=== PATIENT | male | born 1945 | race Hispanic/Latino ===

== ENCOUNTER → 2018-02-07 | Day surgery (SDC) | payer OTHER ==
[~2018-02-07] MED LIST: EPHEDRINE SULF 50 MG/ML SYR ONE; FENTANYL CITR 100 MCG/2 ML ONE; GLYCOPYRROLATE 0.2 MG/ML SYR ONE; LIDOCAINE 4% TOP SOLUTION ONE; NA CHLORIDE 0.9% 1,000 ML ONE; PROPOFOL 200 MG/20 ML VIAL IV ONE; Phenylephrine HCl 10 MG/ML 1 ML VIAL ONE
--- NOTE | 2018-02-08 07:39 | P.OP ---
Date of Service: 02/07/18 Findings and Operative Technique Patient is 73 years of age evaluated by me with hoarseness and a left upper lobe lung mass Narrative report after dinner in obtaining informed consent from the patient he was premedicated by anesthesia findings Normal vocal cords normal trachea normal right and left-sided bronchial anatomy is left upper lobe bronchial anatomy was a little abnormal most likely some mucosal protrusions or anomalies I was unable to visualize the lesion on fluoroscopy multiple biopsies and lavage were sent patient tolerated the procedure very well and there is no evidence of postoperative pneumothorax
== END | disposition home or self-care (01) ==
LOC: MERGE 06:50 → OR 06:50 → EDBD 08:00
PROVIDERS: ATTEND Internal Medicine Sleep Medicine
PROC: 0BB88ZX Excision of Left Upper Lobe Bronchus, Via Natural or Artificial Opening Endoscopic, Diagnostic (ICD-10-PCS; principal; 2018-02-07)
PROC: 0B9G8ZX Drainage of Left Upper Lung Lobe, Via Natural or Artificial Opening Endoscopic, Diagnostic (ICD-10-PCS; 2018-02-07)
DX: C34.12 Malignant neoplasm of upper lobe, left bronchus or lung (principal); J61 Pneumoconiosis due to asbestos and other mineral fibers; J44.9 Chronic obstructive pulmonary disease, unspecified; F17.210 Nicotine dependence, cigarettes, uncomplicated; E11.9 Type 2 diabetes mellitus without complications; I10 Essential (primary) hypertension
CPT/HCPCS: 31624; 31625; 82962; 88108; 88305 ×2; J2370; J3010; J7030

== ENCOUNTER → 2018-03-31 | Day surgery (SDC) | payer OTHER ==
--- OUTSIDE RECORDS SUMMARY | 2018-03-31 10:27 | XMS REPORT | Clinical Summary ---
:1945 Author Organization [facility] Address [address] [place] [id number] Care Team Providers Name Role Phone Asked, No Pcp Primary Care Provider Unavailable Allergies No Known Allergies Current Medications Prescription Sig. Disp. Refills Start Date End Date Status metFORMIN (GLUCOPHAGE) 500 02/13/2018 Active mg tablet lisinopril-hydrochlorothia TAKE BY MOUTH 1 3 03/02/2018 Active zide (PRINZIDE,ZESTORETIC) TABLET DAILY 20-12.5 mg per tablet finasteride (PROSCAR) 5 mg Take 5 mg by mouth 1 12/09/2017 Active tablet daily. tamsulosin (FLOMAX) 0.4 mg 02/13/2018 Active capsule,extended release 24hr potassium chloride 20 mEq Take 1 tablet by 0 02/27/2018 Active tablet extended release mouth daily. simvastatin (ZOCOR) 20 MG Take 20 mg by Active tablet mouth nightly. pentoxifylline (TRENTal) Take 400 mg by Active 400 mg CR tablet mouth 3 (three) times a day with meals. Active Problems No known active problems Encounters Date Type Specialty Care Team Description 03/16/2018 Telephone Cardiothoracic Surgery Sha Marie MD 03/14/2018 Hospital Encounter Cardiothoracic Surgery Sha aMrie Malignant neoplasm MD Binta of lung, unspecified laterality, unspecified part of lung (Primary Dx) 03/14/2018 Procedure Pass Cardiothoracic Surgery 03/14/2018 Surgery Cardiothoracic Surgery Sha Marie MD BRONCHOSCOPY, EBUS W/ BIOPSY 03/13/2018 Anesthesia Event Cardiothoracic Surgery Domingo Tavarez MD 03/10/2018 Hospital Encounter Radiology Sha Marie MD 03/10/2018 Ancillary Orders Radiology Sha Marie MD 03/09/2018 Lab Lab Sha Marie Lung mass; MD Binta LAD (lymphadenopathy), mediastinal; Pre-op testing 03/09/2018 Hospital Encounter Radiology Sha Marie MD 03/09/2018 Hospital Encounter Radiology Sha Marie MD 03/09/2018 Office Visit Cardiothoracic Surgery Sha Marie Lung mass ( Primary Dx); MD Binta LAD (lymphadenopathy), mediastinal; Pre-op testing 03/09/2018 Orders Only General Surgery Abdirashid Owen MD 03/09/2018 Ancillary Orders Sha Zavala MD 02/28/2018 Telephone Cardiothoracic Surgery Aurea Park MA 02/28/2018 Orders Only Cardiothoracic Surgery Provider, MD Brianda after 03/30/2017 Family History Medical History Relation Name Comments Diabetes Father Congenital heart disease Mother Diabetes Mother Relation Name Status Comments Father Mother Social History Tobacco Use Types Packs/Day Years Used Date Former Smoker Cigarettes 1 30 Quit: 03/02/2018 Smokeless Tobacco: Never Used Comments: quit for 6 year in 1995 Alcohol Use Drinks/Week oz/Week Comments Yes 6 Cans of beer 3.6 Sex Assigned at Date Recorded Not on file Last Filed Vital Signs Vital Sign Reading Time Taken Blood Pressure 98/55 03/14/2018 10:45 AM CDT Pulse 77 03/14/2018 10:45 AM CDT Temperature 36.9 C (98.5 F) 03/14/2018 10:45 AM CDT Respiratory Rate 18 03/14/2018 10:45 AM CDT Oxygen Saturation 98% 03/14/2018 10:45 AM CDT Inhaled Oxygen Concentration - - Weight 70.8 kg (156 lb) 03/14/2018 5:43 AM CDT Height 175.3 cm (5' 9") 03/14/2018 5:43 AM CDT Body Mass Index 23.04 03/14/2018 5:43 AM CDT Plan of Treatment Health Maintenance Due Date Last Done Comments COLON CANCER SCREENING 01/11/1994 SHINGRIX VACCINE (#1) 01/11/1994 ZOSTER VACCINE 2004 PNEUMOCOCCAL POLYSACCHARIDE VACCINE AGE 65 AND OVER 01/11/2009 PNEUMOCOCCAL-13 01/11/2009 INFLUENZA VACCINE 04/05/2018 Procedures Procedure Name Priority Date/Time Associated Comments Diagnosis XR CHEST 1 VW STAT 03/14/2018 9:47 Results for this PORTABLE AM CDT procedure are in the results section. POC GLUCOSE Routine 03/14/2018 9:24 Results for this AM CDT procedure are in the results section. CYTOLOGY Routine 03/14/2018 9:23 Results for this (NON-GYNECOLOGICAL) AM CDT procedure are in REQUEST the results section. CYTOLOGY Routine 03/14/2018 9:22 Results for this (NON-GYNECOLOGICAL) AM CDT procedure are in REQUEST the results section. CYTOLOGY Routine 03/14/2018 9:22 Results for this (NON-GYNECOLOGICAL) AM CDT procedure are in REQUEST the results section. CYTOLOGY Routine 03/14/2018 9:22 Results for this (NON-GYNECOLOGICAL) AM CDT procedure are in REQUEST the results section. CYTOLOGY Routine 03/14/2018 9:22 Results for this (NON-GYNECOLOGICAL) AM CDT procedure are in REQUEST the results section. CYTOLOGY Routine 03/14/2018 9:19 Results for this (NON-GYNECOLOGICAL) AM CDT procedure are in REQUEST the results section. CO AN ELECTIVE Routine 03/14/2018 8:12 ENDOTRACHEAL AIRWAY AM CDT Procedure Note - Nixon Fraga CRNA - 03/14/2018 8:12 AM CDT Airway Date/Time: 03/14/2018 8:02 AM Performed by: NIXON FRAGA Authorized by: DOMINGO TAVAREZ Location: OR Urgency: Elective Difficult Airway: No Anesthesiologist: DOMINGO TAVAREZ Resident/BOWLING BALL MARKER/AA: NIXON FRAGA Other Anesthesia Staff: JAMES PINK Performed by: other anesthesia staff Preoxygenated with 100% O2: Yes C-spine Precautions Maintained Throughout: Yes Mask Ventilation: Not attempted Final Airway Type: Endotracheal airway Final Endotracheal Airway: ETT Cuffed: Yes Technique Used: Direct laryngoscopy Devices/Methods Used in Placement: Intubating stylet Insertion Site: Oral Blade Type: Lyn Laryngoscope Blade/Videolaryngoscope Blade Size: 2 ETT Size (mm): 9.0 Cuff at minimum occlusion pressure: Yes Measured from: Lips ETT to Lips (cm): 23 Placement Verified by: CO2 detection, direct visualization and equal breath sounds Laryngoscopic view: Grade I - full view of glottis Rapid Sequence Induction (RSI): No Modified RSI: No Number of Attempts at Approach: 1 Pt ramped into sniffing position for alignment of airway axes. Atraumatic laryngoscopy and intubation. Eyelids taped fully closed after loss of lash reflex. DL x 1, visualized ETT passing through vocal cords. Placement confirmed: bilateral, equal breath sounds, + etCO2. Head and neck maintained in neutral alignment with spine throughout. Lips/dentition/oral structures as preinduction. All facial structures and occiput protected from pressure/compression. All bony prominences free of pressure. All pressure points padded. B arms wrapped securely in foam padding, <90 degree abduction from midline. ECG 12-LEAD STAT 03/14/2018 5:45 AM Results for this CDT procedure are in the results section. POC GLUCOSE Routine 03/14/2018 5:41 AM Results for this CDT procedure are in the results section. TYPE AND SCREEN Routine 03/09/2018 1:11 PM Lung mass Results for this CDT LAD procedure are in (lymphadenopathy the results ), mediastinal section. Pre-op testing CBC WITH PLATELET AND Routine 03/09/2018 12:00 AM Results for this DIFFERENTIAL CDT procedure are in the results section. PROTHROMBIN TIME WITH Routine 03/09/2018 12:00 AM Results for this INR CDT procedure are in the results section. PARTIAL THROMBOPLASTIN Routine 03/09/2018 12:00 AM Results for this TIME (PTT) CDT procedure are in the results section. COMPREHENSIVE METABOLIC Routine 03/09/2018 12:00 AM Results for this PANEL CDT procedure are in the results section. MRI BRAIN W WO CONTRAST Routine 02/24/2018 12:[address] WHOLE BODY Routine 02/23/2018 10:04 AM Results for this EXTERNAL STUDY CDT procedure are in the results section. PET CT SKULL BASE MID Routine 02/23/2018 12:00 AM THIGH EXTERNAL STUDY CDT CT NECK EXTERNAL STUDY Routine 01/20/2018 4:18 PM Results for this CDT procedure are in the results section. CT CHEST EXTERNAL STUDY Routine 01/20/2018 4:18 PM Results for this CDT procedure are in the results section. CT CHEST W CONTRAST Routine 01/20/2018 12:00 AM CDT after 03/30/2017 Results XR Chest 1 Vw Portable (03/14/2018 9:47 AM) Narrative Performed At Study:XR CHEST 1 VW PORTABLE [facility] History: Post-op surgery COMPARISON: CT chest external study January 20, 2018. IMPRESSION: A single view of the chest. Faint nodular opacity in the left upper lobe measuring 2.7 cm and some subpleural opacity in the lingula similar to the prior CT chest. No pneumothorax. Mild streaky faint opacity in the right lung base could be due to some degree of pneumonitis. Cardiac silhouette is normal.Visualized osseous structures arewithout acute abnormality. [facility]-[id number] Procedure Note Hm Interface, Radiology Results Incoming - 03/14/2018 9:53 AM CDT Study:XR CHEST 1 VW PORTABLE History: Post-op surgery COMPARISON: CT chest external study January 20, 2018. IMPRESSION: A single view of the chest. Faint nodular opacity in the left upper lobe measuring 2.7 cm and some subpleural opacity in the lingula similar to the prior CT chest. No pneumothorax. Mild streaky faint opacity in the right lung base could be due to some degree of pneumonitis. Cardiac silhouette is normal. Visualized osseous structures are without acute abnormality. [facility]-[id number] Performing Organization Address City/[facility] Phone Number [address] [address] POC glucose (03/14/2018 9:24 AM)Only the most recent of2 resultswithin the time period is included. POC glucose 110 (H) 65 - 99 mg/dL [facility] DEPARTMENT OF PATHOLOGY Comment: AND GENOMIC MEDICINE [facility] Notified RN Meter ID: [id number] Management Consultant: Rayo Fraga Performing Organization Address City/[facility] Phone Number [facility] DEPARTMENT OF PATHOLOGY AND [address] [place] [address] GENOMIC MEDICINE Cytology (non-gynecological) request (03/14/2018 9:23 AM)Only the most recent of6 resultswithin the time period is included. [facility] DEPARTMENT OF PATHOLOGY AND GENOMIC MEDICINE Cytology See link below for PDF [facility] DEPARTMENT OF (non-gynecological) report Lab Report PATHOLOGY AND GENOMIC MEDICINE Result status This is Final Report to [facility] DEPARTMENT OF [id number] PATHOLOGY AND GENOMIC MEDICINE Performing Organization Address City/[facility] Phone Number [facility] DEPARTMENT OF PATHOLOGY AND [address] [place] [phone] GENOMIC MEDICINE ECG 12 lead (03/14/2018 5:45 AM) Ventricular rate 82 [facility]USE Atrial rate 82 [facility] MUSE CO interval 148 [facility] MUSE QRSD interval 86 [facility] QT interval 386 [facility] MUSE QTC interval 450 [facility] MUSE P axis 1 48 [facility] MUSE QRS axis 1 23 [facility] MUSE T wave axis 59 [facility] MUSE EKG impression Normal sinus rhythm-Cannot rule out Anteroseptal infarct ( cited on or before 14-MAR-2018)-Abnormal ECG-In automated comparison with ECG of 10-JUL-2012 11:48,-Questionable change in initial forces of Ant [facility] MUSE eroseptal leads- Performing Organization Address City/[facility]/Zipcode Phone Number [facility] MUSE [address] [place] [address] Type and screen (03/09/2018 1:11 PM) ABO grouping A [facility] DEPARTMENT OF PATHOLOGY AND GENOMIC MEDICINE Rh type POS [facility] DEPARTMENT OF PATHOLOGY AND GENOMIC MEDICINE Antibody screen (gel) NEG [facility] DEPARTMENT OF PATHOLOGY AND GENOMIC MEDICINE Specimen Blood Performing Organization Address City/[facility]/Zipcode Phone Number [facility] DEPARTMENT OF PATHOLOGY AND [address] [place] [address] [employer] Partial thromboplastin time, activated (03/09/2018) PTT 31 22 - 34 sec [employer] [facility] Comment: This test has not been validated for monitoring unfractionated heparin therapy. For testing that is validated for this type of therapy, please refer to the Heparin Anti-Xa assay (test code 49037). For additional information, please refer to http://education.Graviton/faq/FTS340 (This link is being provided for informational/educational purposes only.) Narrative Performed At FASTING: UNKNOWN [facility] Resulting Agency Comment Performing Organization Information: Site ID: [id number] Name: [facility] Address: [address] [place] [phone] Director: Rita Webb Performing Organization Address City/State/Zipcode Phone Number [employer] [facility] [address] [place] [phone] Prothrombin time with INR (03/09/2018) INR 1.0 [employer] [facility] Comment: Reference Range 0.9-1.1 Moderate-intensity Warfarin Therapy 2.0-3.0 Higher-intensity Warfarin Therapy 3.0-4.0 Prothrombin time 11.0 9.0 - 11.5 sec [employer] [facility] Comment: For more information on this test, go to: http://education.EVRST/faq/YOZ065 Narrative Performed At FASTING: UNKNOWN [facility] Resulting Agency Comment Performing Organization Information: Site ID: [facility] Name: [facility] Address: [address] [place] [phone] Director: Rita Webb Performing Organization Address City/State/Zipcode Phone Number [employer] [address] [address] CBC with platelet and differential (03/09/2018) WBC 8.4 3.8 - 10.8 Thousand/uL [employer] [facility] RBC 5.17 4.20 - 5.80 Million/uL [employer] [facility] HGB 15.0 13.2 - 17.1 g/dL [employer] [facility] HCT 43.8 38.5 - 50.0 % [employer] [facility] MCV 84.7 80.0 - 100.0 fL [employer] [facility] MCH 29.0 27.0 - 33.0 pg [employer] [facility] MCHC 34.2 32.0 - 36.0 g/dL [employer] [facility] RDW 14.2 11.0 - 15.0 % [employer] [facility] Platelet count 248 140 - 400 Thousand/uL [employer] [facility] MPV 9.9 7.5 - 12.5 fL [employer] [facility] Neutrophils, absolute 5,620 1,500 - 7,800 cells/uL [employer] [facility] Lymphocytes, absolute 1,957 850 - 3,900 cells/uL [employer] [facility] Monocytes, absolute 512 200 - 950 cells/uL [employer] [facility] Eosinophils, absolute 227 15 - 500 cells/uL [employer] [facility] Basophils, absolute 84 0 - 200 cells/uL [employer] [facility] Neutrophils 66.9 % [employer] [facility] Lymphocytes 23.3 % [employer] [facility] Monocytes 6.1 % [employer] [facility] Eosinophils 2.7 % [employer] [facility] Basophils + RC 1.0 % [employer] [facility] Narrative Performed At FASTING: UNKNOWN [facility] Resulting Agency Comment Performing Organization Information: Site ID: [id number] Name: [facility] Address: [address] [place] [phone] Director: Rita Webb Performing Organization Address [facility] Phone Number [employer] [facility] [address] [place] [phone] Comprehensive metabolic panel (03/09/2018) Glucose 103 (H) 65 - 99 mg/dL [employer] Comment: [facility] Fasting reference interval For someone without known diabetes, a glucose value between 100 and 125 mg/dL is consistent with prediabetes and should be confirmed with a follow-up test. BUN, whole blood 13 7 - 25 mg/dL [employer] [facility] Creatinine 0.91 0.70 - 1.18 [employer] Comment: mg/dL [facility] For patients >49 years of age, the reference limit for Creatinine is approximately 13% higher for people identified as -Tunisian. EGFR Non-Afr. Tunisian 83 > OR=60 [facility] mL/min/1.73m2 [facility] EGFR 96 > OR=60 [facility] mL/min/1.73m2 [facility] BUN/creatinine ratio NOT APPLICABLE 6 - 22 (calc) [employer] [facility] Sodium 138 135 - 146 mmol/L [employer] [facility] Potassium 4.5 3.5 - 5.3 mmol/L [employer] [facility] Chloride 98 98 - 110 mmol/L [employer] [facility] CO2 33 (H) 20 - 31 mmol/L [employer] [facility] Calcium 9.7 8.6 - 10.3 mg/dL [employer] [facility] Protein 7.2 6.1 - 8.1 g/dL [employer] [facility] Albumin, S 4.4 3.6 - 5.1 g/dL [employer] [facility] Globulin, total 2.8 1.9 - 3.7 g/dL [employer] (calc) [facility] Albumin/globulin ratio 1.6 1.0 - 2.5 (calc) [employer] [facility] Total bilirubin 0.5 0.2 - 1.2 mg/dL [employer] [facility] Alkaline phosphatase 102 40 - 115 U/L [employer] [facility] AST 16 10 - 35 U/L [employer] [facility] ALT 16 9 - 46 U/L [employer] [facility] Narrative Performed At FASTING: UNKNOWN [facility] Resulting Agency Comment Performing Organization Information: Site ID: [id number] Name: [facility] Address: [address] [place] [phone] Director: Rita Webb Performing Organization Address City/[facility] Phone Number [employer] [address] [address] MRI Brain W Wo Contrast (02/24/2018) Narrative Performed At PET/CT Whole Body External Study (02/23/2018 10:04 AM) Narrative Performed At This exam was not acquired at a [facility] facility and has not been [facility] interpreted by a [facility] Provider.The exam was imported into our imaging system for comparisons purposes. Performing Organization Address City/[facility] Phone Number [facility] [address] [place] [address] PET/CT Skull Base Mid Thigh External Study (02/23/2018) Narrative Performed At CT Neck External Study (01/20/2018 4:18 PM) Narrative Performed At This exam was not acquired at a [facility] facility and has not been [facility] interpreted by a [facility] Provider.The exam was imported into our imaging system for comparisons purposes. Performing Organization Address [facility] Veg[facility] Phone Number [facility] [address] [place] [address] CT Chest External Study (01/20/2018 4:18 PM) Narrative Performed At This exam was not acquired at a [facility] facility and has not been [facility] interpreted by a [facility] Provider.The exam was imported into our imaging system for comparisons purposes. Performing Organization Address [facility] Phone Number [facility] [address] [place] [address] CT Chest W Contrast (01/20/2018) Narrative Performed At after 03/30/2017 Insurance Payer Benefit Plan / Group Subscriber ID Type Phone Address AETNA MEDICARE AETNA MEDICARE HMO/PPO [facility] xxxxxxxx HMO [phone] [place] [address]
--- NOTE | 2018-03-31 13:22 | RAD REPORT ---
EXAM DESCRIPTION: US - Biopsy Lymph Node - 03/31/2018 12:44 pm CLINICAL HISTORY: C78.1, C78.01 COMPARISON: CT radiation planning study March 28, PET-CT study February 23 TECHNIQUE: Patient presents for imaging guided FNA/biopsy of PET avid lymph nodes in the neck. PET-C T study showed PET avid lymph nodes adjacent to the right-side parotid gland. Preliminary imaging showed an approximately 15 millimeter oval mass or lymph node along the deep pavel in of the parotid gland. An 11 millimeter abnormal lymph node was seen along the inferior margin of t he parotid gland between the gland in the sternocleidomastoid muscle. These are the 2 PET avid lymph nodes seen on the PET-CT study. The smaller more inferior lymph node was felt to be discrete from the parotid gland and distant from the expected path of the facial nerve. The ultrasound-guided biopsy procedure, risks and alternatives were discussed with the patient in det ail. After answering all questions, oral and written consent were obtained. Time out procedure was pe rformed. The upper right neck skin was prepped and draped in the usual sterile fashion. Skin and deeper tissue s were anesthetized with 1% lidocaine. Under direct sonographic visualization the 17 gauge introducer needle was advanced. Tip was placed at the lateral margin of the lymph node. Again under sonographic guidance an 18 gauge biopsy needle was advanced with the tip placed at the lateral margin of the lym ph node. A 1 centimeter core biopsy was obtained. Course of the needle was seen to pass through the l ymph node. Only small fragments of tissue were obtained on the initial biopsy. Two additional 1 centi meter long core biopsies were obtained using a second 18 gauge needle. Sonographic assessment showed needle to traverse the lymph node. Again, only small fragments of tissue were obtained. No additional biopsies performed. The lymph node was technically challenging to access in the patient was having discomfort during the biopsy procedure. All obtained material was given to pathology for assessment. Post biopsy imaging showed no hematoma i n the soft tissues. Patient indicated no pain or pressure at the conclusion of the procedure. Sterile bandage placed to the puncture site. Postprocedure care and precaution instructions were given to th e patient. IMPRESSION: Ultrasound-guided biopsy was performed of 1 of 2 PET avid lymph nodes in proximity to th e right parotid gland. Only small fragments of tissue could be obtained. No further biopsy was performed due to technically challenging positioning of the lymph node and patient discomfort. There are no immediate complications. Postprocedure care and precaution instructions were given to th e patient.
== END ==
LOC: FNA 10:25
PROVIDERS: ATTEND Internal Medicine Medical Oncology
PROC: 07D13ZX Extraction of Right Neck Lymphatic, Percutaneous Approach, Diagnostic (ICD-10-PCS; principal; 2018-03-31)
PROC: BW4FZZZ Ultrasonography of Neck (ICD-10-PCS; 2018-03-31)
DX: C78.01 Secondary malignant neoplasm of right lung (principal); C34.12 Malignant neoplasm of upper lobe, left bronchus or lung
CPT/HCPCS: 38505; 76942; 88305

== ENCOUNTER 2019-02-11 14:17 | Inpatient (IN) | payer OTHER ==
--- OUTSIDE RECORDS SUMMARY | 2019-02-11 14:20 | XMS REPORT | Clinical Summary ---
:1945 Author Organization [facility] Address [address] [place] [address] Care Team Providers Name Role Phone Asked, No Pcp Primary Care Provider Unavailable Allergies No Known Allergies Medications Medication Sig Dispensed Refills Start Date End Date Status metFORMIN (GLUCOPHAGE) 0 02/13/2018 Active 500 mg tablet lisinopril-hydrochloroth TAKE BY MOUTH 1 3 03/02/2018 Active iazide TABLET DAILY (PRINZIDE,ZESTORETIC) 20-12.5 mg per tablet finasteride (PROSCAR) 5 Take 5 mg by 1 12/09/2017 Active mg tablet mouth daily. tamsulosin (FLOMAX) 0.4 0 02/13/2018 Active mg capsule,extended release 24hr potassium chloride 20 Take 1 tablet by 0 02/27/2018 Active mEq tablet extended mouth daily. release simvastatin (ZOCOR) 20 Take 20 mg by 0 Active MG tablet mouth nightly. pentoxifylline (TRENTal) Take 400 mg by 0 Active 400 mg CR tablet mouth 3 (three) times a day with meals. Active Problems No known active problems Encounters Date Type Specialty Care Team Description 03/16/2018 Telephone Cardiothoracic Surgery Sha Marie MD 03/14/2018 Surgery Cardiothoracic Surgery Sha Marie FLEXIBLE MD [facility] BRONCHOSCOPY, EBUS W/ BIOPSY 03/14/2018 Anesthesia Event Cardiothoracic Surgery Domingo Tavarez MD 03/14/2018 Hospital Encounter Cardiothoracic Surgery Sha Marie Malignant neoplasm MD [place] of lung, unspecified laterality, unspecified part of lung (Primary Dx) 03/10/2018 Hospital Encounter Radiology Sha Marie MD 03/09/2018 Lab Lab Sha Marie Lung mass; MD [place] LAD (lymphadenopathy), mediastinal; Pre-op testing 03/09/2018 Hospital Encounter Radiology Sha Marie MD 03/09/2018 Hospital Encounter Radiology Sha Marie MD 03/09/2018 Office Visit Cardiothoracic Surgery Sha Marie Lung mass ( Primary Dx); MD [place] LAD (lymphadenopathy), mediastinal; Pre-op testing 03/09/2018 Orders Only General Surgery Abdirashid Owen MD 02/28/2018 Telephone Cardiothoracic Surgery Aurea Park MA 02/28/2018 Orders Only Cardiothoracic Surgery ProviderBrianda MD after 02/10/2018 Family History Medical History Relation Name Comments [...] Assigned at Date Recorded Not on file Job Start Date Occupation Industry Not on file Not on file Not on file Travel History Travel Start Travel End No recent travel history available. Last Filed Vital Signs Vital Sign Reading [...] Last Done Comments COLON CANCER SCREENING 01/11/1994 SHINGLES VACCINES (#1) 01/11/1994 65+ PNEUMOCOCCAL VACCINE (1 of 2 - PCV13) 01/11/2009 INFLUENZA VACCINE 04/05/2019 Procedures Procedure Name Priority Date/Time Associated Comments Diagnosis XR CHEST 1 VW PORTABLE STAT 03/14/2018 9:47 Results for this AM CDT procedure are [...] procedure are in REQUEST the results section. MISCELLANEOUS REFERRAL Routine 03/14/2018 9:22 Results for this TEST AM CDT procedure are in the results section. CYTOLOGY Routine 03/14/2018 9:19 Results for this (NON-GYNECOLOGICAL) AM CDT procedure are in REQUEST the results section. 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 PET CT SKULL BASE MID Routine 02/23/2018 THIGH EXTERNAL STUDY after 02/10/2018 Results XR Chest 1 Vw Portable (03/14/2018 9:47 AM CDT) Specimen Narrative Performed At Study:XR CHEST 1 VW [...] is normal.Visualized osseous structures arewithout acute abnormality. [facility]-[id number] Procedure Note Interface, Radiology Results Incoming - 03/14/2018 9:53 [...] Visualized osseous structures are without acute abnormality. [facility]-[id number] Performing Organization Address City/[facility]/Zipcode Phone Number [facility] [address] [place] [phone] POC glucose (03/14/2018 9:24 AM CDT)Only the most recent of2 resultswithin the time period is included. [facility] POC glucose 110 (H) 65 - 99 mg/dL [facility] DEPARTMENT OF Comment: PATHOLOGY AND [facility] Notified RN GENOMIC MEDICINE Meter ID: [id number] Phone Specialist: Rayo Fraga Specimen Performing Organization Address City/[facility]/Zipcode Phone Number [facility] DEPARTMENT OF PATHOLOGY AND [address] [place] [address] GENOMIC MEDICINE Cytology (non-gynecological) request (03/14/2018 9:23 AM CDT)Only the most recent of7 resultswithin the time period is included. Pathologist [facility] DEPARTMENT OF PATHOLOGY AND GENOMIC MEDICINE Cytology See link below [facility] DEPARTMENT OF (non-gynecological) for PDF Lab PATHOLOGY AND report Report GENOMIC MEDICINE Result status This is Final [facility] DEPARTMENT OF Report to PATHOLOGY AND [id number] GENOMIC MEDICINE Specimen Performing Organization Address City/[facility] Phone Number [facility] DEPARTMENT OF PATHOLOGY AND [address] [place] [phone] GENOMIC MEDICINE Miscellaneous referral test (03/14/2018 9:22 AM CDT) Pathologist [facility] Misc test name NEOOverdog MET [facility] Misc test result SEE NOTE [facility] Comment: MET FISH Sample type: Paraffin, LYMPH NODE Case# [id number] RESULTS: NEGATIVE Interpretation: MET(7q31) signals per nucleus: 4.0 CEN7 signals per nucleus: 3.9 MET-CEN7 signal ratio: 1.0 An H&E stained slide was reviewed by a pathologist to identify traget areas containing invasive tumor. FISH analysis was performed within the marked target areas using a dual-probe FISH assay to detect MET overexpression. Results show no evidence of MET amplification with a MET/CEN7 ratio of <2.0. This is a NEGATIVE result. This MET FISH assay was scored manually by a certified clinical technologist. Two or more independent areas containing invasive tumor were analyzed and the technical results underwent further review for research quality assurance analyst purposes. Reference range: Positive: MET(7q31) to CEN7 signal ration is >/=2.0 or when 10% of tumor cells contain clusters of >15 copies per cell of MET (7q31) signals. Negative: MET(7q31) to CEN7 signal ratio is <2.0 Equivocal: MET copy number >/=5.0 and MET/CEN7 ratio <2.0 Probe set details: MET: nuc doreen(CEN7x3.9,METx4.0)[50] Nuclei scored: 50 Test(s) performed by: Koudai 5 DAVID Antonio Specimen Narrative Performed At [employer] MET [facility] [id number] Performing Organization Address City/[facility] Phone Number [facility] [address] [place] [address] ECG 12 lead (03/14/2018 5:45 AM CDT) Ventricular rate 82 [facility] Atrial rate 82 [facility] MT interval 148 [facility] QRSD interval 86 [facility] QT interval 386 [facility] QTC interval 450 [facility] P axis 1 48 [facility] QRS axis 1 23 [facility] T wave axis 59 [facility] EKG impression Normal sinus rhythm-Cannot rule out Anteroseptal infarct ( cited on or before 14-MAR-2018)-Abnormal ECG-In automated comparison with ECG of 10-JUL-2012 11:48,-Questionable change in initial forces of Ant [facility] eroseptal leads- Specimen Performing Organization Address City/State/Zipcode Phone Number [facility] [address] [place] [address] Type and screen (03/09/2018 1:11 PM CDT) Pathologist [facility] ABO grouping A [facility] DEPARTMENT OF PATHOLOGY AND GENOMIC MEDICINE Rh type POS [facility] DEPARTMENT OF PATHOLOGY AND GENOMIC MEDICINE Antibody screen (gel) NEG [facility] DEPARTMENT OF PATHOLOGY AND GENOMIC MEDICINE Specimen Blood Performing Organization Address [facility] Centercode Phone Number [facility] DEPARTMENT OF PATHOLOGY AND [address] [place] [phone] [facility] Partial thromboplastin time, activated (03/09/2018 12:00 AM CDT) Pathologist [facility] PTT 31 22 - 34 sec [facility] Comment: [place] This test has not been validated for monitoring unfractionated heparin therapy. For testing that is validated for this type of therapy, please refer to the Heparin Anti-Xa assay (test code 00142). For additional information, please refer to http://Tripbirds.Monstrous/faq/ACZ368 (This link is being provided for informational/educational purposes only.) Specimen Narrative Performed At FASTING: UNKNOWN [facility]ing [facility] Comment Performing Organization Information: Site ID: [id number] Name: [facility] Address: [address] [place] [phone] Director: Rita Webb Performing Organization Address [facility] Number [facility] [address] [address] Prothrombin time with INR (03/09/2018 12:00 AM CDT) Pathologist [facility] INR 1.0 [facility] Comment: [place] Reference Range 0.9-1.1 Moderate-intensity Warfarin Therapy 2.0-3.0 Higher-intensity Warfarin Therapy 3.0-4.0 Prothrombin time 11.0 9.0 - 11.5 [facility] Comment: sec AYERS For more information on this test, go to: http://Tripbirds.[email or web address]/faq/[email or web address] Specimen Narrative Performed At FASTING: [facility]KNOWN [facility] Comment Performing Organization Information: Site ID: [id number] Name: [facility] Address: [address] [place] [phone] Director: Rita Webb Performing Organization Address City/State/Zipcode Phone Number [employer] [place] [phone] CBC with platelet and differential (03/09/2018 12:00 AM CDT) [facility] WBC 8.4 3.8 - 10.8 [facility] Thousand/uL [place] RBC 5.17 4.20 - 5.80 [facility] Million/uL [place] HGB 15.0 13.2 - 17.1 [facility] g/dL [place] HCT 43.8 38.5 - 50.0 % [facility] [place] MCV 84.7 80.0 - 100.0 fL [facility] [place] MCH 29.0 27.0 - 33.0 pg [facility] [place] MCHC 34.2 32.0 - 36.0 [facility] g/dL [place] RDW 14.2 11.0 - 15.0 % [facility] [place] Platelet count 248 140 - 400 [facility] Thousand/uL [place] MPV 9.9 7.5 - 12.5 fL [facility] [place] Neutrophils, absolute 5,620 1,500 - 7,800 [facility] cells/uL [place] Lymphocytes, absolute 1,957 850 - 3,900 [facility] cells/uL [place] Monocytes, absolute 512 200 - 950 [facility] cells/uL [place] Eosinophils, absolute 227 15 - 500 [facility] cells/uL [place] Basophils, absolute 84 0 - 200 [facility] cells/uL [place] Neutrophils 66.9 % [facility] [place] Lymphocytes 23.3 % [facility] [place] Monocytes 6.1 % [facility] [place] Eosinophils 2.7 % [facility] [place] Basophils + RC 1.0 % [facility] [place] Specimen Narrative Performed At FASTING: [facility]KNOWN [facility] Resulting [facility] Comment Performing Organization Information: Site ID: [id number] Name: [facility] Address: [address] [place] [phone] Director: Rita Webb Performing Organization Address City/State/Zipcode Phone Number [employer] [address] [address] Comprehensive metabolic panel (03/09/2018 12:00 AM CDT) [facility] Glucose 103 (H) 65 - 99 [facility] Comment: mg/dL [place] Fasting reference interval For someone without known diabetes, a glucose value between 100 and 125 mg/dL is consistent with prediabetes and should be confirmed with a follow-up test. BUN, whole blood 13 7 - 25 mg/dL [facility] [place] Creatinine 0.91 0.70 - 1.18 [facility] Comment: mg/dL [place] For patients >49 years of age, the reference limit for Creatinine is approximately 13% higher for people identified as -[place]. EGFR Non-Afr. 83 > OR=60 [facility] [place] mL/min/1.73m [place] 2 EGFR 96 > OR=60 [facility] [place] mL/min/1.73m [place] 2 BUN/creatinine NOT APPLICABLE 6 - 22 [facility] ratio (calc) [place] Sodium 138 135 - 146 [facility] mmol/L [place] Potassium 4.5 3.5 - 5.3 [facility] mmol/L [place] Chloride 98 98 - 110 [facility] mmol/L [place] CO2 33 (H) 20 - 31 [facility] mmol/L [place] Calcium 9.7 8.6 - 10.3 [facility] mg/dL [place] Protein 7.2 6.1 - 8.1 [facility] g/dL [place] Albumin, S 4.4 3.6 - 5.1 [facility] g/dL [place] Globulin, total 2.8 1.9 - 3.7 [facility] g/dL (calc) [place] Albumin/globulin 1.6 1.0 - 2.5 [facility] ratio (calc) [place] Total bilirubin 0.5 0.2 - 1.2 [facility] mg/dL [place] Alkaline 102 40 - 115 U/L [facility] phosphatase [place] AST 16 10 - 35 U/L [facility] [place] ALT 16 9 - 46 U/L [employer] [place] Specimen Narrative Performed At FASTING: [facility]KNOWN [facility] Resulting [facility] Comment Performing Organization Information: Site ID: [id number] Name: [facility] Address: [address] [place] [phone] Director: Rita Webb Performing Organization Address City/[facility] Phone Number [employer] [place] [phone] MRI Brain W Wo Contrast (02/24/2018) Narrative Performed At PET/CT Whole Body External Study (02/23/2018 10:04 AM CDT) Specimen Narrative Performed At This exam was not acquired at a [facility] facility and has not been RADIANT interpreted by a [facility] Provider.The exam was imported into our imaging system for comparisons purposes. Performing Organization Address City/[facility]/Zipcode Phone Number MARGARITA BROCK [address] [place] [address] PET/CT Skull Base Mid Thigh External Study (02/23/2018) Narrative Performed At after 02/10/2018 Advance Directives Patient has advance care planning documents on file. For more information, please contact:[place] [address] [place] [address]
[2019-02-11 15:18] LABS: Absolute Lymphocytes (CBC) 0.9 K/uL (0.7-4.9); Absolute Monocytes 0.9 K/uL (0.1-1.3); Absolute Neutrophil 8.1 K/uL (1.8-8.0); Basophils % 0.5 % (0-1.3); Eosinophils % 0.5 % (0-4.4); Hematocrit 36.9 % (39.6-49.0); Lymphocytes % 8.6 % (15.3-44.8); MPV 6.9 fL (7.6-11.3); Monocytes % 9.4 % (3.3-12.3); RBC Red Blood Cell Count 4.29 M/uL (4.33-5.43)
[2019-02-11] MEDS ORDERED: ONDANSETRON 4 MG/2 ML VIAL ONE (15:30)
[2019-02-11] MEDS ORDERED: NA CHLORIDE 0.9% 1,000 ML ONE (15:30)
[2019-02-11 15:35] LABS: BUN Blood Urea Nitrogen 12 mg/dL (7-18); Bicarbonate 26 mmol/L (21-32); Glucose Level 100 mg/dL (74-106); Potassium 3.3 mmol/L (3.5-5.1); Sodium Level 138 mmol/L (136-145)
--- NOTE | 2019-02-11 16:09 | RAD REPORT ---
EXAM DESCRIPTION: CT - Head Brain Wo Cont - 02/11/2019 3:57 pm CLINICAL HISTORY: Transient alteration of awareness COMPARISON: CT imaging June 2018 TECHNIQUE: Axial 5 mm thick images of the head were obtained without IV contrast. All CT scans are performed using dose optimization technique as appropriate and may include automated exposure control or mA/KV adjustment according to patient size. FINDINGS: No intracranial hemorrhage, mass, edema or shift of mid-line structures. No acute cortical based infarction. Advanced atrophy and chronic ischemic changes are present. No abnormal extra-axial fluid collections. Ventricles are in proportion to the amount of volume loss. Left side mastoid air cells are clear. Visualized paranasal sinuses are clear. Right-side mastoid opa cification is present, stable from prior imaging No acute bony findings. IMPRESSION: Advanced atrophy and chronic ischemic change with no acute intracranial finding. Chronic ischemic changes can mask nonhemorrhagic acute infarction. MR brain followup can be obtained if there is ongoing concern for acute ischemia. Chronic right mastoiditis changes.
--- NOTE | 2019-02-11 16:41 | RAD REPORT ---
EXAM DESCRIPTION: CT - Abdomen Pelvis W Contrast - 02/11/2019 4:07 pm CLINICAL HISTORY: Abdominal pain, diarrhea, vomiting, altered mental status COMPARISON: CT June 2018 TECHNIQUE: Biphasic, helical CT imaging of the abdomen and pelvis was performed following 100 ml non -ionic IV contrast. Oral contrast was given. All CT scans are performed using dose optimization technique as appropriate and may include automated exposure control or mA/KV adjustment according to patient size. FINDINGS: Trace amount of pleural fluid seen in the left gutter. No pericardial thickening or effusi on. The liver, spleen, and pancreas show no suspicious findings. Gallbladder and biliary tree are also wi thout suspicious finding. Gallstones can be occult on CT imaging. Symmetric renal function is seen with no hydronephrosis or suspicious renal mass. No pyelonephritis o r acute parenchymal process. No bladder abnormalities. No adrenal abnormalities. Penile prosthesis in place. Right lower quadrant fluid collection is a chronic reservoir for the implant. Findings are st able from the comparison. No dilated bowel loops or bowel wall thickening. Appendix is normal. There is diverticulosis without diverticulitis. This is a minimal finding. No free air, free fluid or inflammatory stranding. No her kunal, mass or bulky lymphadenopathy. Disc and bone degenerative changes are present. Dense vascular calcifications seen. No acute bone or vascular finding. IMPRESSION: Contrast enhanced CT abdomen and pelvis showing no significant or suspicious finding. T he above detailed findings are not significantly different from June 2018. Trace left pleural effusion.
[2019-02-11] MEDS: NA CHLORIDE 0.9% 1,000 ML IV SCH ×2 (18:00→20:49)
--- NOTE | 2019-02-11 18:02 | ER ---
Nurse's Notes [facility] Name: Vel Reynolds Age: 74 yrs Sex: Male : 1945 Arrival Date: 02/11/2019 Time: 14:19 Bed 6 Private MD: Diagnosis: Dehydration;Weakness;Delirium due to known physiological condition;Failure of outpatient therapy Presentation: 02/11 14:30 Presenting complaint: Son reports pt has been hallucinating today, talking to people hb that are not present, remembering events that did not happen. Pt is doing daily oral chemo and weekly IV chemo for throat and bone cancer, concerned he is dehydrated due to N/V related to chemo. Transition of care: patient was not received from another setting of care. Onset of symptoms was February 11, 2019. Risk Assessment: Do you want to hurt yourself or someone else? Patient reports no desire to harm self or others. Care prior to arrival: None. 14:30 Method Of Arrival: Wheelchair hb 14:30 Acuity: BETSY 3 hb 14:50 Initial Sepsis Screen: Does the patient meet any 2 criteria? No. Patient's initial aa5 sepsis screen is negative. Does the patient have a suspected source of infection? No. Patient's initial sepsis screen is negative. Historical: - Allergies: 14:34 No Known Allergies; hb - Home Meds: 15:20 tamsulosin 0.4 mg oral cp24 1 cap once daily [Active]; ondansetron 4 mg oral TbDL every aa5 4-6 hours [Active]; prednisone 5 mg Oral tab 2 times per day [Active]; Tylenol #3 Oral 1-2 tabs every 4-6 hrs as needed [Active]; simvastatin 20 mg Oral tab 1 tab once daily [Active]; potassium chloride 20 mEq oral TbTQ once daily [Active]; finasteride 5 mg oral tab 1 tab once daily [Active]; metformin 1,000 mg oral tab once a day [Active]; dexamethasone 4 mg oral tab take 2 1/2 tabs at 5PM and 10PM the night before each chemo [Active]; lisinopril-hydrochlorothiazide 20-12.5 mg oral tab once daily [Active]; finasteride 5 mg oral tab 1 tab once daily [Active]; simvastatin 20 mg Oral tab once daily [Active]; - PMHx: 15:20 Throat Cancer; Hyperlipidemia; Hypertension; Diabetes - NIDDM; aa5 18:00 Penile implant; aa5 - Immunization history:: Adult Immunizations up to date. - Social history:: Smoking status: Patient/guardian denies using tobacco. - Ebola Screening: : No symptoms or risks identified at this time. - Family history:: not pertinent. - Hospitalizations: : No recent hospitalization is reported. Screenin:10 Abuse screen: Denies threats or abuse. Nutritional screening: No deficits noted. aa5 Tuberculosis screening: No symptoms or risk factors identified. Fall Risk Fall in past 12 months (25 points). IV access (20 points). Total Frias Fall Scale indicates High Risk Score (45 or more points). Fall prevention measures have been instituted. Side Rails Up X 2 Placed Close to Nursing Station. Assessment: 14:50 General: Appears comfortable, Behavior is calm, cooperative. Pain: Denies pain. Neuro: aa5 Level of Consciousness is awake, obeys commands, confused, Oriented to person, place, time, Supervisor Last Model Department are weak bilaterally Moves all extremities. Speech is normal, Facial symmetry appears normal, Pupils are PERRLA, Reports "feeling tired", denies weakness. . Cardiovascular: Denies chest pain, Heart tones S1 S2 present Pulses are 2+ in bilateral lower extremities, pitting edema Rhythm is regular. Respiratory: Airway is patent Respiratory effort is even, unlabored, Respiratory pattern is regular, symmetrical, Denies shortness of breath. GI: Abdomen is round Bowel sounds present X 4 quads. Abd is soft and non tender X 4 quads. Reports nausea, vomiting. : No signs and/or symptoms were reported regarding the genitourinary system. EENT: No signs and/or symptoms were reported regarding the EENT system. Derm: Skin is pink, warm \\T\\ dry. Musculoskeletal: Range of motion: intact in all extremities. Injury Description: Reports fall 1 week ago, denies LOC, denies head injury. Skin tear noted to right wrist and bruising that it's dark purple noted to right wrist and top of right hand. 14:50 Reassessment: Pt's son states "he gets IV chemo once a week and takes oral chemo every aa5 day". Reports last IV chemo was on and reports pt was taken off oral chemo since due to increased nausea and vomiting to prevent dehydration. Pt's son states "He also doesn't eat much because everything he eats he throws back up". Pt's son also reports pt has been on oral chemo for only 2-3 weeks and nausea/vomiting has increased since he started taking oral chemo.. 15:30 Reassessment: Patient is alert, oriented x 3, equal unlabored respirations, skin aa5 warm/dry/pink. Patient denies pain at this time. Pt sitting up in bed. Pt's son at bedside. . 18:00 Reassessment: Patient is alert, oriented x 3, equal unlabored respirations, skin aa5 warm/dry/pink. Pt cleaned of urinary incontinence. . 19:08 Reassessment: Unsuccessful attempt to call report to admitting nurse. . aa5 19:22 Reassessment: Cleaned of urinary incontinence. la1 Vital Signs: 14:34 BP 108 / 58; Pulse 76; Resp 18; Temp 99.5; Pulse Ox 97% on R/A; Weight 74.84 kg; Height hb 5 ft. 11 in. (180.34 cm); Pain 0/10; 14:50 BP 103 / 60; Pulse 73; Resp 16 S; Pulse Ox 98% on R/A; aa5 15:20 BP 114 / 66; Pulse 72; Resp 16 S; Pulse Ox 98% on R/A; aa5 18:00 BP 141 / 59; Pulse 75; Resp 16 S; Temp 98.8(O); Pulse Ox 97% on R/A; aa5 19:10 BP 138 / 62; Pulse 70; Resp 17; Temp 98.7; Pulse Ox 97% ; rr5 14:34 Body Mass Index 23.01 (74.84 kg, 180.34 cm) hb ED Course: 14:19 Patient arrived in ED. mr 14:34 Triage completed. hb 14:34 Arm band placed on. hb 14:40 Phyllis Ortiz, RN is Primary Nurse. aa5 14:50 Pancho Campos MD is Attending Physician. rn 14:50 Patient has correct armband on for positive identification. Placed in gown. Bed in low aa5 position. Call light in reach. Side rails up X 1. 15:10 Initial lab(s) drawn, by me, sent to lab. Inserted saline lock: 20 gauge in right aa5 forearm, using aseptic technique. Blood collected. 15:13 EKG done, by ED staff, reviewed by Pancho Campos MD. 3 15:54 No provider procedures requiring assistance completed. aa5 15:57 CT Head Brain wo Cont In Process Unspecified. EDMS 16:07 CT Abd/Pelvis - IV Contrast Only In Process Unspecified. EDMS 16:07 CT completed. Patient tolerated procedure well. Patient moved back from CT. mw3 17:59 Gracia Armenta MD is Hospitalizing Provider. rn 18:06 Straight cath inserted, using sterile technique, 16 Fr. Specimen obtained. Patient aa5 tolerated well. 200cc of urine returned. 19:40 Patient admitted, IV remains in place. aa5 19:45 Patient admitted, IV remains in place. intact. rr5 Administered Medications: 15:19 Drug: Zofran 4 mg Route: IVP; Site: right forearm; aa5 15:25 Follow up: Response: No adverse reaction aa5 15:19 Drug: NS 0.9% 1000 ml Route: IV; Rate: 1000 ml; Site: right forearm; aa5 Outcome: 18:00 Decision to Hospitalize by Provider. rn 19:45 Admitted to Med/surg accompanied by tech, via stretcher, with chart. rr5 19:45 Condition: stable rr5 19:45 Instructed on the need for admit. 19:49 Patient left the ED. rr5 Signatures: Dispatcher [employer] SCARLETT Dina Darling AndresPancho MD MD rn Calderon, Audri, RN RN aa5 Mychal Nicole RN RN la1 Josie Elkins RN RN hb Herrera, Deanna 3 Edwina Ryan 3 Olivier Kay RN RN rr5 Corrections: (The following items were deleted from the chart) 14:35 14:30 Acuity: BETSY 2 hb hb
--- NOTE | 2019-02-11 18:02 | EDPHYS ---
Physician Documentation [facility] Name: Vel Reynolds Age: 74 yrs Sex: Male : 1945 Arrival Date: 02/11/2019 Time: 14:19 Bed 6 Private MD: ED Physician Pancho Campos HPI: 02/11 16:52 This 74 yrs old Male presents to ER via Wheelchair with complaints of rn Dehydration, nausea/vomiting/diarrhea, hallucinations. 16:52 The patient presents to the emergency department with nausea, vomiting, diarrhea. rn Onset: The symptoms/episode began/occurred 1 week(s) ago. Possible causes: chemotherapy. The symptoms are aggravated by nothing. The symptoms are alleviated by nothing. Severity of symptoms: At their worst the symptoms were moderate in the emergency department the symptoms are unchanged. The patient has not experienced similar symptoms in the past. Reports had to stop oral chemo this week due to uncontrollable vomiting and diarrhea, oral zofran not working at home, treated by Dr. Solomon, + mild abd pain, family states confused, too weak to stand, and hallucinating. . Historical: - Allergies: 14:34 No Known Allergies; hb - Home Meds: 15:20 tamsulosin 0.4 mg oral cp24 1 cap once daily [Active]; ondansetron 4 mg oral TbDL every aa5 4-6 hours [Active]; prednisone 5 mg Oral tab 2 times per day [Active]; Tylenol #3 Oral 1-2 tabs every 4-6 hrs as needed [Active]; simvastatin 20 mg Oral tab 1 tab once daily [Active]; potassium chloride 20 mEq oral TbTQ once daily [Active]; finasteride 5 mg oral tab 1 tab once daily [Active]; metformin 1,000 mg oral tab once a day [Active]; dexamethasone 4 mg oral tab take 2 1/2 tabs at 5PM and 10PM the night before each chemo [Active]; lisinopril-hydrochlorothiazide 20-12.5 mg oral tab once daily [Active]; finasteride 5 mg oral tab 1 tab once daily [Active]; simvastatin 20 mg Oral tab once daily [Active]; - PMHx: 15:20 Throat Cancer; Hyperlipidemia; Hypertension; Diabetes - NIDDM; aa5 18:00 Penile implant; aa5 - Immunization history:: Adult Immunizations up to date. - Social history:: Smoking status: Patient/guardian denies using tobacco. - Ebola Screening: : No symptoms or risks identified at this time. - Family history:: not pertinent. - Hospitalizations: : No recent hospitalization is reported. ROS: 16:52 Constitutional: Negative for fever, chills Eyes: Negative for injury, pain, redness, rn and discharge, Neck: Negative for injury, pain, and swelling, Cardiovascular: Negative for chest pain, palpitations, and edema, Respiratory: Negative for shortness of breath, cough, wheezing, and pleuritic chest pain, Abdomen/GI: Negative for constipation MS/Extremity: Negative for injury and deformity, Skin: Negative for injury, rash, and discoloration, Neuro: Negative for headache, numbness, tingling, and seizure. Exam: 16:52 Constitutional: This is a well developed, well nourished patient who is awake, alert, rn somnolent and slow to respond but answers all questions. Head/Face: Normocephalic, atraumatic. ENT: dry MM Cardiovascular: Regular rate and rhythm, no murmur Respiratory: Lungs have equal breath sounds bilaterally. No increased work of breathing, no retractions or nasal flaring. Abdomen/GI: soft, mild tenderness mid abdomen MS/ Extremity: Pulses equal, no cyanosis. Neurovascular intact. Full, normal range of motion. Equal circumference. Neuro: Awake and alert, GCS 15, oriented to person, place, time, and situation. Cranial nerves II-XII grossly intact. Motor strength 4/5 in all extremities. Sensory grossly intact. Vital Signs: 14:34 BP 108 / 58; Pulse 76; Resp 18; Temp 99.5; Pulse Ox 97% on R/A; Weight 74.84 kg; Height hb 5 ft. 11 in. (180.34 cm); Pain 0/10; 14:50 BP 103 / 60; Pulse 73; Resp 16 S; Pulse Ox 98% on R/A; aa5 15:20 BP 114 / 66; Pulse 72; Resp 16 S; Pulse Ox 98% on R/A; aa5 18:00 BP 141 / 59; Pulse 75; Resp 16 S; Temp 98.8(O); Pulse Ox 97% on R/A; aa5 19:10 BP 138 / 62; Pulse 70; Resp 17; Temp 98.7; Pulse Ox 97% ; rr5 14:34 Body Mass Index 23.01 (74.84 kg, 180.34 cm) hb MDM: 14:50 Patient medically screened. rn 17:57 Differential diagnosis: viral gastroenteritis, gastroenteritis, chemo induced rn vomiting/diarrhea, dehydration, delirium. Data reviewed: vital signs, nurses notes, lab test result(s), radiologic studies, CT scan, and as a result, I will admit patient. Counseling: I had a detailed discussion with the patient and/or guardian regarding: the historical points, exam findings, and any diagnostic results supporting the discharge/admit diagnosis, lab results, radiology results, the need for further work-up and treatment in the hospital. Response to treatment: the patient's symptoms have mildly improved after treatment, and as a result, I will admit patient. Admission orders: after a detailed discussion of the patient's condition and case, the admit orders are written by me. 17:57 ED course: Pt admitted for weakness, unable to stand, dehydration, delirium. Will admit rn to Dr. Armenta.. 02/11 14:59 Order name: CBC with Diff; Complete Time: 16:33 rn 02/11 14:59 Order name: Basic Metabolic Panel; Complete Time: 16:33 rn 02/11 14:59 Order name: Urine Culture 02/11 14:59 Order name: Urine Microscopic Only rn 02/11 18:12 Order name: Urine Dipstick--Ancillary (enter results) ag 02/11 18:46 Order name: Urine Dipstick-Ancillary EDCT 02/11 14:59 Order name: IV Start; Complete Time: 15:12 rn 02/11 14:59 Order name: Urine Dipstick-Ancillary (obtain specimen); Complete Time: 18:06 rn 02/11 14:59 Order name: EKG; Complete Time: 15:01 rn 02/11 15:01 Order name: CT Abd/Pelvis - IV Contrast Only; Complete Time: 16:48 rn 02/11 15:43 Order name: CT Head Brain wo Cont; Complete Time: 16:33 cp 02/11 17:32 Order name: Clear Liquid EDMS 02/11 14:59 Order name: EKG - Nurse/Tech; Complete Time: 15:12 rn 02/11 18:06 Order name: Straight Cath; Complete Time: 18:06 aa5 Administered Medications: 15: Drug: Zofran 4 mg Route: IVP; Site: right forearm; aa5 15:25 Follow up: Response: No adverse reaction 15: Drug: NS 0.9% 1000 ml Route: IV; Rate: 1000 ml; Site: right forearm; aa5 Disposition: 02/11/19 18:00 Hospitalization ordered by Gracia Armenta for Inpatient Admission. Preliminary diagnosis are Dehydration, Weakness, Delirium due to known physiological condition, Failure of outpatient therapy. - Bed requested for Telemetry/MedSurg (Inpatient). - Status is Inpatient Admission. rr5 - Condition is Stable. - Problem is an ongoing problem. - Symptoms have improved. UTI on Admission? No Signatures: Dispatcher [employer] EDPaz Padron RN RN Pancho Campos MD MD rn Calderon, Audri, RN RN aa5 Josie Elkins RN RN Olivier Kay RN RN rr5 Corrections: (The following items were deleted from the chart) 18:26 18:00 Hospitalization Ordered by Gracia Armenta MD for Inpatient Admission. Preliminary dw diagnosis is Dehydration; Weakness; Delirium due to known physiological condition; Failure of outpatient therapy. Bed requested for Telemetry/MedSurg (Inpatient). Status is Inpatient Admission. Condition is Stable. Problem is an ongoing problem. Symptoms have improved. UTI on Admission? No. rn 19:49 18:26 02/11/2019 18:00 Hospitalization Ordered by Gracia Armenta MD for Inpatient rr5 Admission. Preliminary diagnosis is Dehydration; Weakness; Delirium due to known physiological condition; Failure of outpatient therapy. Bed requested for Telemetry/MedSurg (Inpatient). Status is Inpatient Admission. Condition is Stable. Problem is an ongoing problem. Symptoms have improved. UTI on Admission? No. dw
--- NOTE | 2019-02-11 18:08 | P.HP ---
Certification for Inpatient Patient admitted to: Observation With expected LOS: <2 Midnights Patient will require the following post-hospital care: None Practitioner: I am a practitioner with admitting privileges, knowledge of patient current condition, hospital course, and medical plan of care. Services: Services provided to patient in accordance with Admission requirements found in Title 42 Section 412.3 of the Code of Federal Regulations Patient History Date of Service: 02/11/19 Primary Care Provider: Lia staples Reason for admission: Generalized weakness and altered mental status History of Present Illness: This is a 74-year-old male with significant past medical history of throat cancer currently getting chemotherapy status post radiation who presented to the ED complaining of having some generalized weakness altered mental status along with intermittent nausea and vomiting. Patient's family at bedside stated that patient has been acting weird lately and has been forgetting where he lives and would age his kids are. Thus they decided to bring him to the ER. Patient has been recently started with new oral chemotherapy medication about 10 days ago however last he was told that he needs to stop taking his chemotherapy medication due to the fact that he was having a lot of weakness along with diarrhea. Patient's family denied having any fever chills chest pain or shortness of breath at the house. Other than altered mental status, generalized weakness and intermittent nausea vomiting patient does not have any other complaints to offer. Patient-the a local oncologist for his throat cancer. Family stated that he has not had similar symptoms in the past. Recently with poor appetite as well. Has not been able to get out of bed. Does live with his son at home. No other complaints to offer. Allergies No Known Allergies Allergy (Unverified 02/21/18 08:35) Home Medications: Finasteride [Proscar] 5 mg PO DAILY 02/07/18 Lisinopril/Hydrochlorothiazide [Lisinopril-Hctz 20-12.5 mg Tab] 1 each PO DAILY 02/07/18 Metformin HCl [Glucophage] 500 mg PO BIDWM 02/07/18 Pentoxifylline 400 mg PO TID 02/07/18 Simvastatin 20 mg PO BEDTIME 02/07/18 Tamsulosin [Flomax] 0.4 mg PO DAILY 02/07/18 - Past Medical/Surgical History Has patient received pneumonia vaccine in the past: Yes Diabetic: Yes -: Hypertension -: Diabetes -: Hyperlipidemia -: Throat cancer Past Surgical History: Unable to obtain Psychosocial/ Personal History: Lives at home with some - Family History Family History: Reviewed- Non-Contributory - Social History Smoking Status: Current every day smoker Counseled patient to stop smoking for: more than 10 minutes Smoking therapy provided: Yes Patient receptive to therapy: No Alcohol use: No CD- Drugs: No Caffeine use: No Place of Residence: Home Review of Systems 10-point ROS is otherwise unremarkable Physical Examination - Physical Exam General: Alert, Oriented x3, Cooperative, Cachectic, Mild distress, Confused ( Intermittent confusion) Neck: Supple, 2+ carotid pulse no bruit, No LAD, Without JVD or thyroid abnormality Respiratory: Clear to auscultation bilaterally, Normal air movement Cardiovascular: Regular rate/rhythm, Normal S1 S2 Gastrointestinal: Normal bowel sounds, No tenderness Musculoskeletal: No tenderness Integumentary: No rashes Neurological: Normal speech, Normal tone, Abnormal strength, Abnormal affect Lymphatics: No axilla or inguinal lymphadenopathy - Studies Laboratory Data (last 24 hrs) 02/11/19 15:01: Sodium 138, Potassium 3.3 L, BUN 12, Creatinine 0.72, Glucose 100 02/11/19 15:01: WBC 10.1, Hgb 12.3 L, Hct 36.9 L, Plt Count 338 Assessment and Plan - Problems (Diagnosis) (1) Altered mental status Current Visit: Yes Status: Acute Plan: Patient with acute altered mental status with intermittent confusion. Most likely secondary to dehydration versus chronic ischemic changes noted on head CT -currently in the ER alert and oriented x3 but does have intermittent confusion where he forgets how old he is and where he is at -head CT initially negative for any acute abnormality positive for chronic ischemic changes. -will get brain MRI at this time -no brain mets seen on head CT as well. Will continue to monitor patient here closely. Qualifiers: Altered mental status type: disorientation Qualified Code(s): R41.0 - Disorientation, unspecified (2) Generalized weakness Current Visit: Yes Status: Acute Plan: Generalized weakness most likely secondary to her new chemotherapy regimen versus diarrhea -will give PTOT at this time -fall precautions given as well -IV fluids as well -will also get stool studies done in case diarrhea has an infectious etiology. Most likely diary is consistent with radiation related SE (3) Throat cancer Current Visit: Yes Status: Chronic Plan: Patient with history of throat cancer currently being followed by local oncologist Dr. Tobin -patient receiving chemotherapy has completed 3 rounds of chemotherapy also completed radiation. Recently started on PO chemotherapy 10 days ago. Was told to hold it last due to increasing weakness and diarrhea. -will consult oncology is acute worsening of his symptoms (4) Hypertension Current Visit: Yes Status: Chronic Plan: Stable will restart home medication of lisinopril and hydrochlorothiazide Qualifiers: Hypertension type: essential hypertension Qualified Code(s): I10 - Essential (primary) hypertension (5) Hyperlipidemia Current Visit: Yes Status: Chronic Plan: Stable will restart medication for simvastatin Qualifiers: Hyperlipidemia type: mixed hyperlipidemia Qualified Code(s): E78.2 - Mixed hyperlipidemia (6) Diabetes Current Visit: Yes Status: Chronic Plan: Insulin sliding scale and Accu-Cheks q. shift Qualifiers: Diabetes mellitus type: type 2 Diabetes mellitus terminal system operator insulin use: without terminal system operator use Diabetes mellitus complication status: without complication Qualified Code(s): E11.9 - Type 2 diabetes mellitus without complications (7) Dementia Current Visit: Yes Status: Acute Plan: Patient with dementia -head CT consistent with chronic ischemic changes -currently patient is alert and oriented x3 with intermittent confusion noted -will get a brain MRI tomorrow to rule out any other etiology Qualifiers: Dementia type: vascular dementia Dementia behavioral disturbance: without behavioral disturbance Qualified Code(s): F01.50 - Vascular dementia without behavioral disturbance Discharge Plan: Home Plan to discharge in: 48 Hours - Advance Directives Does patient have a Living Will: No Does patient have a Durable POA for Healthcare: No - Code Status/Comfort Care Code Status Assessed: Yes Critical Care: No
[2019-02-11 18:42] LABS: Urine Bacteria <20 /HPF (NONE SEEN); Urine RBC <5 /HPF (NONE SEEN)
[2019-02-11 18:43] LABS: Urine Culture Reflex Order NOT NEEDED
[2019-02-11 18:44] LABS: Urine Blood TRACE (NEG); Urine Glucose NEGATIVE (NEG); Urine Protein NEGATIVE (NEG); Urine Specific Gravity 1.015 (1.005-1.030); Urine pH 7.5 (5.0-7.0)
[2019-02-11] MEDS ORDERED: POTASSIUM CL SA 10 MEQ TAB PO ONE (22:58)
[2019-02-12] MEDS: NA CHLORIDE 0.9% 1,000 ML IV SCH (05:45)
[2019-02-12 06:08] LABS: Absolute Lymphocytes (CBC) 0.9 K/uL (0.7-4.9); Absolute Monocytes 0.8 K/uL (0.1-1.3); Absolute Neutrophil 6.8 K/uL (1.8-8.0); Basophils % 0.4 % (0-1.3); Eosinophils % 2.1 % (0-4.4); Hematocrit 35.9 % (39.6-49.0); Lymphocytes % 9.8 % (15.3-44.8); MPV 7.2 fL (7.6-11.3); Monocytes % 8.8 % (3.3-12.3); RBC Red Blood Cell Count 4.15 M/uL (4.33-5.43)
[2019-02-12 06:24] LABS: ALT/SGPT 34 U/L (12-78); AST/SGOT 31 U/L (15-37); Albumin 2.5 g/dL (3.4-5.0); Alkaline Phosphatase 74 U/L (45-117); BUN Blood Urea Nitrogen 9 mg/dL (7-18); Bicarbonate 26 mmol/L (21-32); Bilirubin Total 0.4 mg/dL (0.2-1.0); Glucose Level 68 mg/dL (74-106); HDL Cholesterol 29 mg/dL (40-60); LDL Cholesterol, Calculated 68 (<130); Magnesium 2.3 mg/dL (1.8-2.4); Phosphorus 2.3 mg/dL (2.5-4.9); Potassium 3.5 mmol/L (3.5-5.1); Protein, Total 5.6 g/dL (6.4-8.2); Sodium Level 142 mmol/L (136-145)
[2019-02-12] MEDS ORDERED: POTASSIUM CL SA 10 MEQ TAB PO ONE (09:00)
[2019-02-12] MEDS: POTASS/SODIUM PHOSPHATE 1 PKT POWD.PACK PO SCH ×3 (09:22→13:12)
[2019-02-12] MEDS: ENOXAPARIN 40 MG/0.4 ML SQ SCH (09:22)
--- NOTE | 2019-02-12 09:24 | RAD REPORT ---
EXAM DESCRIPTION: MRI - Brain Wo Cont - 02/12/2019 7:52 am CLINICAL HISTORY: CVA versus metastatic disease, stroke-like symptoms, weakness COMPARISON: CT head February 11, MRI February 2018 TECHNIQUE: Sagittal T1-weighted images were obtained along with axial PD, heavily T2-weighted and T2 -FLAIR images. Axial DWI and ADC mapping sequences were also obtained along with coronal heavily T2-w eighted images. Several sequences were repeated due to extensive motion. FINDINGS: No intracranial hemorrhage, mass or acute infarction. There is no edema or shift of midlin e structures. No extra-axial fluid collections. Fraire-matter/white matter junction is preserved. Signa l voids are seen as a normal finding in the major intracranial vessels. Atrophy and chronic ischemic changes match the CT study. No globe or orbital content acute finding. Mastoid air cell and paranasal sinus detail limited due to the severity of motion. IMPRESSION: No acute infarction changes are seen. No acute intracranial finding to suggest either me tastatic disease or acute CVA.
--- NOTE | 2019-02-12 09:55 | EKG ---
Test Date: 2019-02-11 Test Time: 15:13:20 Tassel Making Machine Operator: SKINNY MEASUREMENT RESULTS: Intervals: Rate: 71 UT: 146 QRSD: 84 QT: 450 QTc: 489 [place]: P: 56 UT: 146 QRS: 60 T: 68 INTERPRETIVE STATEMENTS: Normal sinus rhythm Septal infarct, age undetermined Abnormal ECG Compared to ECG 11/28/2012 15:54:17 No significant changes Electronically Signed On 02-12-19 09:54:52 CDT by Demarcus Donato
--- NOTE | 2019-02-12 09:55 | EKG ---
Test Date: 2019-02-11 Test Time: 20:28:12 Poultry Scientist: RT-O MEASUREMENT RESULTS: Intervals: Rate: 66 WV: 150 QRSD: 78 QT: 454 QTc: 475 [place]: P: 59 WV: 150 QRS: 60 T: 61 INTERPRETIVE STATEMENTS: Sinus rhythm with occasional premature ventricular complexes Septal infarct, age undetermined Abnormal ECG Compared to ECG 02/11/2019 15:13:20 Ventricular premature complex(es) now present Myocardial infarct finding still present Electronically Signed On 02-12-19 09:54:11 CDT by Demarcus Donato
[2019-02-12 14:52] LABS: Ferritin 303.4 ng/mL (26-388)
[2019-02-12] MEDS: ENSURE ENLIVE 237 ML CAN PO SCH ×2 (14:53→22:48)
[2019-02-12] MEDS: D5 0.45 NS 1,000 ML IV SCH ×2 (14:54→23:04)
--- NOTE | 2019-02-12 15:06 | P.PN ---
Subjective Date of Service: 02/12/19 Primary Care Provider: Lia staples Chief Complaint: Generalized weakness and altered mental status Subjective: Other (Patient appears improved. Patient still feeling weak. Diarrhea improved.) Physical Examination - Vital Signs Temperature: 98.1 F Blood Pressure: 107/54 Pulse: 98 Respirations: 20 Pulse Ox (%): 92 - Physical Exam General: Alert, In no apparent distress, Oriented x3, Cooperative HEENT: Atraumatic Neck: Supple Respiratory: Clear to auscultation bilaterally, Normal air movement Cardiovascular: Normal pulses, Regular rate/rhythm Gastrointestinal: Normal bowel sounds, Soft and benign, Non-distended, No tenderness, No masses, No rebound, No guarding Musculoskeletal: No tenderness, No warmth Integumentary: No tenderness/swelling, No erythema, No warmth, No cyanosis Neurological: Normal speech, Normal strength at 5/5 x4 extr, Normal tone, Normal affect, Other (Dry mucous membranes) - Studies Laboratory Data (last 24 hrs) 02/11/19 15:01: Sodium 138, Potassium 3.3 L, BUN 12, Creatinine 0.72, Glucose 100 02/11/19 15:01: WBC 10.1, Hgb 12.3 L, Hct 36.9 L, Plt Count 338 Assessment & Plan Discharge Plan: Other (Skilled placement facility) Plan to discharge in: 48 Hours Physician Review Additional Text: Impression: Acute encephalopathy likely related to dehydration, diarrhea related to chemotherapy, failure to thrive and complicated with lung cancer Low blood pressure with history of hypertension Diabetes mellitus type 2 with hypoglycemia BPH Malnutrition Anemia of chronic disease with iron and B12 deficiency Chronic steroid use Plan: Acute encephalopathy likely related to dehydration, diarrhea related to chemotherapy, failure to thrive and complicated with lung cancer: Patient no longer confused. MRI shows no acute stroke. Patient with underlying lung cancer currently being treated by oncology. Family reports diarrhea with recent chemotherapy. Medication was discontinued on . Patient has failed to thrive with poor oral intake. Will have dietary assess his nutritional status. Encourage oral intake. Will physical therapy assess ambulation. Patient still too weak to mobilize. Patient would benefit with skilled placement. Will have social media executive look into this matter. Anticipate discharge to skilled placement likely in the next 48 hr. Will continue to reassess. Will also discuss with his oncologist to determine his lung cancer status. Low blood pressure with history of hypertension: Blood pressure low at this time. Will hold his blood pressure medication and monitor closely. May need to make further adjustments in his medication. Diabetes mellitus type 2 with hypoglycemia: Patient with diabetes but hypoglycemia noted. Will hold his medication. Will provide D5 IV fluids due to his poor nutritional intake. Will monitor closely and adjust appropriately. BPH: Restart his medication. Malnutrition: Continue as above. Await dietary recommendations. Provide supplementation. Anemia of chronic disease with iron and B12 deficiency: Will start supplementation. Chronic steroid use: Will restart his steroid medication Time Spent Managing Pts Care (In Minutes): 55
[2019-02-12] MEDS ORDERED: CYANOCOBALAMIN 1000MCG/ML INJ IM ONE (15:18)
--- NOTE | 2019-02-12 18:14 | RAD REPORT ---
EXAM DESCRIPTION: CT - Thorax W/ Con - 02/12/2019 5:42 pm CLINICAL HISTORY: Lung cancer COMPARISON: December 2018 TECHNIQUE: Computed axial tomography of the chest was obtained. 100 cc Isovue 300 was administered i ntravenously. All CT scans are performed using dose optimization technique as appropriate and may include automated exposure control or mA/KV adjustment according to patient size. FINDINGS: No significant change in the left upper lobe opacity measuring 5.6 centimeters. Mild alveo lar opacities left upper lobe. Mild to moderate alveolar opacities have developed within the right upper lobe. Paraseptal and centrilobular emphysema is noted. Mild soft tissue within the aorticopulmonary window is unchanged Small to moderate left and small right pleural effusions have developed. . A pericardial effusion is not seen. IMPRESSION: 5.6 centimeter left upper lobe opacity without significant change. It is difficult to de termine what component of this represents neoplasm versus post treatment change Bilateral upper lobe alveolar opacities probably representing pneumonitis Small to moderate left and small right pleural effusions
[2019-02-12] MEDS: predniSONE 5 MG TAB PO SCH (22:47)
[2019-02-12] MEDS: ATORVASTATIN 10 MG TAB PO SCH (22:47)
[2019-02-13 06:22] LABS: Absolute Lymphocytes (CBC) 0.6 K/uL (0.7-4.9); Absolute Monocytes 0.8 K/uL (0.1-1.3); Absolute Neutrophil 10.2 K/uL (1.8-8.0); Basophils % 0.5 % (0-1.3); Eosinophils % 1.5 % (0-4.4); Hematocrit 37.7 % (39.6-49.0); Lymphocytes % 5.4 % (15.3-44.8); MPV 7.3 fL (7.6-11.3); Monocytes % 6.9 % (3.3-12.3); RBC Red Blood Cell Count 4.37 M/uL (4.33-5.43)
[2019-02-13 06:43] LABS: ALT/SGPT 28 U/L (12-78); AST/SGOT 24 U/L (15-37); Albumin 2.4 g/dL (3.4-5.0); Alkaline Phosphatase 82 U/L (45-117); BUN Blood Urea Nitrogen 6 mg/dL (7-18); Bicarbonate 24 mmol/L (21-32); Bilirubin Total 0.6 mg/dL (0.2-1.0); Glucose Level 158 mg/dL (74-106); Magnesium 2.2 mg/dL (1.8-2.4); Phosphorus 3.4 mg/dL (2.5-4.9); Potassium 3.7 mmol/L (3.5-5.1); Protein, Total 5.7 g/dL (6.4-8.2); Sodium Level 137 mmol/L (136-145)
[2019-02-13] MEDS: FERROUS SULFATE 325 MG TAB PO SCH (07:28)
[2019-02-13] MEDS: ENSURE ENLIVE 237 ML CAN PO SCH ×2 (07:28→14:00)
[2019-02-13] MEDS: predniSONE 5 MG TAB PO SCH ×2 (07:28→20:00)
[2019-02-13] MEDS: FINASTERIDE 5 MG TAB PO SCH (07:29)
[2019-02-13] MEDS: TAMSULOSIN 0.4 MG SR CAP PO SCH (07:29)
[2019-02-13] MEDS: CYANOCOBALAMIN 1,000 MCG TAB PO SCH (07:29)
[2019-02-13] MEDS ORDERED: COSYNTROPIN 0.25 MG VIAL IV SCH (08:00)
[2019-02-13] MEDS: ENOXAPARIN 40 MG/0.4 ML SQ SCH (09:00)
[2019-02-13 09:31] LABS: Blood Morphology Comment NOT SEEN (NOT SEEN); Platelet Estimate ADEQ
[2019-02-13] MEDS: D5 0.45 NS 1,000 ML IV SCH ×2 (10:00→20:01)
[2019-02-13] MEDS ORDERED: POTASSIUM CL SA 10 MEQ TAB PO ONE (11:34)
--- NOTE | 2019-02-13 12:50 | P.PN ---
Subjective Date of Service: 02/13/19 Primary Care Provider: Lia staples Chief Complaint: Generalized weakness and altered mental status Subjective: Other (Patient continues to improve. Blood pressure better stabilize. Blood sugar also better stabilized. Patient appears depressed.) Physical Examination - Vital Signs Temperature: 97.5 F Blood Pressure: 119/58 Pulse: 70 Respirations: 20 Pulse Ox (%): 95 - Physical Exam General: Alert, In no apparent distress, Other (Appears depressed) HEENT: Atraumatic Neck: Supple Respiratory: Clear to auscultation bilaterally, Normal air movement Cardiovascular: Normal pulses, Regular rate/rhythm Gastrointestinal: Normal bowel sounds, Soft and benign, Non-distended Neurological: Abnormal affect (Depressed) - Studies Medications List Reviewed: Yes Assessment & Plan Discharge Plan: Other (custodial facility) Plan to discharge in: 24 Hours Physician Review Additional Text: Impression: Acute encephalopathy likely related to dehydration, diarrhea related to chemotherapy, failure to thrive and complicated with lung cancer Low blood pressure with history of hypertension Diabetes mellitus type 2 with hypoglycemia BPH Malnutrition Anemia of chronic disease with iron and B12 deficiency Chronic steroid use Depression Stage IIIB lung cancer Plan: Acute encephalopathy likely related to dehydration, diarrhea related to chemotherapy, failure to thrive and complicated with lung cancer: Encephalopathy has resolved. Encephalopathy likely related to dehydration and malnutrition. Case discussed with oncology. MRI shows no acute stroke. Continue with nutritional requirements. Encourage ambulation. Patient would benefit with skilled placement. Awaiting placement. Patient appears depressed. Will start medication. Anticipate discharge in the next 24 hr if approved for skilled placement. Low blood pressure with history of hypertension: Blood pressures improved. Home Medication had been discontinued. Will continue to monitor off medication. Diabetes mellitus type 2 with hypoglycemia: Blood sugar improved with oral intake. Patient remains on D5 IV fluids. Home medication has been discontinued. Encourage oral intake. BPH: Continue his medication. Malnutrition: Continue as above. Continue with dietary recommendations. Provide supplementation. Anemia of chronic disease with iron and B12 deficiency: Continue with iron and B12 supplementation. Chronic steroid use: Steroid treatment was started prior to admission. Course all level appears stable. Will discuss with Oncology. Depression: Patient appears depressed. Will start medication-Celexa. Stage IIIB lung cancer: Case discussed at length with oncology. Time Spent Managing Pts Care (In Minutes): 55
[2019-02-13] MEDS: CODEINE 30MG/APAP 300MG TAB PO PRN ×2 (13:06→20:00)
[2019-02-13] MEDS: ATORVASTATIN 10 MG TAB PO SCH (19:59)
[2019-02-13] MEDS: GLUCERNA SHAKE 237 ML CAN PO SCH (20:01)
[2019-02-14] MEDS: D5 0.45 NS 1,000 ML IV SCH (04:00)
[2019-02-14] MEDS: CODEINE 30MG/APAP 300MG TAB PO PRN ×3 (04:01→23:35)
[2019-02-14 06:20] LABS: Absolute Lymphocytes (CBC) 0.8 K/uL (0.7-4.9); Absolute Monocytes 0.9 K/uL (0.1-1.3); Absolute Neutrophil 11.1 K/uL (1.8-8.0); Basophils % 0.3 % (0-1.3); Eosinophils % 1.7 % (0-4.4); Hematocrit 37.5 % (39.6-49.0); Lymphocytes % 6.2 % (15.3-44.8); MPV 7.4 fL (7.6-11.3); Monocytes % 7.1 % (3.3-12.3); RBC Red Blood Cell Count 4.37 M/uL (4.33-5.43)
[2019-02-14 06:21] LABS: ALT/SGPT 40 U/L (12-78); AST/SGOT 34 U/L (15-37); Albumin 2.6 g/dL (3.4-5.0); Alkaline Phosphatase 85 U/L (45-117); BUN Blood Urea Nitrogen 9 mg/dL (7-18); Bicarbonate 23 mmol/L (21-32); Bilirubin Total 0.6 mg/dL (0.2-1.0); Glucose Level 170 mg/dL (74-106); Magnesium 2.3 mg/dL (1.8-2.4); Potassium 3.8 mmol/L (3.5-5.1); Sodium Level 137 mmol/L (136-145)
[2019-02-14] MEDS: GLUCERNA SHAKE 237 ML CAN PO SCH ×2 (09:00→20:12)
[2019-02-14] MEDS ORDERED: POTASSIUM CL SA 10 MEQ TAB PO ONE (09:00)
[2019-02-14] MEDS: ENOXAPARIN 40 MG/0.4 ML SQ SCH (09:00)
[2019-02-14] MEDS: CYANOCOBALAMIN 1,000 MCG TAB PO SCH (09:30)
[2019-02-14] MEDS: FERROUS SULFATE 325 MG TAB PO SCH (09:30)
[2019-02-14] MEDS: CITALOPRAM 10 MG TABLET PO SCH (09:30)
[2019-02-14] MEDS: TAMSULOSIN 0.4 MG SR CAP PO SCH (09:30)
[2019-02-14] MEDS: predniSONE 5 MG TAB PO SCH ×2 (09:31→20:12)
[2019-02-14] MEDS: FINASTERIDE 5 MG TAB PO SCH (09:31)
--- NOTE | 2019-02-14 12:59 | P.PN ---
Subjective Date of Service: 02/14/19 Primary Care Provider: Lia staples Chief Complaint: Generalized weakness and altered mental status Subjective: Doing well (Patient doing well and improving.) Physical Examination - Vital Signs Temperature: 98.6 F Blood Pressure: 118/58 Pulse: 73 Respirations: 16 Pulse Ox (%): 97 - Physical Exam General: Alert, In no apparent distress, Oriented x3, Cooperative HEENT: Atraumatic Neck: Supple Respiratory: Clear to auscultation bilaterally, Normal air movement Cardiovascular: Normal pulses, Regular rate/rhythm Gastrointestinal: Normal bowel sounds, Soft and benign, Non-distended, No tenderness, No masses, No rebound, No guarding Neurological: Normal speech, Normal strength at 5/5 x4 extr, Normal tone, Normal affect - Studies Microbiology Data (last 24 hrs): 02/11/19 18:00 Clean Catch Urine [place] Count - Final <10,000 CFU/ML. 02/11/19 18:00 Clean Catch Urine - Final Medications List Reviewed: Yes Assessment & Plan Discharge Plan: Other ([facility] facility) Plan to discharge in: 24 Hours Physician Review Additional Text: Impression: Acute encephalopathy likely related to dehydration, diarrhea related to chemotherapy, failure to thrive and complicated with lung cancer Low blood pressure with history of hypertension Diabetes mellitus type 2 with hypoglycemia BPH Malnutrition Anemia of chronic disease with iron and B12 deficiency Chronic steroid use Depression Stage IIIB lung cancer Plan: Acute encephalopathy likely related to dehydration, diarrhea related to chemotherapy, failure to thrive and complicated with lung cancer: Encephalopathy has resolved. Encephalopathy likely related to dehydration and malnutrition. Patient has done well. Patient in better spirit and eating improved. Case discussed with oncology yesterday. Awaiting transfer to skilled facility placement for rehab. Oncology plans to hold off on chemotherapy/chemotherapy at this time for his lung cancer. After rehab patient can be reassess for possible continue treatment. Patient agreeable with plan of care. Await acceptance to skilled facility. Low blood pressure with history of hypertension: Blood pressures stable off home medication. Patient may not require restart of home medication. Will continue to monitor off medication. Diabetes mellitus type 2 with hypoglycemia: Blood sugar improved with oral intake. Will discontinue IV fluids and monitor closely. Encourage oral intake. Home medication have been held. Patient may not require medication at discharge. BPH: Continue his medication. Malnutrition: Continue as above. Continue with dietary recommendations. Continue with supplementation. Anemia of chronic disease with iron and B12 deficiency: Continue with iron and B12 supplementation. Chronic steroid use: Steroid treatment was started prior to admission. Case discussed with oncology. Oncology recommends to continue steroid treatment. This will be tapered off as an outpatient. Depression: Patient appears depressed. Today with better spirit. Celexa started yesterday. Will continue with medication. Stage IIIB lung cancer: Case discussed at length with oncology. Oncology plans to hold off on treatment at this time until he physically improves after skilled facility. After rehab patient will be reassessed for possible restart of medication. Time Spent Managing Pts Care (In Minutes): 55
[2019-02-14] MEDS: ATORVASTATIN 10 MG TAB PO SCH (20:12)
[2019-02-15 05:57] LABS: BUN Blood Urea Nitrogen 10 mg/dL (7-18); Bicarbonate 26 mmol/L (21-32); Glucose Level 153 mg/dL (74-106); Magnesium 2.2 mg/dL (1.8-2.4); Potassium 3.9 mmol/L (3.5-5.1); Sodium Level 139 mmol/L (136-145)
[2019-02-15 06:07] LABS: Absolute Lymphocytes (CBC) 0.8 K/uL (0.7-4.9); Absolute Monocytes 0.9 K/uL (0.1-1.3); Basophils % 0.4 % (0-1.3); Eosinophils % 2.1 % (0-4.4); Hematocrit 36.4 % (39.6-49.0); Lymphocytes % 7.3 % (15.3-44.8); MPV 7.3 fL (7.6-11.3); Monocytes % 8.3 % (3.3-12.3); RBC Red Blood Cell Count 4.23 M/uL (4.33-5.43)
[2019-02-15] MEDS: ENOXAPARIN 40 MG/0.4 ML SQ SCH (09:00)
[2019-02-15] MEDS ORDERED: POTASSIUM CL SA 10 MEQ TAB PO ONE (09:00)
[2019-02-15] MEDS: GLUCERNA SHAKE 237 ML CAN PO SCH ×2 (09:00→20:49)
[2019-02-15] MEDS: CITALOPRAM 10 MG TABLET PO SCH (09:16)
[2019-02-15] MEDS: FERROUS SULFATE 325 MG TAB PO SCH (09:16)
[2019-02-15] MEDS: predniSONE 5 MG TAB PO SCH ×2 (09:17→20:49)
[2019-02-15] MEDS: CYANOCOBALAMIN 1,000 MCG TAB PO SCH (09:17)
[2019-02-15] MEDS: FINASTERIDE 5 MG TAB PO SCH (09:17)
[2019-02-15] MEDS: TAMSULOSIN 0.4 MG SR CAP PO SCH (09:17)
--- NOTE | 2019-02-15 10:15 | P.PN ---
Subjective Date of Service: 02/15/19 Primary Care Provider: Lia staples Chief Complaint: Generalized weakness and altered mental status Subjective: Improving, Doing well Physical Examination - Vital Signs Temperature: 97.5 F Blood Pressure: 129/60 Pulse: 90 Respirations: 18 Pulse Ox (%): 98 - Physical Exam General: Alert, In no apparent distress, Oriented x3, Cooperative HEENT: Atraumatic Neck: Supple Respiratory: Clear to auscultation bilaterally, Normal air movement Cardiovascular: Normal pulses, Regular rate/rhythm Gastrointestinal: Normal bowel sounds, Soft and benign, Non-distended Neurological: Normal speech, Normal strength at 5/5 x4 extr, Normal tone, Normal affect - Studies Microbiology Data (last 24 hrs): 02/11/19 18:00 Clean Catch Urine [place] Count - Final <10,000 CFU/ML. 02/11/19 18:00 Clean Catch Urine - Final Medications List Reviewed: Yes Assessment & Plan Discharge Plan: Other (half-way facility) Plan to discharge in: 24 Hours Physician Review Additional Text: Impression: Acute metabolic encephalopathy likely related to dehydration, diarrhea related to chemotherapy, failure to thrive and complicated with lung cancer Low blood pressure with history of hypertension Diabetes mellitus type 2 with hypoglycemia BPH Malnutrition Anemia of chronic disease with iron and B12 deficiency Chronic steroid use Depression Stage IIIB lung cancer Plan: Acute metabolic encephalopathy likely related to dehydration, diarrhea related to chemotherapy, failure to thrive and complicated with lung cancer: Patient doing well this time. Awaiting long-term facility placement approval. Oncology plans to hold off on chemotherapy/chemotherapy at this time for his lung cancer. After rehab patient can be reassess for possible continue treatment. Patient agreeable with plan of care. Await acceptance to skilled facility. Low blood pressure with history of hypertension: Blood pressures continues to remain stable off home medication. Patient may not require restart of home medication. Will continue to monitor off medication. Diabetes mellitus type 2 with hypoglycemia: Blood sugar improved with oral intake. Blood sugar remained stable off Home medication. Patient may not require medication at discharge. BPH: Continue his medication. Malnutrition: Continue as above. Continue with dietary recommendations. Continue with supplementation. Anemia of chronic disease with iron and B12 deficiency: Continue with iron and B12 supplementation. Chronic steroid use: Steroid treatment was started prior to admission. Case discussed with oncology. Oncology recommends to continue steroid treatment. This will be tapered off as an outpatient. Depression: Today with better spirits. Continue antidepressant medication. Stage IIIB lung cancer: Case discussed at length with oncology. Oncology plans to hold off on treatment at this time until he physically improves after skilled facility. After rehab patient will be reassessed for possible restart of medication. Time Spent Managing Pts Care (In Minutes): 55
[2019-02-15] MEDS: CODEINE 30MG/APAP 300MG TAB PO PRN (18:07)
[2019-02-15] MEDS: ATORVASTATIN 10 MG TAB PO SCH (20:49)
[2019-02-16] MEDS: CODEINE 30MG/APAP 300MG TAB PO PRN ×3 (04:06→23:49)
[2019-02-16 05:45] LABS: BUN Blood Urea Nitrogen 12 mg/dL (7-18); Bicarbonate 27 mmol/L (21-32); Glucose Level 140 mg/dL (74-106); Potassium 4.2 mmol/L (3.5-5.1); Sodium Level 137 mmol/L (136-145)
--- NOTE | 2019-02-16 08:37 | P.PN ---
Subjective Date of Service: 02/16/19 Primary Care Provider: Lia staples Chief Complaint: Generalized weakness and altered mental status Subjective: Doing well Physical Examination - Vital Signs Temperature: 97.8 F Blood Pressure: 130/58 Pulse: 82 Respirations: 16 Pulse Ox (%): 96 - Physical Exam General: Alert, In no apparent distress, Oriented x3, Cooperative HEENT: Atraumatic Neck: Supple Respiratory: Clear to auscultation bilaterally, Normal air movement Cardiovascular: Normal pulses, Regular rate/rhythm Gastrointestinal: Normal bowel sounds, Soft and benign, Non-distended, No tenderness, No masses, No rebound, No guarding Musculoskeletal: No erythema, No tenderness, No warmth Neurological: Normal speech, Normal strength at 5/5 x4 extr, Normal tone - Studies Medications List Reviewed: Yes Assessment & Plan Discharge Plan: Other (correction facility) Plan to discharge in: 24 Hours Physician Review Additional Text: Impression: Acute metabolic encephalopathy likely related to dehydration, diarrhea related to chemotherapy, failure to thrive and complicated with lung cancer Low blood pressure with history of hypertension Diabetes mellitus type 2 with hypoglycemia BPH Malnutrition Anemia of chronic disease with iron and B12 deficiency Chronic steroid use Depression Stage IIIB lung cancer Plan: Acute metabolic encephalopathy likely related to dehydration, diarrhea related to chemotherapy, failure to thrive and complicated with lung cancer: Patient doing well this time. Patient doing well with physical therapy. [facility]. Oncology plans to hold off on chemotherapy/chemotherapy at this time for his lung cancer. After rehab patient can be reassessed for possible continued cancer treatment. Patient agreeable with plan of care. Await acceptance to skilled facility. Anticipate approval to skilled therapy today. If the patient remains here through the weekend, I will turn the service over to Dr. Cabrera tomorrow. I will go over the plan of care with her. Low blood pressure with history of hypertension: Blood pressures continues to remain stable off home medication. Patient may not require restart of home medication at discharge. Will continue to monitor off medication. Diabetes mellitus type 2 with hypoglycemia: Blood sugar improved with oral intake. Blood sugar remains stable off Home medication. Patient may not require medication at discharge. BPH: Continue his medication. Malnutrition: Continue as above. Continue with dietary recommendations. Continue with supplementation. Anemia of chronic disease with iron and B12 deficiency: Continue with iron and B12 supplementation. Chronic steroid use: Steroid treatment was started prior to admission. Case discussed with oncology. Oncology recommends to continue steroid treatment. This will be tapered off as an outpatient. Depression: Continue antidepressant medication. Stage IIIB lung cancer: Case discussed at length with oncology. Oncology plans to hold off on treatment at this time until he physically improves after skilled facility. After rehab patient will be reassessed for possible restart of medication. Time Spent Managing Pts Care (In Minutes): 55
[2019-02-16] MEDS: CYANOCOBALAMIN 1,000 MCG TAB PO SCH (09:00)
[2019-02-16] MEDS: CITALOPRAM 10 MG TABLET PO SCH (09:46)
[2019-02-16] MEDS: TAMSULOSIN 0.4 MG SR CAP PO SCH (09:46)
[2019-02-16] MEDS: predniSONE 5 MG TAB PO SCH ×2 (09:46→21:05)
[2019-02-16] MEDS: FINASTERIDE 5 MG TAB PO SCH (09:46)
[2019-02-16] MEDS: ENOXAPARIN 40 MG/0.4 ML SQ SCH (09:46)
[2019-02-16] MEDS: FERROUS SULFATE 325 MG TAB PO SCH (09:47)
[2019-02-16] MEDS: GLUCERNA SHAKE 237 ML CAN PO SCH ×2 (09:48→21:00)
[2019-02-16] MEDS: ATORVASTATIN 10 MG TAB PO SCH (21:05)
[2019-02-17] MEDS: GLUCERNA SHAKE 237 ML CAN PO SCH ×2 (09:00→21:00)
[2019-02-17] MEDS: ENOXAPARIN 40 MG/0.4 ML SQ SCH (09:23)
[2019-02-17] MEDS: CITALOPRAM 10 MG TABLET PO SCH (09:27)
[2019-02-17] MEDS: TAMSULOSIN 0.4 MG SR CAP PO SCH (09:28)
[2019-02-17] MEDS: CYANOCOBALAMIN 1,000 MCG TAB PO SCH (09:28)
[2019-02-17] MEDS: FERROUS SULFATE 325 MG TAB PO SCH (09:28)
[2019-02-17] MEDS: FINASTERIDE 5 MG TAB PO SCH (09:28)
[2019-02-17] MEDS: predniSONE 5 MG TAB PO SCH ×2 (09:28→20:42)
--- NOTE | 2019-02-17 13:00 | P.PN ---
Subjective Date of Service: 02/17/19 Primary Care Provider: Lia staples Chief Complaint: Generalized weakness and altered mental status Subjective: No new changes pt seen and examined no change in clinical status pt denied any CP or SOB discharge plannig pending placement Physical Examination - Vital Signs Temperature: 97.5 F Blood Pressure: 119/65 Pulse: 80 Respirations: 20 Pulse Ox (%): 96 - Studies Medications List Reviewed: Yes Assessment And Plan - Current Problems (Diagnosis) (1) Malnutrition Current Visit: Yes Status: Chronic (2) Depression Current Visit: Yes Status: Chronic (3) Anemia Current Visit: Yes Status: Chronic (4) Altered mental status Current Visit: Yes Status: Acute Qualifiers: Altered mental status type: disorientation Qualified Code(s): R41.0 - Disorientation, unspecified (5) Generalized weakness Current Visit: Yes Status: Acute (6) Diabetes Current Visit: Yes Status: Chronic Qualifiers: Diabetes mellitus type: type 2 Diabetes mellitus buttermaker insulin use: without buttermaker use Diabetes mellitus complication status: without complication Qualified Code(s): E11.9 - Type 2 diabetes mellitus without complications (7) Hyperlipidemia Current Visit: Yes Status: Chronic Qualifiers: Hyperlipidemia type: mixed hyperlipidemia Qualified Code(s): E78.2 - Mixed hyperlipidemia (8) Hypertension Current Visit: No Status: Chronic Qualifiers: Hypertension type: essential hypertension Qualified Code(s): I10 - Essential (primary) hypertension - Plan Assessment/plan: acute metabolic encephalopathy lung cancer michael IIIB diarrhea due to chemotherpay-resolved DM type 2-BS remains in control off meds anemia of ch disease FFT and malnutrition depression plan: continue supportive care PT/OT hold antihypertensive meds for now encourage oral intake po supplement glucerna continue ferrous sulfate hold off for chemotherapy for now as per oncology ,continue steroid treatment and taper as op dc plan pending placement Discharge Plan: [facility] Plan to discharge in: 24 Hours
[2019-02-17] MEDS ORDERED: D50W 25 GM/50 ML SYRINGE IV PRN (16:36)
[2019-02-17] MEDS ORDERED: GLUCAGON 1 MG/VIAL IM PRN (16:36)
[2019-02-17] MEDS: ATORVASTATIN 10 MG TAB PO SCH (20:40)
[2019-02-17] MEDS: INSULIN -REGULAR HUMAN 50 UNIT/0.5 ML ML SQ SCH (20:43)
[2019-02-18] MEDS: CODEINE 30MG/APAP 300MG TAB PO PRN (00:22)
[2019-02-18] MEDS: INSULIN -REGULAR HUMAN 50 UNIT/0.5 ML ML SQ SCH ×4 (07:30→22:39)
[2019-02-18] MEDS: GLUCERNA SHAKE 237 ML CAN PO SCH ×2 (09:00→21:00)
[2019-02-18] MEDS: ENOXAPARIN 40 MG/0.4 ML SQ SCH (09:41)
[2019-02-18] MEDS: FINASTERIDE 5 MG TAB PO SCH (09:42)
[2019-02-18] MEDS: predniSONE 5 MG TAB PO SCH ×2 (09:42→22:39)
[2019-02-18] MEDS: FERROUS SULFATE 325 MG TAB PO SCH (09:42)
[2019-02-18] MEDS: CITALOPRAM 10 MG TABLET PO SCH (09:42)
[2019-02-18] MEDS: TAMSULOSIN 0.4 MG SR CAP PO SCH (09:43)
[2019-02-18] MEDS: CYANOCOBALAMIN 1,000 MCG TAB PO SCH (09:43)
--- NOTE | 2019-02-18 12:00 | P.PN ---
Subjective Date of Service: 02/18/19 Primary Care Provider: [facility] Chief Complaint: Generalized weakness and altered mental status pt seen and examined no change in clinical status pt denied any CP or SOB discharge plannig pending placement Review of Systems 10-point ROS is otherwise unremarkable Physical Examination - Vital Signs Temperature: 98.2 F Blood Pressure: 121/63 Pulse: 79 Respirations: 16 Pulse Ox (%): 97 - Physical Exam General: Alert, In no apparent distress, Oriented x3 HEENT: Atraumatic, Normocephalic, PERRLA Neck: Supple, JVD not distended Respiratory: Clear to auscultation bilaterally, Normal air movement Cardiovascular: No edema, Regular rate/rhythm, Normal S1 S2 Gastrointestinal: Normal bowel sounds, Soft and benign Musculoskeletal: No clubbing, No swelling, No erythema Integumentary: No rashes Neurological: Normal speech, Normal strength at 5/5 x4 extr - Studies Medications List Reviewed: Yes Assessment And Plan - Current Problems (Diagnosis) (1) Malnutrition Current Visit: Yes Status: Chronic (2) Depression Current Visit: Yes Status: Chronic (3) Anemia Current Visit: Yes Status: Chronic (4) Altered mental status Current Visit: Yes Status: Acute Qualifiers: Altered mental status type: disorientation Qualified Code(s): R41.0 - Disorientation, unspecified (5) Generalized weakness Current Visit: Yes Status: Acute (6) Diabetes Current Visit: Yes Status: Chronic Qualifiers: Diabetes mellitus type: type 2 Diabetes mellitus prison insulin use: without terminal gauger supervisor use Diabetes mellitus complication status: without complication Qualified Code(s): E11.9 - Type 2 diabetes mellitus without complications (7) Hyperlipidemia Current Visit: Yes Status: Chronic Qualifiers: Hyperlipidemia type: mixed hyperlipidemia Qualified Code(s): E78.2 - Mixed hyperlipidemia (8) Hypertension Current Visit: No Status: Chronic Qualifiers: Hypertension type: essential hypertension Qualified Code(s): I10 - Essential (primary) hypertension - Plan Assessment/plan: acute metabolic encephalopathy lung cancer michael IIIB diarrhea due to chemotherpay-resolved DM type 2-BS remains in control off meds anemia of ch disease FFT and malnutrition depression plan: continue supportive care PT/OT hold antihypertensive meds for now encourage oral intake po supplement glucerna continue ferrous sulfate hold off for chemotherapy for now as per oncology ,continue steroid treatment and taper as op dc plan pending placement Physician Review Additional Text: Impression: Acute metabolic encephalopathy likely related to dehydration, diarrhea related to chemotherapy, failure to thrive and complicated with lung cancer Low blood pressure with history of hypertension Diabetes mellitus type 2 with hypoglycemia BPH Malnutrition Anemia of chronic disease with iron and B12 deficiency Chronic steroid use Depression Stage IIIB lung cancer Plan: Acute metabolic encephalopathy likely related to dehydration, diarrhea related to chemotherapy, failure to thrive and complicated with lung cancer: Patient doing well this time. Patient doing well with physical therapy. Awaiting intermediate facility placement approval. Oncology plans to hold off on chemotherapy/chemotherapy at this time for his lung cancer. After rehab patient can be reassessed for possible continued cancer treatment. Patient agreeable with plan of care. Await acceptance to skilled facility. Anticipate approval to skilled therapy today. If the patient remains here through the weekend, I will turn the service over to Dr. Cabrera tomorrow. I will go over the plan of care with her. Low blood pressure with history of hypertension: Blood pressures continues to remain stable off home medication. Patient may not require restart of home medication at discharge. Will continue to monitor off medication. Diabetes mellitus type 2 with hypoglycemia: Blood sugar improved with oral intake. Blood sugar remains stable off Home medication. Patient may not require medication at discharge. BPH: Continue his medication. Malnutrition: Continue as above. Continue with dietary recommendations. Continue with supplementation. Anemia of chronic disease with iron and B12 deficiency: Continue with iron and B12 supplementation. Chronic steroid use: Steroid treatment was started prior to admission. Case discussed with oncology. Oncology recommends to continue steroid treatment. This will be tapered off as an outpatient. Depression: Continue antidepressant medication. Stage IIIB lung cancer: Case discussed at length with oncology. Oncology plans to hold off on treatment at this time until he physically improves after skilled facility. After rehab patient will be reassessed for possible restart of medication.
[2019-02-18] MEDS: ATORVASTATIN 10 MG TAB PO SCH (22:39)
[2019-02-18] MEDS ORDERED: ACETAMINOPHEN 500 MG TAB PO PRN (23:59)
[2019-02-19 00:44] LABS: Urine Appearance CLEAR; Urine Bilirubin NEGATIVE (NEG); Urine Blood NEGATIVE (NEG); Urine Color YELLOW; Urine Glucose NEGATIVE (NEG); Urine Protein NEGATIVE (NEG); Urine Specific Gravity 1.015 (1.005-1.030)
[2019-02-19 00:52] LABS: Urine Microscopic Reflex NO UMIC
[2019-02-19] MEDS: INSULIN -REGULAR HUMAN 50 UNIT/0.5 ML ML SQ SCH ×3 (07:30→16:30)
--- NOTE | 2019-02-19 08:08 | RAD REPORT ---
EXAM DESCRIPTION: [place] Single View02/19/2019 12:14 am CLINICAL HISTORY: Fever COMPARISON: February 12 CAT scan FINDINGS: Left upper lobe opacity without obvious change. Left basilar opacity has mostly resolved. Small bilateral pleural effusions Mild right lung opacities are unchanged. Heart is normal size
[2019-02-19] MEDS: GLUCERNA SHAKE 237 ML CAN PO SCH (11:06)
[2019-02-19] MEDS: TAMSULOSIN 0.4 MG SR CAP PO SCH (11:07)
[2019-02-19] MEDS: CYANOCOBALAMIN 1,000 MCG TAB PO SCH (11:07)
[2019-02-19] MEDS: ENOXAPARIN 40 MG/0.4 ML SQ SCH (11:07)
[2019-02-19] MEDS: CITALOPRAM 10 MG TABLET PO SCH (11:07)
[2019-02-19] MEDS: FERROUS SULFATE 325 MG TAB PO SCH (11:07)
[2019-02-19] MEDS: predniSONE 5 MG TAB PO SCH (11:07)
[2019-02-19] MEDS: FINASTERIDE 5 MG TAB PO SCH (11:07)
--- NOTE | 2019-02-19 14:57 | P.DS ---
Admission Date: 02/12/19 Discharge Date: 02/19/19 Primary Care Provider: [facility] Reason for Admission: Generalized weakness and altered mental status Consultations: PTOT Oncology - Problems (1) Altered mental status Current Visit: Yes Status: Resolved Qualifiers: Altered mental status type: disorientation Qualified Code(s): R41.0 - Disorientation, unspecified (2) Generalized weakness Current Visit: Yes Status: Resolved (3) Throat cancer Current Visit: Yes Status: Chronic (4) Hypertension Current Visit: No Status: Chronic Qualifiers: Hypertension type: essential hypertension Qualified Code(s): I10 - Essential (primary) hypertension (5) Hyperlipidemia Current Visit: Yes Status: Chronic Qualifiers: Hyperlipidemia type: mixed hyperlipidemia Qualified Code(s): E78.2 - Mixed hyperlipidemia (6) Diabetes Current Visit: Yes Status: Chronic Qualifiers: Diabetes mellitus type: type 2 Diabetes mellitus gag writer insulin use: without nursing home use Diabetes mellitus complication status: without complication Qualified Code(s): E11.9 - Type 2 diabetes mellitus without complications (7) Dementia Current Visit: Yes Status: Acute Qualifiers: Dementia type: vascular dementia Dementia behavioral disturbance: without behavioral disturbance Qualified Code(s): F01.50 - Vascular dementia without behavioral disturbance Brief History of Present Illness: This is a 74-year-old male with significant past medical history of throat cancer currently getting chemotherapy status post radiation who presented to the ED complaining of having some generalized weakness altered mental status along with intermittent nausea and vomiting. Patient's family at bedside stated that patient has been acting weird lately and has been forgetting where he lives and would age his kids are. Thus they decided to bring him to the ER. Patient has been recently started with new oral chemotherapy medication about 10 days ago however last he was told that he needs to stop taking his chemotherapy medication due to the fact that he was having a lot of weakness along with diarrhea. Patient's family denied having any fever chills chest pain or shortness of breath at the house. Other than altered mental status, generalized weakness and intermittent nausea vomiting patient does not have any other complaints to offer. Patient-the a local oncologist for his throat cancer. Family stated that he has not had similar symptoms in the past. Recently with poor appetite as well. Has not been able to get out of bed. Does live with his son at home. No other complaints to offer. Hospital Course: Overall during the hospital stay patient remained stable Patient was initially admitted to the hospital for acute metabolic encephalopathy and generalized weakness most likely secondary to dehydration secondary to diarrheal episode from chronic radiation and chemotherapy. Patient was admitted here in the hospital medical-surgical floor was kept on IV fluids here in the hospital for dehydration. Dehydration did improve markedly. Patient's metabolic encephalopathy also resolved with patient having alert and oriented x3. Patient does have underlying dementia and his baseline is intermittent confusion. Patient was back to his baseline here in the hospital after IV fluids and close monitor. Patient also had physical therapy consulted on the case who recommended the patient be transferred to [facility] facility for PT OT. Patient was accepted the [facility] and thus was transferred there for further care. Patient was also seen here by oncology with no acute further recommendations. Chemotherapy is going to be on hold for his stage III lung cancer. Overall patient was doing well was working with physical therapy and once accepted at [facility] was transferred there for further care. Vital Signs/Physical Exam: Temp Pulse Resp BP Pulse Ox 97.6 F 78 18 105/53 L 96 02/19/19 12:00 02/19/19 12:00 02/19/19 12:00 02/19/19 12:00 02/19/19 12:00 General: Alert, In no apparent distress HEENT: Atraumatic, PERRLA, EOMI Neck: Supple, JVD not distended Respiratory: Clear to auscultation bilaterally, Normal air movement Cardiovascular: Regular rate/rhythm, Normal S1 S2 Gastrointestinal: Normal bowel sounds, No tenderness Musculoskeletal: No tenderness Integumentary: No rashes Neurological: Normal speech, Normal tone, Normal affect Lymphatics: No axilla or inguinal lymphadenopathy Laboratory Data at Discharge: WBC 11.0 K/uL (4.3-10.9) H D 02/15/19 05:28 Hgb 12.3 g/dL (13.6-17.9) L 02/15/19 05:28 Hct 36.4 % (39.6-49.0) L 02/15/19 05:28 Plt Count 356 K/uL (152-406) 02/15/19 05:28 Sodium 137 mmol/L (136-145) 02/16/19 05:11 Potassium 4.2 mmol/L (3.5-5.1) 02/16/19 05:11 BUN 12 mg/dL (7-18) 02/16/19 05:11 Creatinine 0.66 mg/dL (0.55-1.3) 02/16/19 05:11 Glucose 140 mg/dL (74-106) H 02/16/19 05:11 Phosphorus 3.4 mg/dL (2.5-4.9) 02/13/19 05:31 Magnesium 2.2 mg/dL (1.8-2.4) 02/15/19 05:28 Total Bilirubin 0.6 mg/dL (0.2-1.0) 02/14/19 05:26 AST 34 U/L (15-37) 02/14/19 05:26 ALT 40 U/L (12-78) 02/14/19 05:26 Alkaline Phosphatase 85 U/L (45-117) 02/14/19 05:26 Triglycerides 155 mg/dL (<150) H 02/12/19 05:23 Cholesterol 128 mg/dL (<200) 02/12/19 05:23 HDL Cholesterol 29 mg/dL (40-60) L 02/12/19 05:23 Cholesterol/HDL Ratio 4.41 02/12/19 05:23 Home Medications: Finasteride [Proscar] 5 mg PO DAILY 02/07/18 Lisinopril/Hydrochlorothiazide [Lisinopril-Hctz 20-12.5 mg Tab] 1 each PO DAILY 02/07/18 Metformin HCl [Glucophage] 1,000 mg PO DAILY 02/07/18 Simvastatin 20 mg PO BEDTIME 02/07/18 Tamsulosin [Flomax] 0.4 mg PO DAILY 02/07/18 Acetaminophen with Codeine [Acetaminophen-Cod #3 Tablet] 1 tab PO SEECOM PRN 05/24 Dexamethasone 2.5 tab PO SEECOM 02/11/19 Ondansetron [Ondansetron Odt] 1 tab PO SEECOM PRN 02/11/19 Potassium Chloride 1 tab PO DAILY 02/11/19 predniSONE [Prednisone] 1 tab PO BID 02/11/19
[2019-02-19] MEDS ORDERED: DOCUSATE NA 100 MG CAP PO SCH (21:00)
== END 2019-02-19 19:36 | DRG 71 ==
LOC: ER 14:17 → ERHOLD 17:30 → OBSVTOIN 17:30 → INTOOBSV 17:30 → 2ND 19:32 → OBSVTOIN 02-12 15:07
PROVIDERS: ADMIT Family Medicine; ATTEND Family Medicine
DX: G93.41 Metabolic encephalopathy (principal); K52.1 Toxic gastroenteritis and colitis; C34.90 Malignant neoplasm of unspecified part of unspecified bronchus or lung; E46 Unspecified protein-calorie malnutrition; E86.0 Dehydration; T45.1X5A Adverse effect of antineoplastic and immunosuppressive drugs, initial encounter; Y92.89 Other specified places as the place of occurrence of the external cause; Z68.23 Body mass index [BMI] 23.0-23.9, adult; E11.649 Type 2 diabetes mellitus with hypoglycemia without coma; N40.0 Benign prostatic hyperplasia without lower urinary tract symptoms; D64.9 Anemia, unspecified; D51.9 Vitamin B12 deficiency anemia, unspecified; Z79.52 Long term (current) use of systemic steroids; F32.9 Major depressive disorder, single episode, unspecified; I95.9 Hypotension, unspecified; F01.50 Vascular dementia, unspecified severity, without behavioral disturbance, psychotic disturbance, mood disturbance, and anxiety; E78.2 Mixed hyperlipidemia; R62.7 Adult failure to thrive
CPT/HCPCS: 36415; 51702; 70450; 70551; 71045; 71260; 74177; 80048; 80053; 80061; 81003; 81015; 82024; 82533; 82607; 82728; 82962; 83540; 83605; 83735; 84100; 84439; 84443; 84466; 85025; 87040; 87086; 87088; 93005; 96374; 97116; 97163; 97530; 99285; G0378; J0834; J1650; J2405; J3420; J7030; J7512; Q9967

== ENCOUNTER 2019-05-11 17:48 | Inpatient (IN) | payer OTHER ==
--- OUTSIDE RECORDS SUMMARY | 2019-05-11 17:51 | XMS REPORT | Clinical Summary ---
:1945 Author Organization [facility] Address [address] [place] [address] Care Team Providers Name Role Phone Asked, [...] meals. Active Problems No known active problems Family History Medical History Relation Name Comments Diabetes Father Congenital heart disease Mother Diabetes Mother Relation Name Status Comments Father Mother Social History Tobacco Use Types Packs/Day Years Used Date Former Smoker Cigarettes 1 30 Quit: 03/02/2018 Smokeless Tobacco: Never Used Comments: quit for 6 year in 1995 Alcohol Use Drinks/Week oz/Week Comments Yes 6 Cans of beer 6.0 Sex Assigned at Date Recorded Not on file Job Start Date Occupation Industry Not on file Not on file Not on file Travel History Travel Start Travel End No recent travel history available. 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
[2019-05-11] MEDS ORDERED: NA CHLORIDE 0.9% 1,000 ML ONE ×2 (19:28→20:27)
[2019-05-11] MEDS ORDERED: ONDANSETRON 4 MG/2 ML VIAL ONE (19:28)
[2019-05-11 19:42] LABS: Absolute Lymphocytes (CBC) 1.5 K/uL (0.7-4.9); Basophils % 0.7 % (0-1.3); Lymphocytes % 14.4 % (15.3-44.8); MPV 7.1 fL (7.6-11.3)
[2019-05-11 20:04] LABS: ALT/SGPT 16 U/L (12-78); AST/SGOT 33 U/L (15-37); Albumin 3.1 g/dL (3.4-5.0); Alkaline Phosphatase 88 U/L (45-117); BUN Blood Urea Nitrogen 9 mg/dL (7-18); Bicarbonate 26 mmol/L (21-32); Bilirubin Direct 0.2 mg/dL (0-0.2); Bilirubin Total 0.7 mg/dL (0.2-1.0); Creatine Phosphokinase 46 U/L (39-308); Glucose Level 97 mg/dL (74-106); Lipase 81 U/L (73-393); Potassium 3.5 mmol/L (3.5-5.1); Protein, Total 6.9 g/dL (6.4-8.2); Sodium Level 135 mmol/L (136-145); Troponin (Emerg Dept Use Only) < 0.02 ng/mL (0.0-0.045)
[2019-05-11 20:07] LABS: Protime INR 1.23
--- NOTE | 2019-05-11 20:14 | RAD REPORT ---
EXAM DESCRIPTION: [facility] Single View05/11/2019 7:56 pm CLINICAL HISTORY: fever COMPARISON: May 04, 2019 FINDINGS: No change in the left upper lobe opacity. Right lung appears clear of acute infiltrate. The heart is normal size
[2019-05-11] MEDS ORDERED: CEFEPIME 1 GM/100 ML BAG IV ONE (20:27)
--- NOTE | 2019-05-12 00:20 | ER ---
Nurse's Notes [facility] Name: Vel Reynolds Age: 74 yrs Sex: Male : 1945 Arrival Date: 05/11/2019 Time: 17:50 Bed 7 Private MD: Diagnosis: Sepsis, unspecified organism;Lobar pneumonia, unspecified organism;Infectious gastroenteritis and colitis, unspecified Presentation: 05/11 18:20 Presenting complaint: Patient states: "I had chemo last week. 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 Denies pain. Transition of care: patient was not received from another setting of care. Onset of symptoms was 2018. Risk Assessment: Do you want to hurt yourself or someone else? Patient reports no desire to harm self or others. Initial Sepsis Screen: Does the patient meet any 2 criteria? HR > 90 bpm. No. Patient's initial sepsis screen is negative. Does the patient have a suspected source of infection? No. Patient's initial sepsis screen is negative. Care prior to arrival: None. 18:20 Method Of Arrival: Wheelchair aj1 18:20 Acuity: BETSY 2 aj1 Triage Assessment: 18:22 General: Appears in no apparent distress. comfortable, Behavior is calm, cooperative, aj1 appropriate for age. 18:22 Pain: Denies pain. Neuro: Level of Consciousness is awake, alert, obeys commands. aj1 Cardiovascular: Patient's skin is warm and dry. Respiratory: Airway is patent Respiratory effort is even, unlabored, Respiratory pattern is regular, symmetrical. GI: Reports nausea, vomiting. Historical: - Allergies: 18:22 No Known Allergies; aj1 - Home Meds: 19:37 dexamethasone 4 mg Oral tab take 2 1/2 tabs at 5PM and 10PM the night before each chemo ak1 [Active]; finasteride 5 mg Oral tab 1 tab once daily [Active]; lisinopril-hydrochlorothiazide 20-12.5 mg Oral tab once daily [Active]; metformin 1,000 mg Oral tab once a day [Active]; ondansetron 4 mg Oral TbDL every 4-6 hours [Active]; potassium chloride 20 mEq Oral TbTQ once daily [Active]; prednisone 5 mg Oral tab 2 times per day [Active]; simvastatin 20 mg Oral tab 1 tab once daily [Active]; tamsulosin 0.4 mg Oral cp24 1 cap once daily [Active]; Tylenol #3 Oral 1-2 tabs every 4-6 hrs as needed [Active]; - PMHx: 18:22 Diabetes - NIDDM; Hyperlipidemia; Hypertension; Penile implant; throat cancer; lung aj1 cancer- currently on chemo; - Immunization history:: Adult Immunizations unknown. - Ebola Screening: : Patient denies travel to an Ebola-affected area in the 21 days before illness onset. - Social history:: Smoking status: Patient/guardian denies using tobacco. Screenin:34 Abuse screen: Denies threats or abuse. Denies injuries from another. Nutritional ak1 screening: No deficits noted. Tuberculosis screening: No symptoms or risk factors identified. Fall Risk None identified. Assessment: 19:34 General: Appears in no apparent distress. ill, slender, well groomed, Behavior is calm, ak1 cooperative. Pain: Denies pain. Neuro: Level of Consciousness is awake, alert, obeys commands, Oriented to person, place, time, situation, Appropriate for age Capsule Filling Machine Operator are equal bilaterally Moves all extremities. Gait is shuffling, Speech is normal, Facial symmetry appears normal. Cardiovascular: No deficits noted. Respiratory: Airway is patent Respiratory effort is even, unlabored, Respiratory pattern is regular, Breath sounds are clear. GI: Abdomen is flat, non-distended, Bowel sounds present X 4 quads. Reports nausea, vomiting, since last after Chemo treatment. : No signs and/or symptoms were reported regarding the genitourinary system. EENT: No signs and/or symptoms were reported regarding the EENT system. Derm: No signs and/or symptoms reported regarding the dermatologic system. Musculoskeletal: No signs and/or symptoms reported regarding the musculoskeletal system. 20:23 Reassessment: Patient appears in no apparent distress at this time. No changes from ak1 previously documented assessment. Patient and/or family updated on plan of care and expected duration. Pain level reassessed. Patient is alert, oriented x 3, equal unlabored respirations, skin warm/dry/pink. 21:23 Reassessment: pt c/o left shoulder pain since yesterday. ak1 23:57 Reassessment: Patient appears in no apparent distress at this time. No changes from ak1 previously documented assessment. Patient and/or family updated on plan of care and expected duration. Pain level reassessed. Vital Signs: 18:22 BP 122 / 67; Pulse 103; Resp 20; Temp 99.4; Pulse Ox 94% on R/A; Weight 69.85 kg (R); aj1 Height 5 ft. 2 in. (157.48 cm) (R); Pain 0/10; 20:23 BP 148 / 68; Pulse 115; Resp 20; Pulse Ox 94% on R/A; ak1 21:22 BP 137 / 81; Pulse 115; Resp 20; Temp 99.6(O); Pulse Ox 90% on R/A; ak1 23:58 BP 136 / 69; Pulse 114; Resp 20; Pulse Ox 90% on R/A; ak1 05/12 00:51 BP 119 / 64; Pulse 113; Resp 20; Temp 98.7(O); Pulse Ox 91% on R/A; ak1 05/11 18:22 Body Mass Index 28.17 (69.85 kg, 157.48 cm) aj ED Course: 05/11 17:50 Patient arrived in ED. as 18:21 Triage completed. aj1 18:22 Arm band placed on Patient placed in waiting room, Patient notified of wait time. aj1 19:03 Roula Navas, RN is Primary Nurse. ak1 19:06 Ray Conrad MD is Attending Physician. gs 19:33 Inserted saline lock: 22 gauge in right forearm, using aseptic technique. Blood oe collected. 19:34 Patient has correct armband on for positive identification. Placed in gown. Bed in low ak1 position. Call light in reach. Side rails up X 1. color television console monitor on. Pulse ox on. NIBP on. Door closed. Warm blanket given. 20:00 Chest Single View XRAY In Process Unspecified. EDMS 20:02 Notified ED physician of a critical lab result(s). lactate of 3.3. fc 21:50 CT Stone Protocol In Process Unspecified. EDMS 05/12 00:16 Milan Guevara DO is Hospitalizing Provider. gs 00:25 No provider procedures requiring assistance completed. Patient admitted, IV remains in ak1 place. Administered Medications: 05/11 19:31 Drug: NS 0.9% 1000 ml Route: IV; Rate: 1 bolus; Site: right forearm; ak1 20:23 Follow up: IV Status: Completed infusion; IV Intake: 1000ml ak1 19:31 Drug: Zofran 4 mg Route: IVP; Site: right forearm; ak1 20:23 Follow up: Response: No adverse reaction ak1 20:31 Drug: NS 0.9% 1100 ml Route: IV; Rate: 1 bolus; Site: right forearm; ak1 21:22 Follow up: IV Status: Completed infusion; IV Intake: 1000ml ak1 20:32 Drug: Cefepime 1 grams Route: IVPB; Rate: 200 ml/hr; Infused Over: 30 mins; Site: right ak1 forearm; 21:22 Follow up: IV Status: Completed infusion; IV Intake: 100ml ak1 Intake: 20:23 IV: 1000ml; Total: 1000ml. ak1 21:22 IV: 1000ml; Total: 2000ml. ak1 21:22 IV: 100ml; Total: 2100ml. ak1 Outcome: 05/12 00:17 Decision to Hospitalize by Provider. 00:25 Admitted to Med/surg accompanied by tech, family with patient, via stretcher, with ak1 chart. 00:25 Condition: stable 00:25 Instructed on the need for admit, Demonstrated understanding of 01:39 Patient left the ED. ak1 Signatures: Dispatcher [employer] EDDestini Abbott RN RN aj1 Lesvia Anderson RN RN fc Martinez, Amelia as Krenek, Amber, RN RN ak1 Jenaro Plascencia Gregory, MD MD
--- NOTE | 2019-05-12 00:21 | EDPHYS ---
Physician Documentation [facility] Name: Vel Reynolds Age: 74 yrs Sex: Male : 1945 Arrival Date: 05/11/2019 Time: 17:50 Bed 7 Private MD: ED Physician Ray Conrad HPI: 05/12 00:17 This 74 yrs old Male presents to ER via Wheelchair with complaints of gs Nausea/Vomiting. 00:17 The patient presents to the emergency department with vomiting, abdominal pain. Onset: gs The symptoms/episode began/occurred yesterday. Possible causes: unknown. The symptoms are aggravated by nothing. The symptoms are alleviated by nothing. Associated signs and symptoms: Pertinent positives: abdominal pain, fever, vomiting. Severity of symptoms: At their worst the symptoms were severe in the emergency department the symptoms are unchanged. The patient has experienced similar episodes in the past, a few times. The patient has been recently seen by a physician: kate about 8 days ago. Historical: - Allergies: 05/11 18:22 No Known Allergies; aj1 - Home Meds: 19:37 dexamethasone 4 mg Oral tab take 2 1/2 tabs at 5PM and 10PM the night before each chemo ak1 [Active]; finasteride 5 mg Oral tab 1 tab once daily [Active]; lisinopril-hydrochlorothiazide 20-12.5 mg Oral tab once daily [Active]; metformin 1,000 mg Oral tab once a day [Active]; ondansetron 4 mg Oral TbDL every 4-6 hours [Active]; potassium chloride 20 mEq Oral TbTQ once daily [Active]; prednisone 5 mg Oral tab 2 times per day [Active]; simvastatin 20 mg Oral tab 1 tab once daily [Active]; tamsulosin 0.4 mg Oral cp24 1 cap once daily [Active]; Tylenol #3 Oral 1-2 tabs every 4-6 hrs as needed [Active]; - PMHx: 18:22 Diabetes - NIDDM; Hyperlipidemia; Hypertension; Penile implant; throat cancer; lung aj1 cancer- currently on chemo; - Immunization history:: Adult Immunizations unknown. - Ebola Screening: : Patient denies travel to an Ebola-affected area in the 21 days before illness onset. - Social history:: Smoking status: Patient/guardian denies using tobacco. ROS: 05/12 00:17 All other systems are negative. gs Exam: 00:17 Head/Face: Normocephalic, atraumatic. Eyes: Pupils equal round and reactive to light, gs extra-ocular motions intact. Lids and lashes normal. Conjunctiva and sclera are non-icteric and not injected. Cornea within normal limits. Periorbital areas with no swelling, redness, or edema. ENT: Nares patent. No nasal discharge, no septal abnormalities noted. Tympanic membranes are normal and external auditory canals are clear. Oropharynx with no redness, swelling, or masses, exudates, or evidence of obstruction, uvula midline. Mucous membranes moist. Neck: Trachea midline, no thyromegaly or masses palpated, and no cervical lymphadenopathy. Supple, full range of motion without nuchal rigidity, or vertebral point tenderness. No Meningismus. Chest/axilla: Normal chest wall appearance and motion. Nontender with no deformity. No lesions are appreciated. Respiratory: Lungs have equal breath sounds bilaterally, clear to auscultation and percussion. No rales, rhonchi or wheezes noted. No increased work of breathing, no retractions or nasal flaring. Back: No spinal tenderness. No costovertebral tenderness. Full range of motion. Skin: Warm, dry with normal turgor. Normal color with no rashes, no lesions, and no evidence of cellulitis. MS/ Extremity: Pulses equal, no cyanosis. Neurovascular intact. Full, normal range of motion. Neuro: Awake and alert, GCS 15, oriented to person, place, time, and situation. Cranial nerves II-XII grossly intact. Motor strength 5/5 in all extremities. Sensory grossly intact. Cerebellar exam normal. Normal gait. 00:17 Constitutional: The patient appears alert, awake. 00:17 Cardiovascular: Rate: tachycardic, Rhythm: regular, Pulses: no pulse deficits are appreciated. 00:17 ECG was reviewed by the Attending Physician. 00:17 Abdomen/GI: Palpation: moderate abdominal tenderness, in all quadrants. Vital Signs: 05/11 18:22 BP 122 / 67; Pulse 103; Resp 20; Temp 99.4; Pulse Ox 94% on R/A; Weight 69.85 kg (R); aj1 Height 5 ft. 2 in. (157.48 cm) (R); Pain 0/10; 20:23 BP 148 / 68; Pulse 115; Resp 20; Pulse Ox 94% on R/A; ak1 21:22 BP 137 / 81; Pulse 115; Resp 20; Temp 99.6(O); Pulse Ox 90% on R/A; ak1 23:58 BP 136 / 69; Pulse 114; Resp 20; Pulse Ox 90% on R/A; ak1 05/12 00:51 BP 119 / 64; Pulse 113; Resp 20; Temp 98.7(O); Pulse Ox 91% on R/A; ak1 05/11 18:22 Body Mass Index 28.17 (69.85 kg, 157.48 cm) aj1 MDM: 05/11 19:15 Patient medically screened. 05/12 00:17 Differential diagnosis: Nonspecific abd pain, pancreatitis, gastroenteritis, sepsis. Data reviewed: vital signs, nurses notes, lab test result(s), EKG, radiologic studies. Counseling: I had a detailed discussion with the patient and/or guardian regarding: the historical points, exam findings, and any diagnostic results supporting the discharge/admit diagnosis, the need for further work-up and treatment in the hospital. Response to treatment: the patient's symptoms have markedly improved after treatment, and as a result, I will discharge patient. 05/11 19:16 Order name: Basic Metabolic Panel; Complete Time: 21:04 05/11 19:16 Order name: Blood Culture Adult (2) 05/11 19:16 Order name: CBC with Diff; Complete Time: 21:04 05/11 19:16 Order name: CPK; Complete Time: 21:04 05/11 19:16 Order name: Lactate; Complete Time: 21:04 05/11 19:16 Order name: LFT's; Complete Time: 21:04 05/11 19:16 Order name: Lipase; Complete Time: 21:04 05/11 19:16 Order name: Procalcitonin; Complete Time: 21:04 05/11 19:16 Order name: Protime (+inr); Complete Time: 21:04 05/11 19:16 Order name: Troponin (emerg Dept Use Only); Complete Time: 21:04 05/11 19:16 Order name: Urine Microscopic Only 05/11 19:16 Order name: Chest Single View XRAY; Complete Time: 21:04 05/11 19:16 Order name: Urine Culture 05/12 00:08 Order name: Lactate Sepsis 2 HR Follow-up; Complete Time: 00:12 EDMS 05/11 19:16 Order name: Cardiac monitoring; Complete Time: 19:26 05/11 19:16 Order name: EKG - Nurse/Tech; Complete Time: 21:23 05/11 19:16 Order name: IV Saline Lock - Large Bore; Complete Time: 19:31 05/11 19:16 Order name: Labs collected and sent; Complete Time: 19:31 05/11 19:16 Order name: O2 Per Protocol; Complete Time: 19:26 05/11 19:16 Order name: O2 Sat Monitoring; Complete Time: : 05/11 21:05 Order name: CT Stone Protocol EC:17 Rate is 115 beats/min. Rhythm is regular. NM interval is normal. QRS interval is gs normal. QT interval is normal. Q waves are Old in leads V1, V2. T waves are Normal. No ST changes noted. Clinical impression: NSR w/ Non-specific ST/T Changes and Abnormal EKG without significant change. Interpreted by me. Administered Medications: 05/11 19:31 Drug: NS 0.9% 1000 ml Route: IV; Rate: 1 bolus; Site: right forearm; ak1 20:23 Follow up: IV Status: Completed infusion; IV Intake: 1000ml ak1 19:31 Drug: Zofran 4 mg Route: IVP; Site: right forearm; ak1 20:23 Follow up: Response: No adverse reaction ak1 20:31 Drug: NS 0.9% 1100 ml Route: IV; Rate: 1 bolus; Site: right forearm; ak1 21:22 Follow up: IV Status: Completed infusion; IV Intake: 1000ml ak1 20:32 Drug: Cefepime 1 grams Route: IVPB; Rate: 200 ml/hr; Infused Over: 30 mins; Site: right ak1 forearm; 21:22 Follow up: IV Status: Completed infusion; IV Intake: 100ml ak1 Disposition: 05/12/19 00:17 Hospitalization ordered by Milan Guevara for Inpatient Admission. Preliminary diagnosis are Sepsis, unspecified organism, Lobar pneumonia, unspecified organism, Infectious gastroenteritis and colitis, unspecified. - Bed requested for Telemetry/MedSurg (Inpatient). - Status is Inpatient Admission. ak1 - Condition is Stable. - Problem is new. - Symptoms have improved. UTI on Admission? No Critical care time excluding procedures: 05/12 00:17 Critical care time: Bedside Care: 10 minutes, Consultation: 10 minutes, Family gs Intervention: 10 minutes. Total time: 30 minutes Signatures: Dispatcher [employer] EDDestini Abbott RN RN aj1 Roula Navas RN RN ak1 Teresa Reynolds RN RN cg Starr, Gregory, MD MD gs Corrections: (The following items were deleted from the chart) 00:58 00:17 Hospitalization Ordered by Milan Guevara DO for Inpatient Admission. Preliminary diagnosis is Sepsis, unspecified organism; Lobar pneumonia, unspecified organism; Infectious gastroenteritis and colitis, unspecified. Bed requested for Telemetry/MedSurg (Inpatient). Status is Inpatient Admission. Condition is Stable. Problem is new. Symptoms have improved. UTI on Admission? No. 01:39 00:58 05/12/2019 00:17 Hospitalization Ordered by Milan Guevara DO for Inpatient ak1 Admission. Preliminary diagnosis is Sepsis, unspecified organism; Lobar pneumonia, unspecified organism; Infectious gastroenteritis and colitis, unspecified. Bed requested for Telemetry/MedSurg (Inpatient). Status is Inpatient Admission. Condition is Stable. Problem is new. Symptoms have improved. UTI on Admission? No. cg
--- NOTE | 2019-05-12 00:55 | P.HP ---
Certification for Inpatient Patient admitted to: Inpatient With expected LOS: >2 Midnights Patient will require the following post-hospital care: Other (Patient may require hospice at discharge) Practitioner: I am a practitioner with admitting privileges, knowledge of patient current condition, hospital course, and medical plan of care. Services: Services provided to patient in accordance with Admission requirements found in Title 42 Section 412.3 of the Code of Federal Regulations Patient History Date of Service: 05/12/19 Primary Care Provider: Lia Silva; Oncology-Dr. Solomon Reason for admission: Nausea, vomiting, poor appetite, fatigue History of Present Illness: 74-year-old male with multiple medical problems including stage IIIB lung cancer, diabetes, BPH, COPD, and malnutrition. Most of the information came from the patient and sons who were present at bedside. All report that the patient has had poor appetite over the past week. He did receive chemotherapy last week. Since that time increased nausea, vomiting, fatigue have been noted. Today patient had fever with chills. Sons report the his condition has declined since last hospitalized in February of 2019. He was at a skilled facility then went home. At home he has since stopped using his breathing medication for COPD. Patient still smokes. His blood pressure medication and medication for diabetes had been recently stopped due to hypoglycemia and low blood pressure. In the ER patient was evaluated. Patient was tachycardic and had some hypoxia in the emergency room. Initial chest x-ray unremarkable. CT scan showed findings of enteritis, mild patchy infiltrates to the right lung base, small bilateral pleural effusions and emphysematous lung disease. White count 10.3, hemoglobin 12. Platelet count of 386. Initial lactic acid was 3.3. Patient was suspected in having sepsis. Sepsis protocol initiated. Patient received IV fluids at 30 milligram/kilogram. Repeat lactic acid improved to 1.2. Pro calcitonin 0.07. Sodium 135, potassium 3.9. BUN of 9, creatinine 0.7 with a GFR greater than 90. Glucose 97. Patient given cefepime in the emergency room. Blood cultures obtained. Patient will be admitted for further evaluation and treatment. When I saw the patient in the ER, he appeared comfortable. Son at bedside. Cough noted. Sons report that his condition has declined since last seen in February. They are considering hospice if his condition worsens. Allergies No Known Allergies Allergy (Verified 02/11/19 20:19) Home medications list reviewed: Yes Home Medications: Finasteride [Proscar] 5 mg PO DAILY 02/07/18 Lisinopril/Hydrochlorothiazide [Lisinopril-Hctz 20-12.5 mg Tab] 1 each PO DAILY 02/07/18 Metformin HCl [Glucophage] 1,000 mg PO DAILY 02/07/18 Simvastatin 20 mg PO BEDTIME 02/07/18 Tamsulosin [Flomax] 0.4 mg PO DAILY 02/07/18 Acetaminophen with Codeine [Acetaminophen-Cod #3 Tablet] 1 tab PO SEECOM PRN 05/24 Ondansetron [Ondansetron Odt] 1 tab PO SEECOM PRN 02/11/19 Potassium Chloride 1 tab PO DAILY 02/11/19 dexAMETHasone [Dexamethasone] 2.5 tab PO SEECOM 02/11/19 predniSONE [Prednisone] 1 tab PO BID 02/11/19 - Past Medical/Surgical History Diabetic: Yes -: History of hypertension -: Diabetes mellitus type 2, non-insulin dependent -: Hyperlipidemia -: Stage IIIB lung cancer -: BPH -: COPD -: Tobacco abuse -: GERD -: HERNIA SX Psychosocial/ Personal History: Lives at home with son - Family History Mother -: Heart disease, Diabetes, Stroke Father -: Diabetes, Other (see notes) Notes: infection - Social History Smoking Status: Current every day smoker Alcohol use: No CD- Drugs: No Caffeine use: No Place of Residence: Home Review of Systems General: Fever, Chills, Weakness, Malaise Eyes: Unremarkable ENT: As per HPI (Ear drainage noted. This is chronic) Respiratory: Cough, Shortness of Breath, As per HPI Cardiovascular: As per HPI Gastrointestinal: Nausea, Vomiting, As per HPI Genitourinary: Unremarkable Musculoskeletal: Unremarkable Integumentary: Unremarkable Neurological: Weakness, As per HPI Lymphatics: Unremarkable Physical Examination - Physical Exam General: Alert, In no apparent distress, Oriented x3, Cooperative, Other ( Patient appears malnourished.) HEENT: Atraumatic, Normocephalic, Other (Dry mucous membranes) Neck: Supple Respiratory: Crackles/rales (Bilateral slightly more on the right than left.), Expiratory wheezes (Bilateral), Inspiratory wheezes (Bilateral) Cardiovascular: Abnormal pulses (Sinus tachycardia) Gastrointestinal: Normal bowel sounds, Non-distended, No masses, No rebound, No guarding, Tenderness (Minimal tenderness to the abdomen) Integumentary: No tenderness/swelling, No erythema, No warmth, No cyanosis Neurological: Normal speech, Normal strength at 5/5 x4 extr, Normal tone, Abnormal affect (Patient appears depressed) - Studies Laboratory Data (last 24 hrs) 05/11/19 19:20: PT 14.4 H, INR 1.23 05/11/19 19:20: WBC 10.3, Hgb 12.0 L, Hct 36.0 L, Plt Count 386 05/11/19 19:20: Sodium 135 L, Potassium 3.5, BUN 9, Creatinine 0.78, Glucose 97 , Total Bilirubin 0.7, AST 33, ALT 16, Alkaline Phosphatase 88, Lipase 81 Assessment and Plan - Plan Impression: Sepsis likely related to right lower lobe pneumonia, possible aspiration with small bilateral pleural effusions Abdominal pain, nausea and vomiting secondary to enteritis Mild acute COPD exacerbation with hypoxia on chronic steroids Stage IIIB lung cancer with recent chemotherapy Diabetes mellitus type 2, non-insulin dependent BPH GERD Depression Mild to moderate protein Malnutrition Plan: Sepsis likely related to right lower lobe pneumonia, possible aspiration with small bilateral pleural effusions: Patient will be admitted for further evaluation and treatment. Sepsis protocol in place. Patient given fluid bolus at 30 milligram/kilogram in the emergency room. Cefepime given in the emergency room. Suspect aspiration. Will change antibiotics to IV Zosyn. Will continue with IV fluid hydration. DVT prophylaxis-Lovenox in place. Will provide medication for cough, congestion. Will also provide Solu-Medrol due to likely underlying acute COPD exacerbation. Continue COPD medication. Maintain sats above 90%. Obtain blood cultures. Obtain sputum culture. Monitor chest x -ray. Plan of care addressed with patient and sons. If his condition does not significantly improve sons would considering hospice. Patient may eventually require hospice at discharge. Daytime hospitalist-Dr. Choi to assume care tomorrow. Anticipate discharge in the next 3-5 days with clinical improvement. Abdominal pain, nausea and vomiting secondary to enteritis: CT scan revealed enteritis. Will keep the patient NPO tonight. Will start with a clear liquid diet as tolerated tomorrow. Will provide Protonix. Continue IV fluids. Will provide medication for nausea. Continue to reassessed closely. Mild acute COPD exacerbation with hypoxia on chronic steroids: Continue with IV Solu-Medrol. Will provide medication for COPD. Will maintain sats above 90% . Pulmonology consulted to further evaluate. Stage IIIB lung cancer with recent chemotherapy: Patient had chemotherapy last . Sons have reported a decrease in his overall status. Sons are considering hospice if his condition does not continue to improve. They will consider hospice at discharge. Diabetes mellitus type 2, non-insulin dependent: Will monitor Accu-Cheks and provide sliding scale. BPH: Continue home medication finasteride. GERD: Will provide IV Protonix. Aspiration precaution in place. Depression: Will consider treatment if not already started on medication. Mild to moderate protein Malnutrition: Patient may require dietary consultation. Encourage oral intake once intake reinitiated. Discharge Plan: Home Plan to discharge in: Greater than 2 days - Advance Directives Does patient have a Living Will: No Does patient have a Durable POA for Healthcare: No - Code Status/Comfort Care Code Status Assessed: Yes (Patient is do not resuscitate. This was confirmed with POA.) Time Spent Managing Pts Care (In Minutes): 55
[2019-05-12] MEDS ORDERED: SODIUM CHLORIDE 0.9% 10ML INJ IV PRN (01:14)
[2019-05-12] MEDS ORDERED: ONDANSETRON 4 MG/2 ML VIAL IV PRN (01:14)
[2019-05-12] MEDS ORDERED: ACETAMINOPHEN 500 MG TAB PO PRN (01:14)
[2019-05-12] MEDS ORDERED: IPRATROPIUM BROM 0.5MG/2.5ML NEB PRN (01:14)
[2019-05-12] MEDS ORDERED: ACETAMINOPHEN 650MG/RECT SUPP RECT PRN (01:14)
[2019-05-12 01:45] VITALS: BMI 20.1
[2019-05-12] MEDS: D5 0.45 NS 1,000 ML IV SCH ×2 (02:53→11:14)
[2019-05-12] MEDS: METHYLPREDNISOLONE 40 MG INJ IV SCH ×3 (02:53→17:11)
[2019-05-12] MEDS ORDERED: PIPER/TAZO/NS 3.375gm 3.375 GM/100 ML BAG ONE (03:04)
[2019-05-12] MEDS: PIPER/TAZO/NS 3.375gm 3.375 GM/100 ML BAG IVPB SCH ×2 (03:11→08:45)
--- NOTE | 2019-05-12 03:29 | P.INFCA ---
Sepsis Focused Assessment - Focused Assessment Complete? Sepsis Focused Assessment Completed?: Yes - Sepsis Screen Result Severe Sepsis: Positive Septic Shock: Negative (Patient appears improved. No Resp. distress.) - Evaluation Current stage of sepsis: Severe sepsis - Vital Signs Reviewed: Yes Temperature: 98.3 F Heart rate: 117 Blood Pressure: 136/63 Respiratory Rate: 18 O2 Sat by Pulse Oximetry: 90 - Examination Date exam was performed: 05/12/19 Time exam was performed: 03:28 Heart: Tachycardia Lungs: Crackles Peripheral pulses: 3+ Normal Peripheral pulse location: Radial Capillary refill: <2 Seconds Skin examination: Normal turgor (Patient in bed. He reports feeling better. He is not in any resp. distress. He appears improved. )
[2019-05-12] MEDS ORDERED: POTASSIUM CL SA 10 MEQ TAB PO ONE (05:16)
[2019-05-12] MEDS: INSULIN -REGULAR HUMAN 50 UNIT/0.5 ML ML SQ SCH ×4 (06:00→21:22)
[2019-05-12] MEDS ORDERED: INSULIN -REGULAR HUMAN 50 UNIT/0.5 ML ML SQ SCH (07:30)
[2019-05-12 07:41] LABS: Urine Appearance CLEAR; Urine Bilirubin NEGATIVE (NEG); Urine Blood 1+ (NEG); Urine Color YELLOW; Urine Glucose NEGATIVE (NEG); Urine Protein NEGATIVE (NEG); Urine Specific Gravity 1.015 (1.005-1.030); Urine Urobilinogen 0.2 mg/dL (0.2-1.0); Urine pH 5.5 (5.0-7.0)
[2019-05-12] MEDS: ARFORMOTEROL TARTRATE 15 MCG/2 ML VIAL.NEB NEB SCH ×2 (07:50→20:00)
[2019-05-12 08:25] LABS: Urine Bacteria <20 /HPF (NONE SEEN)
[2019-05-12 08:27] LABS: Urine Culture Reflex Order NOT NEEDED
[2019-05-12] MEDS: GUAIFENESIN 600 MG SA TAB PO SCH ×2 (08:45→21:21)
[2019-05-12] MEDS: ENOXAPARIN 40 MG/0.4 ML SQ SCH (08:45)
[2019-05-12] MEDS: PANTOPRAZOLE 40 MG INJ IVP SCH (08:45)
--- NOTE | 2019-05-12 11:51 | P.CNS ---
Date of Consult: 05/12/19 Primary Care Provider: [facility]; Oncology-Dr. Solomon Chief Complaint: Nausea, vomiting, poor appetite, fatigue History of Present Illness: PATIENT IS 74 YEARS OF AGE IN RECENT TREATED FOR LUNG CANCER was admitted here complaining of nausea vomiting weakness and chemotherapy on patient is an active smoker patient is not on any oxygen a bronchodilators still is hoarse has had left vocal cord paralysis Allergies No Known Allergies Allergy (Verified 02/11/19 20:19) Home Medications: Finasteride [Proscar] 5 mg PO DAILY 02/07/18 Simvastatin 20 mg PO BEDTIME 02/07/18 Tamsulosin [Flomax] 0.4 mg PO DAILY 02/07/18 Acetaminophen with Codeine [Acetaminophen-Cod #3 Tablet] 1 tab PO SEECOM PRN 05/24 Ondansetron [Ondansetron Odt] 1 tab PO SEECOM PRN 02/11/19 Pentoxifylline 400 mg PO DAILY 05/12/19 - Past Medical/Surgical History Diabetic: Yes -: History of hypertension -: Diabetes mellitus type 2, non-insulin dependent -: Hyperlipidemia -: Stage IIIB lung cancer -: BPH -: COPD -: Tobacco abuse -: GERD -: HERNIA SX Psychosocial/ Personal History: Lives at home with son - Family History Mother Medical History: Heart disease, Diabetes, Stroke Father Medical History: Diabetes, Other (see notes) Notes: infection - Social History Alcohol use: Yes CD- Drugs: No Caffeine use: Yes Place of Residence: Home Review of Systems General: Weakness Respiratory: Cough, Shortness of Breath Physical Examination Temp Pulse Resp BP Pulse Ox 97 F 98 H 18 117/57 L 98 05/12/19 08:00 05/12/19 08:00 05/12/19 08:00 05/12/19 08:00 05/12/19 08:00 General: Alert, Oriented x3 Neck: Supple Respiratory: Expiratory wheezes Cardiovascular: No edema, Regular rate/rhythm, Normal S1 S2 Laboratory Data (last 24 hrs) 05/11/19 19:20: PT 14.4 H, INR 1.23 05/11/19 19:20: WBC 10.3, Hgb 12.0 L, Hct 36.0 L, Plt Count 386 05/11/19 19:20: Sodium 135 L, Potassium 3.5, BUN 9, Creatinine 0.78, Glucose 97 , Total Bilirubin 0.7, AST 33, ALT 16, Alkaline Phosphatase 88, Lipase 81 - Problems (1) Chemotherapy adverse reaction Current Visit: Yes Status: Acute Plan: Patient is 74 years of age with a history of presume COPD recently diagnosed with lung cancer has vocal cord paralysis is admitted with nausea vomiting weakness shortly after his chemotherapy patient has abnormal chest x-ray as a mass in the upper lobe on the left side labs read evidence of sepsis mildly hypokalemic ugly has underlying COPD I recommend bronchodilators on some steroids possible discharge tomorrow he may qualify for oxygen check room air pulse ox and he will benefit from a bronchodilator consider Advair or Symbicort the time of discharge Dc antibiotics
[2019-05-12] MEDS ORDERED: NA CHLORIDE 0.9% 1,000 ML IV SCH (12:00)
[2019-05-12] MEDS ORDERED: Magnesium Sulfate 2gm IVPB 2 G/50 ML BAG IV ONE (12:14)
[2019-05-12] MEDS: NACHLORIDE 0.45% 1,000 ML IV SCH ×2 (12:41→22:50)
[2019-05-12] MEDS: IPRATROPIUM BROM 0.5MG/2.5ML NEB SCH ×2 (13:50→20:00)
[2019-05-12] MEDS: LEVALBUTEROL 0.63 MG/3 ML NEB NEB PRN (13:50)
[2019-05-12] MEDS ORDERED: FINASTERIDE 5 MG TAB PO SCH (21:00)
[2019-05-12] MEDS: BENZONATATE 100 MG CAP PO PRN (21:25)
[2019-05-12] MEDS: CODEINE 30MG/APAP 300MG TAB PO PRN (21:56)
[2019-05-13] MEDS: METHYLPREDNISOLONE 40 MG INJ IV SCH ×3 (00:28→16:59)
[2019-05-13] MEDS: IPRATROPIUM BROM 0.5MG/2.5ML NEB SCH ×4 (02:00→20:45)
[2019-05-13] MEDS: LEVALBUTEROL 0.63 MG/3 ML NEB NEB PRN ×2 (02:02→07:30)
[2019-05-13] MEDS: CODEINE 30MG/APAP 300MG TAB PO PRN (02:56)
[2019-05-13 05:56] LABS: Absolute Lymphocytes (CBC) 0.4 K/uL (0.7-4.9); Basophils % 0.1 % (0-1.3); Hematocrit 35.8 % (39.6-49.0); Lymphocytes % 2.1 % (15.3-44.8); MPV 7.6 fL (7.6-11.3); RBC Red Blood Cell Count 4.22 M/uL (4.33-5.43)
[2019-05-13 06:02] LABS: ALT/SGPT 14 U/L (12-78); AST/SGOT 25 U/L (15-37); Albumin 2.6 g/dL (3.4-5.0); Alkaline Phosphatase 65 U/L (45-117); BUN Blood Urea Nitrogen 11 mg/dL (7-18); Bicarbonate 23 mmol/L (21-32); Bilirubin Total 0.6 mg/dL (0.2-1.0); Glucose Level 184 mg/dL (74-106); Magnesium 2.1 mg/dL (1.8-2.4); Potassium 3.2 mmol/L (3.5-5.1); Sodium Level 137 mmol/L (136-145)
[2019-05-13 07:23] LABS: Blood Morphology Comment NOT SEEN (NOT SEEN); Platelet Estimate ADEQ
[2019-05-13] MEDS: INSULIN -REGULAR HUMAN 50 UNIT/0.5 ML ML SQ SCH ×4 (07:30→20:52)
[2019-05-13] MEDS: ARFORMOTEROL TARTRATE 15 MCG/2 ML VIAL.NEB NEB SCH ×2 (07:30→20:45)
[2019-05-13] MEDS ORDERED: POTASSIUM 25 MEQ EFFERV TAB PO ONE ×2 (09:00)
[2019-05-13] MEDS: NACHLORIDE 0.45% 1,000 ML IV SCH ×2 (09:44→18:19)
[2019-05-13] MEDS: ENOXAPARIN 40 MG/0.4 ML SQ SCH (09:47)
[2019-05-13] MEDS: GUAIFENESIN 600 MG SA TAB PO SCH ×2 (09:47→20:05)
[2019-05-13] MEDS: PANTOPRAZOLE 40 MG INJ IVP SCH (09:52)
--- NOTE | 2019-05-13 10:33 | RAD REPORT ---
EXAM DESCRIPTION: RAD - Chest Single View - 05/13/2019 5:26 am CLINICAL HISTORY: Follow up pneumonia Chest pain. COMPARISON: Chest Single View dated 05/11/2019; Chest Single View dated 02/19/2019; Chest Single View d ated 02/07/2018; CHEST SINGLE VIEW dated 06/07/2013Chest Single View dated 05/11/2019; Chest Single View d ated 02/19/2019; Chest Single View dated 02/07/2018; CHEST SINGLE VIEW dated 06/07/2013; Stone Protocol d ated 05/11/2019 FINDINGS: Portable technique limits examination quality. Moderate worsening of bilateral upper lobe lung opacities seen since the comparative study, compatibl e with worsening pneumonia. The heart is normal in size. No displaced fractures. IMPRESSION: Moderate worsening of upper lobe pneumonia is seen since 05/11/2019.
[2019-05-13] MEDS ORDERED: ONDANSETRON 4 MG (ODT) TAB PO PRN (10:48)
[2019-05-13] MEDS ORDERED: D50W 25 GM/50 ML SYRINGE IV PRN (10:59)
[2019-05-13] MEDS ORDERED: GLUCAGON 1 MG/VIAL IM PRN (10:59)
[2019-05-13] MEDS ORDERED: INSULIN -REGULAR HUMAN 50 UNIT/0.5 ML ML SQ SCH (11:30)
[2019-05-13] MEDS ORDERED: POTASSIUM CL 40 MEQ in NA CHLORIDE 0.9% 500 ML IV SCH (11:30)
--- NOTE | 2019-05-13 16:23 | PN ---
Subjective: Currently, the patient is lying in bed. He is complaining of nausea. He is constipated . He has not had a bowel movement until 3 days. He is weak, fatigued. He does not believe he can g o home. He would like to be placed at [facility] given that his caregiver is not available during the day to take care of him. Objective: Vital Signs: Blood pressure is 142/71, respiratory rate 18, pulse 88, temperature 97.5, saturating 97%. General: The patient is alert oriented x3. Does not look in much distress except that he is frail. HEENT: Atraumatic, normocephalic. PERRLA. Oral mucosa dry. Neck: Supple. No JVD. Chest: Clear to auscultation with mild expiratory wheezing. Heart: Regular rate and rhythm. S1, S2 normal. Slightly tachy. Abdomen: Soft, nontender. No masses. No hepatosplenomegaly. Positive bowel sounds. Extremities: No clubbing, cyanosis, or edema. No calf tenderness. Neurologic: Grossly intact. Laboratory Data: Today, showed CBC with white blood cell 18.2, hemoglobin 12.4, platelets at 242. C hemistry within normal except for potassium 3.2, glucose 184, calcium 8.3, albumin 2.6. Chest x-ray this morning showed upper lobe pneumonia in both lungs. Assessment And Plan: 1.Bilateral pneumonia versus chronic obstructive pulmonary disease exacerbation. Chest x-ray today showed again infiltrate in the upper lobes, but Dr. Bustillos has seen the patient yesterday, disconti nued antibiotic presuming the patient have a chronic obstructive pulmonary disease exacerbation. We will continue patient on steroid as before and will discuss it with Dr. Bustillos restarting antibioti cs. I am concerned due to the finding on the x-ray today as well as elevation in the white blood [place] ls, which could be in part secondary to steroid, but again infection can cause that as well. Continu e patient also on nebulizer. He is saturating well. 2.Nausea, vomiting post chemotherapy. Resume patient home medication with Zofran. 3.Abdominal pain. Resolved. 4.Stage IIIB lung cancer, on chemotherapy. Follow with Oncology as outpatient. 5.Diabetes mellitus type 2. Glucose in the range of 200-130. Continue patient on insulin sliding s brandt. At this point, could be exacerbated by steroid. 6.Benign prostate hypertrophy. Continue patient on finasteride. 7.Acid reflux. Continue patient on Protonix. 8.Restriction with weight loss. We will consult dietitian in the morning. 9.Placement. The patient refused to go home as he lack caregiver with his granddaughter and son goe s to school so we will need social work consult to place patient at a rehab or [facility] and we wi ll obtain that tomorrow. 10.We will obtain physical therapy, with PT, OT to evaluate and the patient's needs. RICHARD/CARSON Voice ID: [id number] Report ID: [id number]
[2019-05-13] MEDS ORDERED: POTASSIUM CL SA 10 MEQ TAB PO ONE (18:00)
[2019-05-13] MEDS ORDERED: ZOLPIDEM TARTRATE 10 MG TABLET PO ONE (19:00)
[2019-05-13] MEDS: BENZONATATE 100 MG CAP PO PRN (20:05)
[2019-05-13] MEDS: ATORVASTATIN 10 MG TAB PO SCH (20:05)
[2019-05-13] MEDS ORDERED: HOME MED 1 EA UNK (Simvastatin [Simvastatin] 20 MG) PO SCH (21:00)
[2019-05-14] MEDS: METHYLPREDNISOLONE 40 MG INJ IV SCH (00:37)
--- NOTE | 2019-05-14 00:46 | P.PN ---
Subjective Date of Service: 05/14/19 Primary Care Provider: Lia Silva; Oncology-Dr. Solomon Chief Complaint: Nausea, vomiting, poor appetite, fatigue Subjective: Improving (Patient appears improved. No significant shortness of breath at this time. Patient receiving IV fluids and oxygen.) Physical Examination - Vital Signs Temperature: 97.2 F Blood Pressure: 114/56 Pulse: 91 Respirations: 20 Pulse Ox (%): 100 - Physical Exam General: Alert, In no apparent distress, Oriented x3, Cooperative HEENT: Atraumatic Neck: Supple Respiratory: Crackles/rales (To the bases bilateral), Expiratory wheezes, Inspiratory wheezes Cardiovascular: Normal pulses, Regular rate/rhythm Gastrointestinal: Normal bowel sounds, Soft and benign, Non-distended Integumentary: No warmth, No cyanosis, Other (Muscle wasting throughout) Neurological: Normal speech, Normal strength at 5/5 x4 extr, Normal tone, Normal affect - Studies Medications List Reviewed: Yes Assessment & Plan Discharge Plan: [facility] Plan to discharge in: 24 Hours Physician Review Additional Text: Impression: Sepsis likely related to right lower lobe pneumonia, possible aspiration with small bilateral pleural effusions Abdominal pain, nausea and vomiting secondary to enteritis Mild acute COPD exacerbation with hypoxia on chronic steroids Stage IIIB lung cancer with recent chemotherapy Diabetes mellitus type 2, non-insulin dependent BPH GERD Depression Mild to moderate protein Malnutrition Plan: Sepsis likely related to right lower lobe pneumonia, possible aspiration with small bilateral pleural effusions: Patient has improved. Will transition to oral Augmentin. Patient also treated for COPD exacerbation. Patient seen by pulmonology. Will discontinue IV fluids. Encourage oral intake. Maintain sats above 90%. Physical therapy and occupational therapy consulted to help ambulate. Patient will likely qualify for home oxygen. Patient desires to go to a [place] [facility] [place] at discharge. Will consult geriatric social work professor to help in this process. Hospitalist Team will continue his care until patient can be transition to [place] [facility]. Anticipate discharge in the next 24-48 hr. With approval to [place] [facility]. Abdominal pain, nausea and vomiting secondary to enteritis: Patient eating better. Continue to advance diet. Encourage oral intake. Mild acute COPD exacerbation with hypoxia on chronic steroids: Will transition to oral prednisone. Continue COPD medication. Patient will likely require home oxygen at discharge. Stage IIIB lung cancer with recent chemotherapy: Patient had chemotherapy last . Sons have reported a decrease in his overall status. Sons are considering hospice if his condition does not continue to improve. They will consider hospice at discharge. Will [place] [facility] [place]. Diabetes mellitus type 2, non-insulin dependent: Will monitor Accu-Cheks and provide sliding scale. BPH: Continue home medication finasteride. GERD: Will change to oral Protonix. Aspiration precaution in place. Depression: Will consider treatment if not already started on medication. Mild to moderate protein Malnutrition: Patient may require dietary consultation. Encourage oral intake. Time Spent Managing Pts Care (In Minutes): 55
[2019-05-14] MEDS: IPRATROPIUM BROM 0.5MG/2.5ML NEB SCH ×4 (02:25→20:00)
[2019-05-14] MEDS: PANTOPRAZOLE 40MG TABLET PO SCH (06:09)
[2019-05-14 06:37] LABS: Absolute Lymphocytes (CBC) 0.3 K/uL (0.7-4.9); Basophils % 0.2 % (0-1.3); Hematocrit 34.1 % (39.6-49.0); Lymphocytes % 1.3 % (15.3-44.8); MPV 7.5 fL (7.6-11.3); RBC Red Blood Cell Count 4.02 M/uL (4.33-5.43)
[2019-05-14 06:57] LABS: BUN Blood Urea Nitrogen 13 mg/dL (7-18); Bicarbonate 28 mmol/L (21-32); Glucose Level 205 mg/dL (74-106); Magnesium 2.3 mg/dL (1.8-2.4); Sodium Level 142 mmol/L (136-145)
[2019-05-14] MEDS: INSULIN -REGULAR HUMAN 50 UNIT/0.5 ML ML SQ SCH ×4 (07:30→20:47)
[2019-05-14 07:56] LABS: Blood Morphology Comment NOT SEEN (NOT SEEN); Platelet Estimate ADEQ
[2019-05-14] MEDS: PENTOXIFYLLINE ER 400 MG TAB PO SCH (08:32)
[2019-05-14] MEDS: AMOX/K CLAV 875 MG TAB PO SCH ×2 (08:32→20:46)
[2019-05-14] MEDS: TAMSULOSIN 0.4 MG SR CAP PO SCH (08:32)
[2019-05-14] MEDS: predniSONE 20 MG TAB PO SCH ×2 (08:33→20:46)
[2019-05-14] MEDS: ENOXAPARIN 40 MG/0.4 ML SQ SCH (08:33)
[2019-05-14] MEDS: GUAIFENESIN 600 MG SA TAB PO SCH ×2 (08:33→20:45)
[2019-05-14] MEDS: ARFORMOTEROL TARTRATE 15 MCG/2 ML VIAL.NEB NEB SCH ×2 (08:40→20:00)
[2019-05-14] MEDS ORDERED: FINASTERIDE 5 MG TAB PO SCH (09:00)
[2019-05-14] MEDS: CODEINE 30MG/APAP 300MG TAB PO PRN ×2 (10:40→18:42)
--- NOTE | 2019-05-14 16:59 | EKG ---
Test Date: 2019-05-11 Test Time: 19:43:46 Monitor Worker: CARLOS MEASUREMENT RESULTS: Intervals: Rate: 115 VA: 156 QRSD: 66 QT: 334 QTc: 462 [place]: P: 29 VA: 156 QRS: 40 T: -4 INTERPRETIVE STATEMENTS: Sinus tachycardia Septal infarct, age undetermined Abnormal ECG Compared to ECG 02/11/2019 20:28:12 Sinus rhythm no longer present Ventricular premature complex(es) no longer present Myocardial infarct finding still present Electronically Signed On 05-14-19 16:55:45 CDT by Karan Davidson
[2019-05-14] MEDS: ATORVASTATIN 10 MG TAB PO SCH (20:46)
[2019-05-15] MEDS: IPRATROPIUM BROM 0.5MG/2.5ML NEB SCH ×4 (02:00→20:50)
[2019-05-15] MEDS ORDERED: TAMSULOSIN 0.4 MG SR CAP PO ONE (03:47)
[2019-05-15] MEDS: CODEINE 30MG/APAP 300MG TAB PO PRN ×2 (03:58→16:26)
[2019-05-15 05:36] LABS: BUN Blood Urea Nitrogen 16 mg/dL (7-18); Bicarbonate 27 mmol/L (21-32); Glucose Level 140 mg/dL (74-106); Magnesium 2.6 mg/dL (1.8-2.4); Potassium 4.1 mmol/L (3.5-5.1); Sodium Level 141 mmol/L (136-145)
[2019-05-15] MEDS: PANTOPRAZOLE 40MG TABLET PO SCH (05:36)
[2019-05-15 05:53] LABS: Absolute Lymphocytes (CBC) 0.4 K/uL (0.7-4.9); Basophils % 0.1 % (0-1.3); Hematocrit 36.6 % (39.6-49.0); Lymphocytes % 1.9 % (15.3-44.8); MPV 7.4 fL (7.6-11.3); RBC Red Blood Cell Count 4.28 M/uL (4.33-5.43)
[2019-05-15] MEDS: INSULIN -REGULAR HUMAN 50 UNIT/0.5 ML ML SQ SCH ×4 (07:30→20:33)
[2019-05-15] MEDS: ARFORMOTEROL TARTRATE 15 MCG/2 ML VIAL.NEB NEB SCH ×2 (07:41→20:50)
[2019-05-15] MEDS: ENOXAPARIN 40 MG/0.4 ML SQ SCH (09:00)
[2019-05-15] MEDS: TAMSULOSIN 0.4 MG SR CAP PO SCH (09:29)
[2019-05-15] MEDS: PENTOXIFYLLINE ER 400 MG TAB PO SCH (09:29)
[2019-05-15] MEDS: AMOX/K CLAV 875 MG TAB PO SCH ×2 (09:30→20:32)
[2019-05-15] MEDS: predniSONE 20 MG TAB PO SCH ×2 (09:30→20:33)
[2019-05-15] MEDS: GUAIFENESIN 600 MG SA TAB PO SCH ×2 (09:30→20:33)
--- NOTE | 2019-05-15 12:13 | RAD REPORT ---
EXAM DESCRIPTION: CT - Stone Protocol - 05/12/2019 3:15 am CLINICAL HISTORY: Abdominal pain. Vomiting. Assess for obstructive uropathy. TECHNIQUE: CT scan of the abdomen and pelvis was performed without intravenous contrast. 3.0 mm axia l images were obtained along with coronal and sagittal reformatted images. DOSE OPTIMIZATION: This facility uses dose optimization techniques as appropriate to perform exams, including at least one of the following techniques: 1. Automated exposure control. 2. Adjustment of the mA and/or kV according to patient size (this includes techniques or standardized protocols for targeted exams where dose is matched to the indication/reason for exam, i.e. extremiti es or head). 3. Use of iterative reconstructive technique. COMPARISON: None. FINDINGS: Lung Bases: There is moderately severe centrilobular emphysematous lung disease. There are small patchy infiltrates in the right lung base. There are small bilateral pleural effusions. Liver: Normal. Spleen: Normal. Pancreas: Normal. Gallbladder: Normal. Adrenal Glands: Normal. Right Kidney: Normal. Left Kidney: Normal. Right Ureter: Normal. Left Ureter: Normal. Urinary Bladder: Normal. Retroperitoneal Structures: Normal. Bowel Survey: There are mildly distended proximal small bowel loops with short air-fluid levels. Findings could represent enteritis. The appendix is unremarkable. The distal ileum is unremarkable. Prostate Gland: Mildly enlarged measuring 4.4 x 5.1 x 5.3 cm for volume of 61.8 mL. Peritoneal Cavity: There is made of a penile implant with the reservoir in the right lower quadrant. Mesenteric Structures: Normal. Abdominal Wall: No hernia. Bony Structures: No suspicious lesions. IMPRESSION: 1. Findings suggestive of enteritis. 2. Mild patchy infiltrates right lung base. 3. Small bilateral pleural effusions. 4. Emphysematous lung disease. Electronically signed by: Oliver Roldan MD 05/11/2019 10:15 PM CDT Due to temporary technical issues with the PACS/Fluency reporting system, reports are being signed by the in house radiologist as a courtesy to ensure prompt reporting. The interpreting radiologist is f ully responsible for the content of the report.
--- NOTE | 2019-05-15 15:07 | P.PN ---
Subjective Date of Service: 05/15/19 Primary Care Provider: [facility]; Oncology-Dr. Solomon Chief Complaint: Nausea, vomiting, poor appetite, fatigue Review of Systems 10-point ROS is otherwise unremarkable Physical Examination - Vital Signs Temperature: 97.1 F Blood Pressure: 147/70 Pulse: 95 Respirations: 18 Pulse Ox (%): 98 - Physical Exam General: Alert, In no apparent distress HEENT: Atraumatic, PERRLA, EOMI Neck: Supple, JVD not distended Respiratory: Normal air movement, Expiratory wheezes, Inspiratory wheezes Cardiovascular: Regular rate/rhythm, Normal S1 S2 Gastrointestinal: Normal bowel sounds, No tenderness Musculoskeletal: No tenderness Integumentary: No rashes Neurological: Normal speech, Normal tone, Normal affect Lymphatics: No axilla or inguinal lymphadenopathy - Studies Medications List Reviewed: Yes Assessment And Plan Discharge Plan: [facility] Plan to discharge in: Greater than 2 days - Code Status/Comfort Care Code Status Assessed: Yes Physician Review Additional Text: Impression/Plan: Sepsis most likely 2.2 to BL PNA -Intially with elevated WBC and lactic acid. -Started on IV abx, Now switched to PO Augmentin -Xray with Improvement -Will continue current management Acute Respiratory distress 2.2 to PNA vs COPD exacerbation -Pulmonology Consulted. Appreciated Reccs -Duonebs, PO Steriods and Oxygen -Will wean Oxygen as tolerated. -May need Home oxygen if unable to wean off completely Chemorelated N/V -Resolved now, Tolerating Diet. -Continue to advance diet. Stage IIIB lung cancer with recent chemotherapy -Patient had chemotherapy last . -Sons have reported a decrease in his overall status. -Sons are considering hospice if his condition does not continue to improve. Diabetes mellitus type 2, non-insulin dependent -Will monitor Accu-Cheks and provide sliding scale. BPH -Continue home medication finasteride. GERD -Will change to oral Protonix. Aspiration precaution in place. Depression -Will consider treatment if not already started on medication. Mild to moderate protein Malnutrition -Patient may require dietary consultation. Dispo: Awaiting Placement at [facility] and Clinical Improvement Critical Care: No
[2019-05-15] MEDS ORDERED: SODIUM CHL 0.9% IRR SOLN 2000 ML IRR PRN (16:29)
[2019-05-15] MEDS: ATORVASTATIN 10 MG TAB PO SCH (20:33)
[2019-05-16] MEDS: IPRATROPIUM BROM 0.5MG/2.5ML NEB SCH ×4 (01:35→19:40)
[2019-05-16] MEDS: CODEINE 30MG/APAP 300MG TAB PO PRN ×3 (01:52→17:11)
[2019-05-16] MEDS: PANTOPRAZOLE 40MG TABLET PO SCH (05:30)
[2019-05-16 06:41] LABS: Absolute Lymphocytes (CBC) 0.5 K/uL (0.7-4.9); Basophils % 0.3 % (0-1.3); Hematocrit 35.4 % (39.6-49.0); Lymphocytes % 4.3 % (15.3-44.8); MPV 7.3 fL (7.6-11.3); RBC Red Blood Cell Count 4.08 M/uL (4.33-5.43)
[2019-05-16] MEDS: ARFORMOTEROL TARTRATE 15 MCG/2 ML VIAL.NEB NEB SCH ×2 (06:45→19:40)
[2019-05-16 07:16] LABS: BUN Blood Urea Nitrogen 14 mg/dL (7-18); Bicarbonate 26 mmol/L (21-32); Glucose Level 218 mg/dL (74-106); Magnesium 2.4 mg/dL (1.8-2.4); Potassium 3.5 mmol/L (3.5-5.1); Sodium Level 139 mmol/L (136-145)
[2019-05-16] MEDS ORDERED: NACL 0.9% IRR SOLN 2,000 ML IRR ONE (08:20)
[2019-05-16] MEDS: INSULIN -REGULAR HUMAN 50 UNIT/0.5 ML ML SQ SCH ×4 (08:38→21:00)
[2019-05-16] MEDS: ENOXAPARIN 40 MG/0.4 ML SQ SCH (08:40)
[2019-05-16] MEDS: GUAIFENESIN 600 MG SA TAB PO SCH ×2 (08:40→21:45)
[2019-05-16] MEDS: TAMSULOSIN 0.4 MG SR CAP PO SCH (08:40)
[2019-05-16] MEDS: AMOX/K CLAV 875 MG TAB PO SCH (08:40)
[2019-05-16] MEDS: PENTOXIFYLLINE ER 400 MG TAB PO SCH (08:41)
[2019-05-16] MEDS: predniSONE 20 MG TAB PO SCH ×2 (08:41→21:45)
[2019-05-16] MEDS ORDERED: POTASSIUM CL SA 10 MEQ TAB PO ONE (09:00)
--- NOTE | 2019-05-16 16:17 | CON ---
History Of Present Illness: A 74-year-old male with multiple medical problems including sta ge III lung cancer, is on chemotherapy; history of BPH; COPD; malnutrition; history of penile prosthe sis; 3-piece penile prosthesis placement, came in for pneumonia. Apparently went into retention and a Reagan catheter was placed. However, he pulled out his catheter accidentally, caused some bleeding, so they placed a 3-way catheter inside and now the urine is clear. He has his penile prosthesis inf lated, this difficult to deflate he says. I am concern with such a large catheter in the corpora spo ngiosum and the penile prosthesis in the corpora cavernosa, that pressure could be created and there is some erosion, so we are going to remove his catheter today. We are going to fill him up with 300 mL of normal saline, pulled the catheter slowly and then try to get him to void. If he is not able t o void, we will put a smaller catheter, may be a 16 or 14-[place]ese catheter for the patient. Allergies: NO KNOWN DRUG ALLERGIES. Home Medications: Finasteride, lisinopril, simvastatin, Flomax, acetaminophen, Zofran, potassium chl oride, dexamethasone, prednisone. Past Medical History: The patient is diabetic, history of hypertension, type 2 diabetes, hyperlipide richar, stage III lung cancer, BPH, COPD, tobacco abuse, GERD, hernia surgery. Psychosocial History: Lives at home with his son. Family History: Mother had heart disease, diabetes, stroke. Father had diabetes. Social History: Current everyday smoker. Alcohol none. Drugs none. Caffeine none. Living at home . Review of Systems: Ten-point review of systems otherwise unremarkable. Physical Examination: General: Alert, oriented x3. Cooperative. HEENT: Atraumatic, normocephalic. Respiratory: Clear. Cardiovascular: S1, S2. Abdomen: Soft, nontender. Skin: No rashes. Neurologic: Normal speech. Laboratory Data: Reviewed. Coags normal. His white count is down to 11.8, down from 21,000 two day s ago. H and H are 11.8 and 35.4. Platelet count is 238. Chemistry shows glucose 218, electrolytes normal. Urine study shows clear, pH 5.5, 1+ blood, nitrite negative, esterase negative, 5-10 rbc's, may be due to his catheter. Assessment: Urinary retention, status post right lower lobe pneumonia, resolving, stage III lung can cer with recent chemotherapy, type 2 diabetes, benign prostatic hypertrophy, gastroesophageal reflux disease, depression, [id number] protein malnutrition, and still currently smoking. Plan: Plan is to get rid of the 3-way catheter, do voiding trial. We will increase his tamsulosin t o twice a day from once a day. Continue the finasteride. If he is not able to void, we will place a smaller catheter, placing it gently inside the urethra first. HYUN/CARSON Voice ID: [id number] Report ID: [id number]
--- NOTE | 2019-05-16 17:29 | P.PN ---
Subjective Date of Service: 05/16/19 Primary Care Provider: [facility]; Oncology-Dr. Solomon Chief Complaint: Nausea, vomiting, poor appetite, fatigue Subjective: No new changes (Patient states he feels much better today and asking when he gets to go home. Three-way Metzger catheter was inserted due to hematuria from traumatic removal of metzger catheter. His urine is now clear. Patient does not require oxygen. He has been afebrile.), Tolerating diet Review of Systems 10-point ROS is otherwise unremarkable Physical Examination - Vital Signs Temperature: 98 F Blood Pressure: 108/56 Pulse: 86 Respirations: 18 Pulse Ox (%): 94 - Physical Exam General: In no apparent distress, Oriented x3 HEENT: Normocephalic, Mucous membr. moist/pink Neck: Supple Respiratory: Other (Bilateral coarse crackles.) Cardiovascular: No edema, Normal pulses, Regular rate/rhythm, No murmurs Gastrointestinal: Normal bowel sounds, Soft and benign, No ascites Musculoskeletal: No swelling, No erythema Integumentary: No rashes Neurological: Normal speech, Normal strength at 5/5 x4 extr, Normal affect Urinary: Metzger catheter - Studies Microbiology Data (last 24 hrs): Microbiology 05/11/19 19:20 Blood - Blood Aerobic Blood Culture - Preliminary No growth in 24 hours. 05/11/19 19:20 Blood - Blood Anaerobic Blood Culture - Preliminary No growth in 24 hours. Medications List Reviewed: Yes Assessment And Plan Discharge Plan: Skilled Nursing Physician Review Additional Text: Impression/Plan: Sepsis most likely 2.2 to BL PNA -Intially with elevated WBC and lactic acid. -Started on IV abx, Now switched to PO Augmentin -sputum culture growing Serratia resistant to Augmentin. -Augmentin replaced with oral Levaquin. Acute Respiratory distress 2.2 to PNA vs COPD exacerbation -Pulmonology Consulted. -On Duonebs, PO Steriods. -patient now tolerating room air Chemorelated N/V -Resolved -He is tolerating Diet. -Continue to advance diet. Stage IIIB lung cancer with recent chemotherapy -outpatient follow up. Diabetes mellitus type 2, non-insulin dependent -continue to monitor fingerstick glucose -insulin sliding scale for glucose management. BPH/hematuria -history of penile insert -3 way Metzger catheter inserted due to hematuria from traumatic Metzger catheter removal. -urine is now clear. -urology input appreciated. -remove 3 way catheter for voiding trial. -insert normal metzger catheter and maintain the patient failed voiding trial. -Flomax dose increase by year all GERD -continue oral Protonix. Aspiration precaution in place. Mild to moderate protein Malnutrition -Nutritional supplementation. Dispo: Awaiting Placement at [facility] and Clinical Improvement
[2019-05-16] MEDS: levoFLOXacin 750 MG TAB PO SCH (18:10)
[2019-05-16] MEDS: ATORVASTATIN 10 MG TAB PO SCH (21:44)
[2019-05-17] MEDS: IPRATROPIUM BROM 0.5MG/2.5ML NEB SCH ×4 (02:00→20:00)
[2019-05-17] MEDS: CODEINE 30MG/APAP 300MG TAB PO PRN ×2 (03:45→16:36)
[2019-05-17 04:14] LABS: Absolute Lymphocytes (CBC) 0.6 K/uL (0.7-4.9); Basophils % 0.3 % (0-1.3); MPV 7.1 fL (7.6-11.3); RBC Red Blood Cell Count 4.51 M/uL (4.33-5.43)
[2019-05-17 04:29] LABS: BUN Blood Urea Nitrogen 9 mg/dL (7-18); Bicarbonate 29 mmol/L (21-32); Glucose Level 117 mg/dL (74-106); Potassium 3.4 mmol/L (3.5-5.1); Sodium Level 140 mmol/L (136-145)
[2019-05-17] MEDS: PANTOPRAZOLE 40MG TABLET PO SCH (05:41)
[2019-05-17] MEDS: LEVALBUTEROL 0.63 MG/3 ML NEB NEB PRN (05:50)
[2019-05-17] MEDS ORDERED: POTASSIUM CL SA 10 MEQ TAB PO ONE (05:55)
[2019-05-17] MEDS: INSULIN -REGULAR HUMAN 50 UNIT/0.5 ML ML SQ SCH ×4 (07:30→20:58)
[2019-05-17] MEDS: ARFORMOTEROL TARTRATE 15 MCG/2 ML VIAL.NEB NEB SCH ×2 (08:00→20:00)
[2019-05-17] MEDS ORDERED: POLYETHYL GLY 3350 17 GM/DOSE PO ONE (08:30)
[2019-05-17] MEDS ORDERED: BISACODYL 10 MG RECTAL SUPP PR ONE (08:31)
[2019-05-17] MEDS: GUAIFENESIN 600 MG SA TAB PO SCH ×2 (08:43→20:58)
[2019-05-17] MEDS: TAMSULOSIN 0.4 MG SR CAP PO SCH (08:43)
[2019-05-17] MEDS: PENTOXIFYLLINE ER 400 MG TAB PO SCH (08:43)
[2019-05-17] MEDS: ENOXAPARIN 40 MG/0.4 ML SQ SCH (08:44)
[2019-05-17] MEDS: predniSONE 20 MG TAB PO SCH (08:44)
[2019-05-17] MEDS: levoFLOXacin 750 MG TAB PO SCH (08:44)
[2019-05-17] MEDS ORDERED: levoFLOXacin 750 MG TAB PO SCH (09:00)
--- NOTE | 2019-05-17 17:22 | P.PN ---
Subjective Date of Service: 05/17/19 Primary Care Provider: [facility]; Oncology-Dr. Solomon Chief Complaint: Nausea, vomiting, poor appetite, fatigue Patient is complaining of constipation. Otherwise he states he feels a lot better. He has been voiding without difficulty after Reagan catheter removal. He stated his urine remains clear. Review of Systems 10-point ROS is otherwise unremarkable Physical Examination - Vital Signs Temperature: 97.8 F Blood Pressure: 120/65 Pulse: 88 Respirations: 18 Pulse Ox (%): 99 - Physical Exam General: Alert, In no apparent distress, Oriented x3 HEENT: Mucous membr. moist/pink Neck: Supple, JVD not distended Respiratory: Clear to auscultation bilaterally, Normal air movement Cardiovascular: Regular rate/rhythm, Normal S1 S2 Gastrointestinal: Normal bowel sounds, Soft and benign Musculoskeletal: No swelling, No erythema Integumentary: No rashes Neurological: Normal strength at 5/5 x4 extr - Studies Microbiology Data (last 24 hrs): 05/11/19 19:20 Blood - Blood Aerobic Blood Culture - Final No growth in 5 days. 05/11/19 19:20 Blood - Blood Anaerobic Blood Culture - Final No growth in 5 days. Medications List Reviewed: Yes Assessment And Plan Physician Review Additional Text: Impression/Plan: Sepsis most likely 2.2 to BL PNA -Intially with elevated WBC and lactic acid. -sepsis almost resolved -Started on IV abx and then switched to PO Augmentin -sputum culture growing Serratia resistant to Augmentin. -Augmentin replaced with oral Levaquin. -continue oral Levaquin. Acute Respiratory distress 2.2 to PNA vs COPD exacerbation -Pulmonology Consulted. -On Duonebs, taper steroid. -patient now tolerating room air Chemorelated N/V -Resolved -He is tolerating Diet. -Continue to advance diet. Stage IIIB lung cancer with recent chemotherapy -outpatient follow up. Diabetes mellitus type 2, non-insulin dependent -continue to monitor fingerstick glucose -insulin sliding scale for glucose management. BPH/hematuria -history of penile insert -3 way Reagan catheter inserted due to hematuria from traumatic Reagan catheter removal. -urine is now clear. -seen by urology -3 way catheter removed. Patient passed voiding trial -Flomax dose increase by Urology. GERD -continue oral Protonix. Aspiration precaution in place. Mild to moderate protein Malnutrition -Nutritional supplementation. Dispo: Awaiting Placement at [facility] and Clinical Improvement
--- NOTE | 2019-05-17 18:39 | PN ---
Subjective: Patient is doing better today. He is voiding on his own. His Reagan catheter was taken out yesterday. He voided and has been doing so. Objective: Vital Signs: 97.1, 90, 18, 140/92, 94% saturation on room air. I's and O's were recorde d at 3200 in and 300 output, balance 2900. Patient said he is voiding just fine. We have to check a postvoid residual prior to leaving. Assessment: Status post urinary retention. Plan: Check postvoid residual. HYUN/CARSON Voice ID: [id number] Report ID: [id number]
[2019-05-17] MEDS: ATORVASTATIN 10 MG TAB PO SCH (20:58)
[2019-05-17 21:30] VITALS: O2SAT 99
--- NOTE | 2019-05-17 23:00 | PN ---
I was called back. The nurse had difficulty placing the Reagan catheter. Patient has postvoid residu al by ultrasound was over 700 mL, so ordered a catheter in place, Coude. Instructed the nurse how to do it, said she did it, but then there was blood at the meatus and when the catheter was in the blad fernando, no urine was coming back. I asked her if she flushed it when it was in the bladder, she said no , she removed it. So, I came back to do it myself. I prepped and draped and slid in a 16-[place]an Cou de catheter without any problems whatsoever. Catheter within the bladder just fine. I flushed it an d urine started come back immediately. The balloon was inflated with 10 mL sterile water. The Reagan catheter was clamped at every 300 mL and drained every 30 minutes until it was empty. I have starte d him on his Proscar that he was on at home, finasteride, so hopefully that will help with his voidin g symptoms. We will continue antibiotics to prevent infection of concern in the penile prosthesis an d a Reagan catheter in place, high risk of infection. HYUN/CARSON Voice ID: [id number] Report ID: [id number]
[2019-05-18] MEDS: CODEINE 30MG/APAP 300MG TAB PO PRN ×2 (00:15→11:06)
[2019-05-18] MEDS: IPRATROPIUM BROM 0.5MG/2.5ML NEB SCH ×3 (02:00→14:00)
[2019-05-18] MEDS: PANTOPRAZOLE 40MG TABLET PO SCH (05:35)
[2019-05-18 06:17] LABS: Absolute Lymphocytes (CBC) 0.9 K/uL (0.7-4.9); Basophils % 0.2 % (0-1.3); Hematocrit 39.6 % (39.6-49.0); Lymphocytes % 8.2 % (15.3-44.8); MPV 7.1 fL (7.6-11.3); RBC Red Blood Cell Count 4.55 M/uL (4.33-5.43)
[2019-05-18 06:32] LABS: BUN Blood Urea Nitrogen 11 mg/dL (7-18); Bicarbonate 29 mmol/L (21-32); Glucose Level 79 mg/dL (74-106); Potassium 3.6 mmol/L (3.5-5.1); Sodium Level 139 mmol/L (136-145)
[2019-05-18 07:03] LABS: Blood Morphology Comment NOT SEEN (NOT SEEN); Platelet Estimate ADEQ; Urine White Blood Cell Casts OK
[2019-05-18] MEDS: INSULIN -REGULAR HUMAN 50 UNIT/0.5 ML ML SQ SCH ×2 (07:30→11:30)
[2019-05-18] MEDS: PENTOXIFYLLINE ER 400 MG TAB PO SCH (08:30)
[2019-05-18] MEDS: ENOXAPARIN 40 MG/0.4 ML SQ SCH (08:30)
[2019-05-18] MEDS: GUAIFENESIN 600 MG SA TAB PO SCH (08:31)
[2019-05-18] MEDS: levoFLOXacin 750 MG TAB PO SCH (08:31)
[2019-05-18] MEDS: TAMSULOSIN 0.4 MG SR CAP PO SCH (08:31)
[2019-05-18] MEDS: ARFORMOTEROL TARTRATE 15 MCG/2 ML VIAL.NEB NEB SCH (08:38)
[2019-05-18] MEDS ORDERED: predniSONE 20 MG TAB PO SCH (09:00)
[2019-05-18] MEDS ORDERED: FINASTERIDE 5 MG TAB PO SCH (09:00)
[2019-05-18] MEDS ORDERED: POTASSIUM CL SA 10 MEQ TAB PO ONE (09:00)
--- NOTE | 2019-05-18 10:37 | PN ---
Subjective: Patient is doing well today. Urine output was 2700, intake was 2027 for negative of 620 . He is much better since his Reagan catheter was placed. He is waiting for home. He is waiting for approval for rehab. I would like to leave the catheter in at least a week. Continue low-dose antib iotic for him and try voiding trial in 1 week. Discontinue his finasteride and Flomax also. PB/MODL Voice ID: [id number] Report ID: [id number]
--- NOTE | 2019-05-18 13:11 | P.DS ---
Admission Date: 05/12/19 Discharge Date: 05/18/19 Primary Care Provider: [facility]; Oncology-Dr. Solomon Disposition: TRANSFER TO DETENTION Discharge Condition: GOOD Reason for Admission: Nausea, vomiting, poor appetite, fatigue Consultations: Urology Pulmonary Procedures: None. - Problems (1) COPD exacerbation Current Visit: Yes Status: Acute (2) Hematuria Current Visit: Yes Status: Acute (3) Acute urinary retention Current Visit: Yes Status: Acute (4) Hypertension Current Visit: No Status: Chronic Qualifiers: Hypertension type: essential hypertension Qualified Code(s): I10 - Essential (primary) hypertension Brief History of Present Illness: 74-year-old gentleman with a history of stage IIIB lung cancer hypertension presented to the emergency due to generalized weakness, shortness of breath, fever and chills. In the ED, patient noted to have sepsis. Chest x-ray demonstrated patchy opacities, small bilateral pleural effusions and emphysematous changes. Patient was started on IV antibiotics and admitted for further management. Hospital Course: Patient admitted to the medical floor and treated for sepsis, pneumonia and COPD exacerbation. He was treated with broad-spectrum antibiotics, scheduled bronchodilators including arfomoterol, xopenex and Ipratropium. He was seen by pmp certified project manager, patient also treated with IV steroids. His clinical condition improved with treatment. He initially required oxygen that he was eventually weaned off oxygen to room air which he tolerated. IV steroid was tapered to oral steroid and he need to continue steroid taper after discharge. Patient developed urinary retention, Reagan catheter was placed. Patient later ripped out the Reagan catheter and developed gross hematuria. He was seen by urology, three-way catheter was inserted and bladder irrigation was done. His urine later cleared up and three-way catheter removed for a voiding trial. He failed voiding trial and Reagan catheter was re-inserted. He was treated with finasteride and Flomax for BPH. Reagan catheter is supposed to be maintained after discharge for voiding trial within 1 week. He was evaluated by physical therapy, his functional status is improving with therapy. Rehab is recommended. Patient is deemed clinically stable for discharge to rehab. Vital Signs/Physical Exam: Temp Pulse Resp BP Pulse Ox 97.5 F 73 18 114/57 L 99 05/18/19 08:00 05/18/19 08:00 05/18/19 11:06 05/18/19 08:00 05/18/19 11:06 General: Alert, Oriented x3 HEENT: Mucous membr. moist/pink Neck: Supple, JVD not distended Respiratory: Clear to auscultation bilaterally, Normal air movement Cardiovascular: No edema, Regular rate/rhythm Gastrointestinal: Normal bowel sounds, Soft and benign, No tenderness Musculoskeletal: No clubbing, No erythema Integumentary: No rashes Neurological: Normal strength at 5/5 x4 extr, Cranial nerves 3-12 intact Laboratory Data at Discharge: WBC 11.5 K/uL (4.3-10.9) H 05/18/19 05:43 Hgb 13.3 g/dL (13.6-17.9) L 05/18/19 05:43 Hct 39.6 % (39.6-49.0) 05/18/19 05:43 Plt Count 284 K/uL (152-406) 05/18/19 05:43 PT 14.4 SECONDS (9.5-12.5) H 05/11/19 19:20 INR 1.23 05/11/19 19:20 Sodium 139 mmol/L (136-145) 05/18/19 05:43 Potassium 3.6 mmol/L (3.5-5.1) 05/18/19 05:43 BUN 11 mg/dL (7-18) 05/18/19 05:43 Creatinine 0.62 mg/dL (0.55-1.3) 05/18/19 05:43 Glucose 79 mg/dL (74-106) 05/18/19 05:43 Magnesium 2.4 mg/dL (1.8-2.4) 05/16/19 06:08 Total Bilirubin 0.6 mg/dL (0.2-1.0) 05/13/19 04:50 AST 25 U/L (15-37) 05/13/19 04:50 ALT 14 U/L (12-78) 05/13/19 04:50 Alkaline Phosphatase 65 U/L (45-117) 05/13/19 04:50 Lipase 81 U/L (73-393) 05/11/19 19:20 Home Medications: Finasteride [Proscar*] 5 mg PO DAILY 02/07/18 Simvastatin 20 mg PO BEDTIME 02/07/18 Tamsulosin [Flomax*] 0.4 mg PO DAILY 02/07/18 Ondansetron [Ondansetron Odt] 1 tab PO SEECOM PRN 02/11/19 Pentoxifylline 400 mg PO DAILY 05/12/19 Arformoterol Tartrate [Brovana] 15 mcg NEB BIDRESP 30 Days #60 vial.neb Benzonatate [Tessalon Perle*] 100 mg PO TID PRN cap 05/18/19 Finasteride [Proscar*] 5 mg PO DAILY tab 05/18/19 Ipratropium Neb [Atrovent*] 0.5 mg NEB [id number] amp 05/18/19 Levalbuterol [Xopenex*] 0.63 mg NEB [id number] PRN vial 05/18/19 Pantoprazole [Protonix Tab*] 40 mg PO DAILYAC 30 Days #30 tab 05/18/19 levoFLOXacin [Levaquin*] 750 mg PO DAILY 4 Days #4 tab 05/18/19 predniSONE [Prednisone*] 20 mg PO DAILY 3 Days #5 tab 05/18/19 New Medications: Arformoterol Tartrate [Brovana] 15 mcg NEB BIDRESP 30 Days #60 vial.neb levoFLOXacin [Levaquin*] 750 mg PO DAILY 4 Days #4 tab Pantoprazole [Protonix Tab*] 40 mg PO DAILYAC 30 Days #30 tab predniSONE [Prednisone*] 20 mg PO DAILY 3 Days #5 tab Patient Discharge Instructions: Voiding trial within 1 week. Diet: ADA Activity: Ad bettye Followup: Linda Jerry MD [ACTIVE - CAN ADMIT] - (within 2 weeks.)
[2019-05-18 17:02] VITALS: BP 114/56; TEMP 97.6
== END 2019-05-18 17:20 | disposition home or self-care (01) | DRG 871 ==
LOC: ER 17:48 → ERHOLD 05-12 00:56 → 2ND 05-12 01:09
PROVIDERS: ADMIT Family Medicine; ATTEND Family Medicine
DX: A41.9 Sepsis, unspecified organism (principal); J18.9 Pneumonia, unspecified organism; J44.0 Chronic obstructive pulmonary disease with (acute) lower respiratory infection; J44.1 Chronic obstructive pulmonary disease with (acute) exacerbation; C34.90 Malignant neoplasm of unspecified part of unspecified bronchus or lung; E46 Unspecified protein-calorie malnutrition; R33.9 Retention of urine, unspecified; R06.03 Acute respiratory distress; K21.9 Gastro-esophageal reflux disease without esophagitis; Z68.20 Body mass index [BMI] 20.0-20.9, adult; Z96.0 Presence of urogenital implants; F17.210 Nicotine dependence, cigarettes, uncomplicated
CPT/HCPCS: 36415; 71045; 74176; 76377; 80048; 80053; 80076; 81001; 82550; 82962; 83605; 83690; 83735; 84132; 84145; 84484; 85025; 85610; 87040; 87070; 87077; 87086; 87088; 87186; 87205; 93005; 94640; 94760; 96361; 96365; 96375; 97110; 97116; 97161; 97530; 99285; C9113; J0692; J1650; J2405; J2543; J2920; J3475; J7030; J7512; J7605

== ENCOUNTER 2019-06-03 00:07 | Emergency (ER) | payer OTHER ==
[2019-06-03 01:34] LABS: Absolute Lymphocytes (CBC) 0.9 K/uL (0.7-4.9); Basophils % 1.3 % (0-1.3); Hematocrit 38.1 % (39.6-49.0); Lymphocytes % 15.5 % (15.3-44.8); MPV 6.8 fL (7.6-11.3); RBC Red Blood Cell Count 4.48 M/uL (4.33-5.43)
[2019-06-03 01:51] LABS: ALT/SGPT 10 U/L (12-78); AST/SGOT 20 U/L (15-37); Albumin 2.7 g/dL (3.4-5.0); Alkaline Phosphatase 87 U/L (45-117); BUN Blood Urea Nitrogen 6 mg/dL (7-18); Bicarbonate 31 mmol/L (21-32); Bilirubin Direct 0.2 mg/dL (0-0.2); Bilirubin Total 0.7 mg/dL (0.2-1.0); Glucose Level 94 mg/dL (74-106); Lipase 43 U/L (73-393); Potassium 3.3 mmol/L (3.5-5.1); Protein, Total 6.2 g/dL (6.4-8.2); Sodium Level 133 mmol/L (136-145)
[2019-06-03 02:35] LABS: Urine Blood 2+ (NEG); Urine Glucose NEGATIVE (NEG); Urine Protein TRACE (NEG); Urine pH 5.5 (5.0-7.0)
[2019-06-03 02:36] LABS: Urine Bacteria <20 /HPF (NONE SEEN); Urine Culture Reflex Order NOT NEEDED
[2019-06-03 02:37] LABS: Calcium Oxalate Crystals- Ur MODERATE (NONE SEEN)
--- NOTE | 2019-06-03 04:21 | ER ---
Nurse's Notes [facility] Name: Vel Reynolds Age: 74 yrs Sex: Male : 1945 Arrival Date: 06/03/2019 Time: 00:10 Bed 7 Private MD: Diagnosis: Lower abdominal pain, unspecified;Vomiting Presentation: 06/03 00:17 Presenting complaint: Patient states: V/D x 1 day. Denies abd pain. Transition of care: aa1 patient was not received from another setting of care. Onset of symptoms was June 02, 2019. Risk Assessment: Do you want to hurt yourself or someone else? Patient reports no desire to harm self or others. Initial Sepsis Screen: Does the patient meet any 2 criteria? No. Patient's initial sepsis screen is negative. Does the patient have a suspected source of infection? No. Patient's initial sepsis screen is negative. Care prior to arrival: None. 00:17 Method Of Arrival: Wheelchair aa1 00:17 Acuity: BETSY 3 aa1 Triage Assessment: 00:20 General: Appears in no apparent distress. comfortable, Behavior is calm, cooperative, aa1 appropriate for age. Pain: Denies pain. Historical: - Allergies: 00:20 No Known Allergies; aa1 - Home Meds: 00:20 ondansetron 4 mg Oral TbDL every 4-6 hours [Active]; tamsulosin 0.4 mg Oral cp24 1 cap aa1 once daily [Active]; simvastatin 20 mg Oral tab 1 tab once daily [Active]; Ciprodex 0.3-0.1 % otic drps 4 drops 2 times per day [Active]; potassium chloride 20 mEq Oral TbTQ once daily [Active]; pentoxifylline 400 mg oral TbER [Active]; finasteride 5 mg Oral tab 1 tab once daily [Active]; Tylenol #3 Oral 1-2 tabs every 4-6 hrs as needed [Active]; - PMHx: 00:20 Diabetes - NIDDM; Hyperlipidemia; Hypertension; lung cancer- currently on chemo; Penile aa1 implant; throat cancer; - Immunization history:: Flu vaccine is not up to date. - Social history:: Smoking status: Patient uses tobacco products, 2 cigarettes per day. - Ebola Screening: : No symptoms or risks identified at this time. Screenin:06 Abuse screen: Denies threats or abuse. Denies injuries from another. Nutritional lp1 screening: No deficits noted. Tuberculosis screening: No symptoms or risk factors identified. Fall Risk Total Frias Fall Scale indicates High Risk Score (45 or more points). Fall prevention measures have been instituted. Side Rails Up X 2 As available patient and family educated on Fall Prevention Program and Strategies. Assessment: 00:45 Reassessment: Assisted patient with brief changed; BM noted. General: Appears in no lp1 apparent distress. Behavior is appropriate for age. Pain: Denies pain. Neuro: Level of Consciousness is awake, alert, obeys commands, Oriented to person, place, situation, Gait is unsteady. Cardiovascular: Patient's skin is warm and dry. Respiratory: Respiratory effort is even, unlabored. GI: Abdomen is flat, Bowel sounds present X 4 quads. Abd is soft and non tender X 4 quads. Reports intolerance of fluids, intolerance of food, nausea. : Reagan in place to gravity drainage Urine is tara in color Blisters noted on penis. EENT: No signs and/or symptoms were reported regarding the EENT system. Derm: Skin is fragile, is thin, Skin is dry, Skin is normal. Musculoskeletal: No deficits noted. 01:15 Reassessment: Patient denies any nausea at this time. lp1 02:30 Reassessment: Patient appears in no apparent distress at this time. Patient and/or lp1 family updated on plan of care and expected duration. Pain level reassessed. Patient is alert, oriented x 3, equal unlabored respirations, skin warm/dry/pink. 03:25 Reassessment: Patient and family aware of waiting for CT results. lp1 04:30 Reassessment: Patient appears in no apparent distress at this time. No changes from lp1 previously documented assessment. 04:45 Reassessment: Assisted patient with dressing for discharge. lp1 Vital Signs: 00:20 BP 102 / 57; Pulse 87; Resp 18; Temp 98.0; Pulse Ox 97% on R/A; Weight 66.68 kg; Height aa1 5 ft. 10 in. (177.80 cm); Pain 0/10; 01:15 BP 107 / 71; Pulse 80; Resp 18; Pulse Ox 99% on R/A; Pain 0/10; lp1 02:00 BP 111 / 64; Pulse 76; Resp 18; Pulse Ox 97% on R/A; lp1 03:00 BP 120 / 64; Pulse 79; Resp 18; Pulse Ox 98% on R/A; lp1 04:00 BP 123 / 64; Pulse 79; Resp 18; Pulse Ox 98% on R/A; lp1 04:45 BP 119 / 59; Pulse 77; Resp 18; Pulse Ox 99% on R/A; Pain 0/10; lp1 00:20 Body Mass Index 21.09 (66.68 kg, 177.80 cm) aa1 ED Course: 00:10 Patient arrived in ED. cf2 00:18 Triage completed. aa1 00:20 Arm band placed on left wrist. aa1 00:45 Ray Conrad MD is Attending Physician. 01:04 Ira Freeman, RN is Primary Nurse. lp1 01:06 Patient has correct armband on for positive identification. Placed in gown. Pulse ox lp1 on. NIBP on. 01:20 Inserted saline lock: 20 gauge in right antecubital area, using aseptic technique. cc3 Blood collected. 03:13 CT Abd/Pelvis - IV Contrast Only In Process Unspecified. EDMS 03:26 No provider procedures requiring assistance completed. lp1 05:04 IV discontinued, No redness/swelling at site. Pressure dressing applied. lp1 Administered Medications: No medications were administered Outcome: 04:21 Discharge ordered by . 05:04 Discharged to home via wheelchair, with family. lp1 05:04 Condition: good 05:04 Discharge instructions given to patient, family, Instructed on discharge instructions, follow up and referral plans. medication usage, Demonstrated understanding of instructions, follow-up care, medications, Prescriptions given X 1. 05:04 Patient left the ED. lp1 Signatures: Dispatcher [employer] EDMS Myra Richard RN RN aa1 Ira Freeman, RN RN lp1 Ray Conrad MD MD Coco Magana 3 [place] Tellez cf2 Corrections: (The following items were deleted from the chart) 00:21 00:20 Social history: Smoking status: Patient/guardian denies using tobacco, aa1 aa1
--- NOTE | 2019-06-03 04:22 | EDPHYS ---
Physician Documentation [facility] Name: Vel Reynolds Age: 74 yrs Sex: Male : 1945 Arrival Date: 06/03/2019 Time: 00:10 Bed 7 Private MD: ED Physician Ray Conrad HPI: 06/03 03:56 This 74 yrs old Male presents to ER via Wheelchair with complaints of Vomiting.gs 03:56 The patient presents to the emergency department with vomiting. Onset: The gs symptoms/episode began/occurred yesterday. Possible causes: unknown. The symptoms are aggravated by nothing. The symptoms are alleviated by nothing. Associated signs and symptoms: Pertinent positives: abdominal pain. Severity of symptoms: At their worst the symptoms were severe in the emergency department the symptoms have improved markedly. The patient has experienced similar episodes in the past, a few times. The patient has not recently seen a physician. Historical: - Allergies: 00:20 No Known Allergies; aa1 - Home Meds: 00:20 ondansetron 4 mg Oral TbDL every 4-6 hours [Active]; tamsulosin 0.4 mg Oral cp24 1 cap aa1 once daily [Active]; simvastatin 20 mg Oral tab 1 tab once daily [Active]; Ciprodex 0.3-0.1 % otic drps 4 drops 2 times per day [Active]; potassium chloride 20 mEq Oral TbTQ once daily [Active]; pentoxifylline 400 mg oral TbER [Active]; finasteride 5 mg Oral tab 1 tab once daily [Active]; Tylenol #3 Oral 1-2 tabs every 4-6 hrs as needed [Active]; - PMHx: 00:20 Diabetes - NIDDM; Hyperlipidemia; Hypertension; lung cancer- currently on chemo; Penile aa1 implant; throat cancer; - Immunization history:: Flu vaccine is not up to date. - Social history:: Smoking status: Patient uses tobacco products, 2 cigarettes per day. - Ebola Screening: : No symptoms or risks identified at this time. ROS: 03:56 All other systems are negative. gs Exam: 03:56 Head/Face: Normocephalic, atraumatic. Eyes: Pupils equal round and reactive to light, gs extra-ocular motions intact. Lids and lashes normal. Conjunctiva and sclera are non-icteric and not injected. Cornea within normal limits. Periorbital areas with no swelling, redness, or edema. ENT: Nares patent. No nasal discharge, no septal abnormalities noted. Tympanic membranes are normal and external auditory canals are clear. Oropharynx with no redness, swelling, or masses, exudates, or evidence of obstruction, uvula midline. Mucous membranes moist. Neck: Trachea midline, no thyromegaly or masses palpated, and no cervical lymphadenopathy. Supple, full range of motion without nuchal rigidity, or vertebral point tenderness. No Meningismus. Chest/axilla: Normal chest wall appearance and motion. Nontender with no deformity. No lesions are appreciated. Cardiovascular: Regular rate and rhythm with a normal S1 and S2. No gallops, murmurs, or rubs. Normal PMI, no JVD. No pulse deficits. Respiratory: Lungs have equal breath sounds bilaterally, clear to auscultation and percussion. No rales, rhonchi or wheezes noted. No increased work of breathing, no retractions or nasal flaring. Back: No spinal tenderness. No costovertebral tenderness. Full range of motion. Skin: Warm, dry with normal turgor. Normal color with no rashes, no lesions, and no evidence of cellulitis. MS/ Extremity: Pulses equal, no cyanosis. Neurovascular intact. Full, normal range of motion. Neuro: Awake and alert, GCS 15, oriented to person, place, time, and situation. Cranial nerves II-XII grossly intact. Motor strength 5/5 in all extremities. Sensory grossly intact. Cerebellar exam normal. Normal gait. 03:56 Constitutional: The patient appears alert, awake. 03:56 Abdomen/GI: Palpation: moderate abdominal tenderness, in the suprapubic area and right lower quadrant, rebound tenderness, is not appreciated. Vital Signs: 00:20 BP 102 / 57; Pulse 87; Resp 18; Temp 98.0; Pulse Ox 97% on R/A; Weight 66.68 kg; Height aa1 5 ft. 10 in. (177.80 cm); Pain 0/10; 01:15 BP 107 / 71; Pulse 80; Resp 18; Pulse Ox 99% on R/A; Pain 0/10; lp1 02:00 BP 111 / 64; Pulse 76; Resp 18; Pulse Ox 97% on R/A; lp1 03:00 BP 120 / 64; Pulse 79; Resp 18; Pulse Ox 98% on R/A; lp1 04:00 BP 123 / 64; Pulse 79; Resp 18; Pulse Ox 98% on R/A; lp1 04:45 BP 119 / 59; Pulse 77; Resp 18; Pulse Ox 99% on R/A; Pain 0/10; lp1 00:20 Body Mass Index 21.09 (66.68 kg, 177.80 cm) aa1 MDM: 02:17 Patient medically screened. 03:56 Differential diagnosis: pancreatitis, appendicitis, viral gastroenteritis, gs gastroenteritis. Data reviewed: vital signs, nurses notes, lab test result(s), radiologic studies. Response to treatment: the patient's symptoms have markedly improved after treatment, the patient's condition has returned to base line. 04:20 ED course: no emesis, no ruq tenderness. 06/03 01:14 Order name: Basic Metabolic Panel; Complete Time: 01: 06/03 01:14 Order name: CBC with Diff; Complete Time: 06/03 01:14 Order name: Hepatic Function; Complete Time: : 06/03 01:14 Order name: Lipase; Complete Time: : 06/03 01:52 Order name: Urine Microscopic Only; Complete Time: 04: 06/03 02:20 Order name: Urine Dipstick--Ancillary (enter results); Complete Time: 04:19 [facility] 06/03 01:14 Order name: IV Saline Lock; Complete Time: : 06/03 01:14 Order name: Labs collected and sent; Complete Time: 06/03 01:52 Order name: Urine Dipstick-Ancillary (obtain specimen); Complete Time: 03:14 06/03 02:17 Order name: CT Abd/Pelvis - IV Contrast Only Administered Medications: No medications were administered Disposition: 06/03/19 04:21 Discharged to Home. Impression: Lower abdominal pain, unspecified, Vomiting. - Condition is Stable. - Discharge Instructions: Abdominal Pain, Adult, Nausea and Vomiting, Adult. - Prescriptions for Zofran 4 mg Oral Tablet - take 1 tablet by ORAL route every 12 hours As needed; 6 tablet. - Medication Reconciliation Form, Thank You Letter, Antibiotic Education, Prescription Opioid Use form. - Follow up: Private Physician; When: 2 - 3 days; Reason: Re-evaluation by your physician. Signatures: Dispatcher [employer] Myra Hooker RN RN aa1 Ira Freeman RN RN lp1 Ray Conrad MD MD gs Corrections: (The following items were deleted from the chart) 00:21 00:20 Social history: Smoking status: Patient/guardian denies using tobacco, aa1 aa1 05:04 04:21 06/03/2019 04:21 Discharged to Home. Impression: Lower abdominal pain, lp1 unspecified; Vomiting. Condition is Stable. Forms are Medication Reconciliation Form, Thank You Letter, Antibiotic Education, Prescription Opioid Use. Follow up: Private Physician; When: 2 - 3 days; Reason: Re-evaluation by your physician. gs
[2019-06-03 05:11] VITALS: TEMP 98
[2019-06-03 05:18] VITALS: BP 119/59; O2SAT 99
--- NOTE | 2019-06-05 17:54 | RAD REPORT ---
EXAM DESCRIPTION: CT - Abdomen Pelvis W Contrast - 06/03/2019 3:55 am CLINICAL HISTORY: The patient is 74 years old and is Male; ABD PAIN TECHNIQUE: Axial computed tomography images of the abdomen and pelvis with intravenous contrast. S agittal and coronal reformatted images were created and reviewed. This CT exam was performed using one or more of the following dose reduction techniques: automated exposure control, adjustment of t he mA and/or kV according to patient size, and/or use of iterative reconstruction technique. COMPARISON: CT of the abdomen and pelvis May 11, 2019. FINDINGS: LUNG BASES: Unremarkable. No mass. No consolidation. PLEURAL SPACE: A trace left pleural effusion is present. ABDOMEN: LIVER: Unremarkable. No mass. GALLBLADDER AND BILE DUCTS: The gallbladder is distended. No calcified gallstones or ductal dila tation is seen. PANCREAS: The pancreas is atrophic. SPLEEN: Unremarkable. ADRENALS: Unremarkable. No mass. KIDNEYS AND URETERS: Punctate left intrarenal calcification is present. The kidneys enhance symm etrically. No obstructing renal or ureteral calculus is seen. STOMACH AND BOWEL: Stomach is filled with fluid and air. The small bowel is decompressed. Small rectal stool ball is noted. Minimal stool is present throughout the colon. There is no bowel obstruct ion. PELVIS: APPENDIX: The appendix is fluid-filled measuring upper limits of normal in size at 0.7 cm. The o verall appearance is similar to prior exam. There is no surrounding inflammation or fluid. BLADDER: A Reagan catheter is present within the decompressed urinary bladder. REPRODUCTIVE: A penile implant is present with the bulb located in the right lower quadrant. ABDOMEN and PELVIS: INTRAPERITONEAL SPACE: Unremarkable. No free air. No significant fluid collection. BONES/JOINTS: No acute fracture. SOFT TISSUES: Evidence of bilateral inguinal hernia repair is noted. VASCULATURE: Atherosclerosis of the vasculature is present. The vessels are normal in caliber. LYMPH NODES: Unremarkable. No enlarged lymph nodes. IMPRESSION: 1. Distended gallbladder. If there is clinical concern for acute gallbladder pathology , findings could be further evaluated with ultrasound or HIDA scan. 2. Left nephrolithiasis without obstruction. 3. Small left pleural effusion. 4. Chronic findings as above. Electronically signed by: Brisa Caro MD 06/03/2019 3:49 AM CDT Due to temporary technical issues with the PACS/Fluency reporting system, reports are being signed by the in house radiologist as a courtesy to ensure prompt reporting. The interpreting radiologist is f ully responsible for the content of the report.
== END 2019-06-03 05:04 | disposition home or self-care (01) ==
LOC: ER 00:07
DX: R11.10 Vomiting, unspecified (principal); C34.90 Malignant neoplasm of unspecified part of unspecified bronchus or lung; I10 Essential (primary) hypertension; E11.9 Type 2 diabetes mellitus without complications; E78.5 Hyperlipidemia, unspecified; Z72.0 Tobacco use; Z85.12 Personal history of malignant neoplasm of trachea
CPT/HCPCS: 85025; 80048; 36415; 80076; 83690; 74177; 99284; Q9967; 81003; 81015

== ENCOUNTER 2019-06-11 15:47 | Inpatient (IN) | payer OTHER, SELFPAY ==
[2019-06-11] MEDS ORDERED: NA CHLORIDE 0.9% 1,000 ML ONE (16:17)
--- NOTE | 2019-06-11 16:34 | RAD REPORT ---
EXAM DESCRIPTION: RAD - Chest Single View - 06/11/2019 4:27 pm CLINICAL HISTORY: COUGH Chest pain. COMPARISON: Chest Single View dated 05/13/2019; Chest Single View dated 05/11/2019; Chest Single View da mic 02/19/2019; Chest Single View dated 02/07/2018 FINDINGS: Portable technique limits examination quality. Ill-defined soft tissue is seen along the medial left upper lobe. Small amount of left pleural fluid is present. The right lung is grossly clear. The heart is normal in size. No displaced fractures.
[2019-06-11 16:47] LABS: Basophils % 0.2 % (0-1.3); Hematocrit 41.3 % (39.6-49.0); Lymphocytes % 8.6 % (15.3-44.8); MPV 7.2 fL (7.6-11.3); RBC Red Blood Cell Count 4.84 M/uL (4.33-5.43)
[2019-06-11 16:49] LABS: Protime INR 1.57
[2019-06-11] MEDS ORDERED: LIDOCAINE VISCOUS 2% SOLN 15 ML UDC ONE (16:50)
[2019-06-11] MEDS ORDERED: CEFTRIAXONE/SWI 1gm 1 GM/10 ML SYR ONE (16:54)
--- NOTE | 2019-06-11 17:03 | EDPHYS ---
Physician Documentation [facility] Name: Vel Reynolds Age: 74 yrs Sex: Male : 1945 Arrival Date: 06/11/2019 Time: 15:48 Bed 4 Private MD: HANY Physician Mao Green HPI: 06/11 16:53 This 74 yrs old Male presents to ER via EMS with complaints of vomiting and benigno hypotension. Historical: - Allergies: 16:01 No Known Allergies; ca1 - Home Meds: 16:01 tamsulosin 0.4 mg Oral cp24 1 cap once daily [Active]; simvastatin 20 mg Oral tab 1 tab ca1 once daily [Active]; ondansetron 4 mg Oral TbDL every 4-6 hours [Active]; Ciprodex 0.3-0.1 % Otic drps 4 drops 2 times per day [Active]; potassium chloride 20 mEq Oral TbTQ once daily [Active]; pentoxifylline 400 mg Oral TbER [Active]; finasteride 5 mg Oral tab 1 tab once daily [Active]; Tylenol #3 Oral 1-2 tabs every 4-6 hrs as needed [Active]; - PMHx: 16:01 Diabetes - NIDDM; Hyperlipidemia; Hypertension; lung cancer- currently on chemo; Penile ca1 implant; throat cancer; - PSHx: 16:01 None; ca1 - Immunization history:: Adult Immunizations not up to date. - Social history:: Smoking status: Patient uses tobacco products, denies chronic smoking, but will smoke occasionally. - Ebola Screening: : Patient negative for fever greater than or equal to 101.5 degrees Fahrenheit, and additional compatible Ebola Virus Disease symptoms Patient denies exposure to infectious person Patient denies travel to an Ebola-affected area in the 21 days before illness onset No symptoms or risks identified at this time. ROS: 16:55 Constitutional: Negative for fever, chills, and weight loss, Eyes: Negative for injury, benigno pain, redness, and discharge, ENT: Negative for injury, pain, and discharge, Neck: Negative for injury, pain, and swelling, Respiratory: Negative for shortness of breath, cough, wheezing, and pleuritic chest pain, Back: Negative for injury and pain, : Negative for injury, bleeding, discharge, and swelling, MS/Extremity: Negative for injury and deformity, Skin: Negative for injury, rash, and discoloration, Psych: Negative for depression, anxiety, suicide ideation, homicidal ideation, and hallucinations, Allergy/Immunology: Negative for hives, rash, and allergies, Endocrine: Negative for neck swelling, polydipsia, polyuria, polyphagia, and marked weight changes, Hematologic/Lymphatic: Negative for swollen nodes, abnormal bleeding, and unusual bruising. 16:55 Cardiovascular: Positive for palpitations. 16:55 Respiratory: Positive for cough. 16:55 Abdomen/GI: Positive for nausea and vomiting, nausea, vomiting, abdominal cramps. 16:55 Neuro: Positive for weakness. Exam: 16:55 Constitutional: This is a well developed, well nourished patient who is awake, alert, benigno and in no acute distress. Head/Face: Normocephalic, atraumatic. Eyes: Pupils equal round and reactive to light, extra-ocular motions intact. Lids and lashes normal. Conjunctiva and sclera are non-icteric and not injected. Cornea within normal limits. Periorbital areas with no swelling, redness, or edema. ENT: Nares patent. No nasal discharge, no septal abnormalities noted. Tympanic membranes are normal and external auditory canals are clear. Oropharynx with no redness, swelling, or masses, exudates, or evidence of obstruction, uvula midline. Mucous membranes moist. Neck: Trachea midline, no thyromegaly or masses palpated, and no cervical lymphadenopathy. Supple, full range of motion without nuchal rigidity, or vertebral point tenderness. No Meningismus. Chest/axilla: Normal chest wall appearance and motion. Nontender with no deformity. No lesions are appreciated. Respiratory: Lungs have equal breath sounds bilaterally, clear to auscultation and percussion. No rales, rhonchi or wheezes noted. No increased work of breathing, no retractions or nasal flaring. Abdomen/GI: Soft, non-tender, with normal bowel sounds. No distension or tympany. No guarding or rebound. No evidence of tenderness throughout. Back: No spinal tenderness. No costovertebral tenderness. Full range of motion. Male : Normal genitalia with no discharge or lesions. Skin: Warm, dry with normal turgor. Normal color with no rashes, no lesions, and no evidence of cellulitis. MS/ Extremity: Pulses equal, no cyanosis. Neurovascular intact. Full, normal range of motion. Neuro: Awake and alert, GCS 15, oriented to person, place, time, and situation. Cranial nerves II-XII grossly intact. Motor strength 5/5 in all extremities. Sensory grossly intact. Cerebellar exam normal. Normal gait. Psych: Awake, alert, with orientation to person, place and time. Behavior, mood, and affect are within normal limits. 16:55 Cardiovascular: Rate: tachycardic, Rhythm: regular, Pulses: Pulses are 4+ in bilateral radial, brachial, femoral, popliteal, posterior tibial and and dorsalis pedis arteries.. Heart sounds: normal, Edema: is not appreciated, JVD: is not appreciated. Vital Signs: 16:01 BP 106 / 58; Pulse 117; Resp 16 S; Temp 98.6(O); Pulse Ox 92% on R/A; Weight 66.68 kg ca1 (R); Height 5 ft. 10 in. (177.80 cm) (R); Pain 0/10; 16:45 BP 97 / 55; Pulse 115; Resp 19 S; Pulse Ox 94% on R/A; ca1 17:31 BP 117 / 59; Pulse 115; Resp 24 S; Pulse Ox 94% on R/A; ca1 18:30 BP 104 / 53; Pulse 109; Resp 20; Pulse Ox 95% on R/A; ca1 19:34 BP 104 / 54; Pulse 109; Resp 22 S; Temp 98.3(O); Pulse Ox 94% on R/A; bb 16:01 Body Mass Index 21.09 (66.68 kg, 177.80 cm) ca1 MDM: 16:11 Patient medically screened. [facility] 16:55 Data reviewed: vital signs, nurses notes, lab test result(s), EKG, radiologic studies, benigno plain films. 06/11 16:13 Order name: Basic Metabolic Panel; Complete Time: 17:12 [facility] 06/11 16:13 Order name: CBC with Diff; Complete Time: 19:03 [facility] 06/11 16:13 Order name: LFT's; Complete Time: 17:12 [facility] 06/11 16:13 Order name: Magnesium; Complete Time: 17:12 [facility] 06/11 16:13 Order name: NT PRO-BNP; Complete Time: 17:12 [facility] 06/11 16:13 Order name: PT-INR; Complete Time: 16:58 [facility] 06/11 16:13 Order name: Troponin (emerg Dept Use Only); Complete Time: 17:12 [facility] 06/11 16:13 Order name: XRAY Chest (1 view); Complete Time: 16:51 [facility] 06/11 16:13 Order name: Lipase; Complete Time: 17:12 [facility] 06/11 16:13 Order name: Blood Culture Adult (2) [facility] 06/11 16:13 Order name: Procalcitonin; Complete Time: 19:03 [facility] 06/11 16:13 Order name: Urine Culture [facility] 06/11 17:01 Order name: CBC Smear Scan; Complete Time: 19:03 EDMS 06/11 19:22 Order name: Urine Dipstick--Ancillary (enter results) 2 06/11 16:13 Order name: EKG; Complete Time: 16:14 [facility] 06/11 16:13 Order name: Cardiac monitoring; Complete Time: 16:16 [facility] 06/11 16:13 Order name: EKG - Nurse/Tech; Complete Time: 16:32 [facility] 06/11 16:13 Order name: IV Saline Lock; Complete Time: 16:32 [facility] 06/11 16:13 Order name: Labs collected and sent; Complete Time: 16:32 [facility] 06/11 19:03 Order name: EKG; Complete Time: 19:03 [facility] 06/11 16:13 Order name: O2 Per Protocol; Complete Time: 16:16 [facility] 06/11 16:13 Order name: O2 Sat Monitoring; Complete Time: 16:16 [facility] 06/11 16:13 Order name: Urine Dipstick-Ancillary (obtain specimen); Complete Time: 19:11 [facility] 06/11 16:53 Order name: Reagan; Complete Time: 17:13 [facility] 06/11 19:03 Order name: EKG - Nurse/Tech; Complete Time: 19:07 [facility] Administered Medications: 16:32 Drug: NS 0.9% 500 ml Route: IV; Rate: bolus; Site: right antecubital; ca1 17:00 Follow up: Response: No adverse reaction; IV Status: Completed infusion ca1 17:00 Drug: NS 0.9% 1000 ml Route: IV; Rate: 125 ml/hr; Site: right antecubital; ca1 18:00 Follow up: IV Status: Infusion continued upon admission ca1 17:00 Drug: Rocephin 1 grams Route: IV; Rate: per protocol; Site: right antecubital; ca1 17:31 Follow up: Response: No adverse reaction ca1 17:31 Follow up: IV Status: Completed infusion ca1 17:13 Drug: Neosporin Ointment 1 application {Note: tip of penis.} Route: Topical; Site: ca1 affected area; 17:15 Drug: Pepcid 20 mg Route: IVP; Site: right antecubital; ca1 19:05 Follow up: Response: No adverse reaction ca1 17:20 Drug: NS 0.9% 500 ml Route: IV; Rate: bolus; Site: right antecubital; ca1 18:00 Follow up: Response: No adverse reaction; IV Status: Completed infusion ca1 17:25 Drug: Magnesium Sulfate 1 grams Route: IVPB; Infused Over: 1 hrs; Site: right ca1 antecubital; 19:05 Follow up: Response: No adverse reaction; IV Status: Completed infusion ca1 17:29 Drug: Lovenox 40 mg Route: Sub-Q; Site: right lower abdomen; ca1 19:04 Follow up: Response: No adverse reaction ca1 17:30 Drug: Aspirin 162 mg Route: PO; ca1 19:04 Follow up: Response: No adverse reaction ca1 19:12 Drug: Lopressor 25 mg Route: PO; ca1 19:56 Follow up: Response: No adverse reaction ca1 Disposition: 06/11/19 17:02 Hospitalization ordered by Fred Doty for Inpatient Admission. Preliminary diagnosis are Vomiting, Volume depletion, Type 2 diabetes mellitus, Hypotension - resolved, Hypomagnesemia, Tachycardia, unspecified. - Bed requested for Telemetry/MedSurg (Inpatient). - Status is Inpatient Admission. ca1 - Condition is Fair. - Problem is new. - Symptoms have improved. UTI on Admission? No Signatures: Dispatcher [employer] EDMS Samina Hi Corey, MD MD cha Acob, Cheryl RN RN ca1 Corrections: (The following items were deleted from the chart) 17:15 17:02 Hospitalization Ordered by Fred Doty MD for Inpatient Admission. Preliminary benigno diagnosis is Vomiting; Volume depletion; Type 2 diabetes mellitus; Hypotension - resolved. Bed requested for Telemetry/MedSurg (Inpatient). Status is Inpatient Admission. Condition is Fair. Problem is new. Symptoms have improved. UTI on Admission? No. benigno 18:39 17:15 06/11/2019 17:02 Hospitalization Ordered by Fred Doty MD for Inpatient bd Admission. Preliminary diagnosis is Vomiting; Volume depletion; Type 2 diabetes mellitus; Hypotension - resolved; Hypomagnesemia; Tachycardia, unspecified. Bed requested for Telemetry/MedSurg (Inpatient). Status is Inpatient Admission. Condition is Fair. Problem is new. Symptoms have improved. UTI on Admission? No. benigno 20:11 18:39 06/11/2019 17:02 Hospitalization Ordered by Fred Doty MD for Inpatient ca1 Admission. Preliminary diagnosis is Vomiting; Volume depletion; Type 2 diabetes mellitus; Hypotension - resolved; Hypomagnesemia; Tachycardia, unspecified. Bed requested for Telemetry/MedSurg (Inpatient). Status is Inpatient Admission. Condition is Fair. Problem is new. Symptoms have improved. UTI on Admission? No. bd
--- NOTE | 2019-06-11 17:03 | ER ---
Nurse's Notes [facility] Name: Vel Reynolds Age: 74 yrs Sex: Male : 1945 Arrival Date: 06/11/2019 Time: 15:48 Bed 4 Private MD: Diagnosis: Vomiting;Volume depletion;Type 2 diabetes mellitus;Hypotension-resolved;Hypomagnesemia;Tachycardia, unspecified Presentation: 06/11 15:53 Presenting complaint: EMS states: Pt c/o nausea and vomiting for couple days. Family ca1 reports pt is unable to tolerate fluids and maybe dehydrated. Pt is diagnosed of Stage IV Lung Ca on L side and Stage III Throat CA. Pt is on chemotherapy, last treatment unknown. Pt has a Metzger with brown urine that has been going on for couple days too. Reason for Metzger unknown. BP on scene 74/60. Last BP taken 90/56. Transition of care: patient was not received from another setting of care. Onset of symptoms was June 11, 2019. Risk Assessment: Do you want to hurt yourself or someone else? Patient reports no desire to harm self or others. Initial Sepsis Screen: Does the patient meet any 2 criteria? No. Patient's initial sepsis screen is negative. Does the patient have a suspected source of infection? No. Patient's initial sepsis screen is negative. Care prior to arrival: Glucose check: 84. 15:53 Method Of Arrival: EMS: [facility] ca1 15:53 Acuity: BETSY 3 ca1 Historical: - Allergies: 16:01 No Known Allergies; ca1 - Home Meds: 16:01 tamsulosin 0.4 mg Oral cp24 1 cap once daily [Active]; simvastatin 20 mg Oral tab 1 tab ca1 once daily [Active]; ondansetron 4 mg Oral TbDL every 4-6 hours [Active]; Ciprodex 0.3-0.1 % Otic drps 4 drops 2 times per day [Active]; potassium chloride 20 mEq Oral TbTQ once daily [Active]; pentoxifylline 400 mg Oral TbER [Active]; finasteride 5 mg Oral tab 1 tab once daily [Active]; Tylenol #3 Oral 1-2 tabs every 4-6 hrs as needed [Active]; - PMHx: 16:01 Diabetes - NIDDM; Hyperlipidemia; Hypertension; lung cancer- currently on chemo; Penile ca1 implant; throat cancer; - PSHx: 16:01 None; ca1 - Immunization history:: Adult Immunizations not up to date. - Social history:: Smoking status: Patient uses tobacco products, denies chronic smoking, but will smoke occasionally. - Ebola Screening: : Patient negative for fever greater than or equal to 101.5 degrees Fahrenheit, and additional compatible Ebola Virus Disease symptoms Patient denies exposure to infectious person Patient denies travel to an Ebola-affected area in the 21 days before illness onset No symptoms or risks identified at this time. Screenin:02 Abuse screen: Denies threats or abuse. Denies injuries from another. Nutritional ca1 screening: Has had N/V for 3 or more days. Tuberculosis screening: No symptoms or risk factors identified. Fall Risk IV access (20 points). Ambulatory Aid- Crutches/Cane/Walker (15 pts). Assessment: 16:02 General: Appears in no apparent distress. comfortable, ill, Behavior is calm, ca1 cooperative, appropriate for age. Pain: Denies pain. Neuro: Level of Consciousness is awake, alert, obeys commands, Oriented to person, place, time, situation, Appropriate for age. Cardiovascular: Heart tones S1 S2 present Capillary refill < 3 seconds Patient's skin is warm and dry. Rhythm is sinus tachycardia. Respiratory: Airway is patent Respiratory effort is even, unlabored, Respiratory pattern is regular, symmetrical, Breath sounds are clear bilaterally. GI: Abdomen is flat, non-distended, Bowel sounds present X 4 quads. Abd is soft and non tender X 4 quads. Reports intolerance of fluids, nausea, vomiting, since couple days ago. : Metzger in place to gravity drainage Urine is brown in color. EMS reports it has been brown since couple days ago. EENT: No deficits noted. No signs and/or symptoms were reported regarding the EENT system. Derm: Skin is intact, is healthy with good turgor, Skin is pink, warm \\T\\ dry. Musculoskeletal: Circulation, motion, and sensation intact. Capillary refill < 3 seconds. 17:16 Reassessment: Patient appears in no apparent distress at this time. Patient and/or ca1 family updated on plan of care and expected duration. Pain level reassessed. Patient is alert, oriented x 3, equal unlabored respirations, skin warm/dry/pink. 17:31 Reassessment: Son at bedside. Updated on pt status and plan. Son reports last chemo tx ca1 was a over a month ago and is put on hold for at least 6 months, pending pt health evaluation. Son states, "he is too weak to go on with chemo treatment. After 6 months they will reevaluate". 18:30 Reassessment: Patient appears in no apparent distress at this time. Patient and/or ca1 family updated on plan of care and expected duration. Pain level reassessed. Patient is alert, oriented x 3, equal unlabored respirations, skin warm/dry/pink. 19:43 Reassessment: report called to Delores IRBY for room 216. Pt is awake and alert, IV site bb intact, metzger intact to bedside drain. Vital Signs: 16:01 BP 106 / 58; Pulse 117; Resp 16 S; Temp 98.6(O); Pulse Ox 92% on R/A; Weight 66.68 kg ca1 (R); Height 5 ft. 10 in. (177.80 cm) (R); Pain 0/10; 16:45 BP 97 / 55; Pulse 115; Resp 19 S; Pulse Ox 94% on R/A; ca1 17:31 BP 117 / 59; Pulse 115; Resp 24 S; Pulse Ox 94% on R/A; ca1 18:30 BP 104 / 53; Pulse 109; Resp 20; Pulse Ox 95% on R/A; ca1 19:34 BP 104 / 54; Pulse 109; Resp 22 S; Temp 98.3(O); Pulse Ox 94% on R/A; bb 16:01 Body Mass Index 21.09 (66.68 kg, 177.80 cm) ca1 ED Course: 15:48 Patient arrived in ED. jr8 15:51 Emily Cunha, RN is Primary Nurse. ca1 15:57 Triage completed. ca1 16:01 Arm band placed on right wrist. ca1 16:02 Patient has correct armband on for positive identification. Bed in low position. Call ca1 light in reach. Side rails up X2. Pulse ox on. NIBP on. Warm blanket given. 16:02 No provider procedures requiring assistance completed. ca1 16:08 EKG done, by nutrition tech. reviewed by Mao Green MD. sm3 16:11 Mao Green MD is Attending Physician. benigno 16:28 XRAY Chest (1 view) In Process Unspecified. EDMS 16:30 Initial lab(s) drawn, by me, sent to lab. First set of blood cultures drawn by me. ca1 16:32 Inserted saline lock: 20 gauge in right antecubital area, using aseptic technique. ca1 Blood collected. 16:50 Second set of blood cultures drawn by lab staff. ca1 16:55 Metzger cath removed intact, balloon deflated. ca1 16:59 Fred Doty MD is Hospitalizing Provider. benigno 17:00 Metzger cath inserted, using sterile technique, 16 Fr., by me, balloon inflated, to ca1 gravity drainage, other no urine output at this time. 19:44 Patient admitted, IV remains in place. bb Administered Medications: 16:32 Drug: NS 0.9% 500 ml Route: IV; Rate: bolus; Site: right antecubital; ca1 17:00 Follow up: Response: No adverse reaction; IV Status: Completed infusion ca1 17:00 Drug: NS 0.9% 1000 ml Route: IV; Rate: 125 ml/hr; Site: right antecubital; ca1 18:00 Follow up: IV Status: Infusion continued upon admission ca1 17:00 Drug: Rocephin 1 grams Route: IV; Rate: per protocol; Site: right antecubital; ca1 17:31 Follow up: Response: No adverse reaction ca1 17:31 Follow up: IV Status: Completed infusion ca1 17:13 Drug: Neosporin Ointment 1 application {Note: tip of penis.} Route: Topical; Site: ca1 affected area; 17:15 Drug: Pepcid 20 mg Route: IVP; Site: right antecubital; ca1 19:05 Follow up: Response: No adverse reaction ca1 17:20 Drug: NS 0.9% 500 ml Route: IV; Rate: bolus; Site: right antecubital; ca1 18:00 Follow up: Response: No adverse reaction; IV Status: Completed infusion ca1 17:25 Drug: Magnesium Sulfate 1 grams Route: IVPB; Infused Over: 1 hrs; Site: right ca1 antecubital; 19:05 Follow up: Response: No adverse reaction; IV Status: Completed infusion ca1 17:29 Drug: Lovenox 40 mg Route: Sub-Q; Site: right lower abdomen; ca1 19:04 Follow up: Response: No adverse reaction ca1 17:30 Drug: Aspirin 162 mg Route: PO; ca1 19:04 Follow up: Response: No adverse reaction ca1 19:12 Drug: Lopressor 25 mg Route: PO; ca1 19:56 Follow up: Response: No adverse reaction ca1 Outcome: 17:02 Decision to Hospitalize by Provider. benigno 19:44 Admitted to Tele accompanied by tech, via stretcher, room 216, with chart, Report bb called to Delores IRBY 19:44 Condition: stable 19:44 Instructed on the need for admit. 20:11 Patient left the ED. ca1 Signatures: Dispatcher [employer] EDMao Johnson MD MD cha Ballard, Brenda, RN RN Cruzito Hoover PA PA jr8 Mariam Mcguire 3 Emily Cunha RN RN ca1 Corrections: (The following items were deleted from the chart) 17:34 17:16 BP 97 / 55; Pulse 115bpm; Resp 19bpm; Spontaneous; Pulse Ox 94% RA; ca1 ca1
[2019-06-11 17:09] LABS: Albumin 2.5 g/dL (3.4-5.0); Bilirubin Direct 0.5 mg/dL (0-0.2); Bilirubin Total 1.1 mg/dL (0.2-1.0); Magnesium 1.6 mg/dL (1.8-2.4); Potassium 3.5 mmol/L (3.5-5.1); Protein, Total 6.5 g/dL (6.4-8.2); Troponin (Emerg Dept Use Only) 0.11 ng/mL (0.0-0.045)
--- NOTE | 2019-06-11 17:16 | EKG ---
Test Date: 2019-06-11 Test Time: 15:53:34 Boarder Machine: SHERMAN MEASUREMENT RESULTS: Intervals: Rate: 116 [place]: 152 QRSD: 76 QT: 328 QTc: 455 [place]: P: [place]: 152 QRS: 60 T: -65 INTERPRETIVE STATEMENTS: Sinus tachycardia ST & T wave abnormality, consider inferior ischemia ST & T wave abnormality, consider anterolateral ischemia Abnormal ECG Compared to ECG 05/11/2019 19:43:46 ST (T wave) deviation now present Possible ischemia now present Myocardial infarct finding no longer present Electronically Signed On 06-11-19 17:15:20 CDT by Demarcus Donato
[2019-06-11 17:21] LABS: Blood Morphology Comment NOT SEEN (NOT SEEN); Platelet Estimate ADEQ; Urine White Blood Cell Casts OK
[2019-06-11] MEDS ORDERED: ENOXAPARIN 40 MG/0.4 ML SQ ONE (17:22)
[2019-06-11] MEDS ORDERED: ASPIRIN EC 81 MG TAB PO ONE (17:22)
[2019-06-11] MEDS ORDERED: FAMOTIDINE 20 MG/2 ML VIAL IV ONE (17:22)
[2019-06-11] MEDS ORDERED: MAGNESIUM SULFATE 1 gm IVPB 1 GM/100 ML BAG IV ONE (17:22)
[2019-06-11] MEDS ORDERED: METOPROLOL TAR 25 MG TAB ONE (19:09)
[2019-06-11] MEDS ORDERED: ONDANSETRON 4 MG/2 ML VIAL IV PRN (20:24)
[2019-06-11] MEDS ORDERED: ACETAMINOPHEN 500 MG TAB PO PRN (20:24)
[2019-06-11] MEDS ORDERED: IPRATROPIUM BROM 0.5MG/2.5ML NEB PRN (20:24)
[2019-06-11] MEDS ORDERED: ALBUTEROL 2.5 MG/3 ML NEB SOL NEB PRN (20:24)
[2019-06-11] MEDS: INSULIN -REGULAR HUMAN 50 UNIT/0.5 ML ML SQ SCH (21:00)
[2019-06-11] MEDS: NA CHLORIDE 0.9% 1,000 ML IV SCH (21:00)
[2019-06-11] MEDS: ENOXAPARIN 60 MG/0.6 ML SQ SCH (22:15)
[2019-06-11 23:23] LABS: Urine Appearance CLOUDY; Urine Blood 2+ (NEG); Urine Color ORANGE; Urine Glucose NEGATIVE (NEG); Urine Protein TRACE (NEG)
[2019-06-11 23:43] LABS: Urine Bilirubin NEGATIVE (NEG)
[2019-06-12 00:15] LABS: Urine Bacteria 20-50 /HPF (NONE SEEN); Urine Culture Reflex Order REFLEXED
[2019-06-12] MEDS: HYDROMORPHONE HCL 0.5 MG/0.5 ML INJ IV PRN ×3 (00:59→16:23)
--- NOTE | 2019-06-12 05:12 | HP ---
Date of Admission: 06/11/2019 Primary Care Physician: At the [facility]. Consultants: Dr. Donato, Cardiology. Chief Complaint: Nausea, vomiting, and generalized weakness. History Of Present Illness: Patient is a 74-year-old male with past medical history of hypertension, diabetes, hyperlipidemia, BPH, lung and throat cancer, who was in his usual state of health until 2 days prior to admission when the patient had sudden onset of nausea, vomiting, decreased p.o. intake, inability to keep his food down. Patient does say that his son whom he lives with is also ill with similar symptoms. Patient is not currently on any chemotherapy. His symptoms are constant, moderate , progressively worsening. Denies any fevers or chills. Patient does report generalized weakness. Patient's blood pressure was in the 80s over 50s at home. Patient was given some fluids in EMS and h is blood pressure improved to 90s over 60s. Patient's workup revealed a procalcitonin of 1.17. His troponin was 0.11 and WBC was 12.1. Patient' s chest x-ray showed small amount of pleural fluid in the left ill-defined soft tissue along the medi al left upper lobe. Right lung was clear. Patient was given aspirin, 40 mg of Lovenox, Rocephin, IV fluid bolus, and 1 g of magnesium and then referred for admission. Patient's Reagan catheter was also changed out. Patient has a chronic Reagan catheter due to his prostate issues. When seen in the ER, he was awake, alert, oriented x3, in mild distress. Ill-appearing elderly male. Past Medical History: Hypertension; diabetes mellitus type 2, [id number]; hyperlipidemia; benign prostatic hyperplasia; obstructive uropathy with chronic Reagan; lung cancer, stage IV; throat cancer, stage III, follows with [facility]. Surgical History: Patient has a penile prosthesis. Allergies: NO KNOWN DRUG ALLERGIES. Medications: List reviewed. Social History: Patient smokes a few cigarettes per day. Denies any alcohol use or illicit drug use . Patient requires assistance with his activities of daily living. Family History: Positive for diabetes. Review of Systems: Ten-point system reviewed, negative except as per HPI. Physical Examination: Vital Signs: Blood pressure 106/58, pulse 117, respirations 16, temperature 98.6, O2 92% on room air , BMI is 21, weight is 66 kg. General: Awake, alert, oriented x3. Elderly male, ill-appearing, frail, cachectic. HEENT: Normocephalic, atraumatic. PERRLA, EOMI. Dry mucous membranes. Oropharynx is clear. Poor dentition. Conjunctivae are anicteric. Neck: Supple. No JVD. Trachea midline. CV: S1, S2. Sinus tachycardia. Peripheral pulses present. Respiratory: Diminished breath sounds, especially on the left. No wheezing or stridor. No use of a ccessory muscles. Gastrointestinal: Abdomen is soft, mild tenderness to palpation. No guarding or rigidity. Extremities: No clubbing, cyanosis, or edema. No calf tenderness. Neuro: Cranial nerves 2-12 intact grossly. No focal neurological deficit. Speech is somewhat alter ed, but comprehensible at baseline. Patient has generalized weakness. Skin: No rashes. Turgor is altered. Patient has some skin tenting. Psych: Mood is depressed. Affect is flat. Insight and judgment are fair. Laboratory Data: Sodium 137, potassium 3.5, chloride 97, CO2 of 30, BUN 10, creatinine 1.24, glucose 86, calcium 9.3, magnesium 1.6, total bilirubin 1.1, AST 25, ALT 11, troponin 0.11, albumin 2.5. Pr ocalcitonin 1.17. INR 1.57. WBC 12.1, H and H 14.2 and 41.3, platelets 356, neutrophils 72%. Chest x-ray, personally reviewed, shows ill-defined soft tissue seen along the medial left upper lobe. Sm all amount of left pleural fluid present. Right lung is grossly clear. Heart is normal in size. No displaced fractures. Assessment: A 74-year-old male with: 1.Systemic inflammatory response syndrome. Patient is hypotensive, blood pressure is 80s over 50s, now improved to 110s with IV fluid bolus. Patient is tachycardic. White blood cell count elevated a t 12. Source of infection is likely urinary. We will continue on IV fluids and IV antibiotics. Fol low up on cultures. We will obtain blood cultures as well. 2.Acute volume depletion due to above. Continue with IV fluids. 3.Intractable nausea and vomiting. We will place on clear liquid diet. Antiemetics IV, likely due to viral versus bacterial gastroenteritis. Patient did have ill contacts. No diarrhea at this time. 4.Diabetes mellitus type 2, ser-scikrnm-[id number], diet-controlled. We will place on sliding scale insulin. Monitor blood glucose levels. 5.Hypomagnesemia. We will replace and monitor. 6.Elevated troponin level. No chest pain, likely due to demand mismatch and hypertension. We will repeat level. Consult Cardiology. Obtain echocardiogram. 7.Essential hypertension, currently hypotensive. Hold all blood pressure medications for now. 8.Mixed hyperlipidemia. Continue statin. 9.Benign prostatic hypertrophy. Patient is on Flomax. Patient also has a chronic Reagan catheter, w hich was changed in the ER. 10.Lung cancer, stage IV and throat cancer, stage III, not currently in active treatment. [facility] with [facility]. 11.Deep venous thrombosis prophylaxis with Lovenox. Plan: Admit patient to Med-Surg, place as inpatient. Length of stay, greater than 2 midnights. Cod e status is do not intubate. /CARSON Voice ID: [id number]
[2019-06-12 06:07] LABS: Absolute Lymphocytes (CBC) 0.7 K/uL (0.7-4.9); Lymphocytes % 7.4 % (15.3-44.8); MPV 7.9 fL (7.6-11.3); RBC Red Blood Cell Count 4.25 M/uL (4.33-5.43)
[2019-06-12 06:10] LABS: ALT/SGPT 7 U/L (12-78); AST/SGOT 26 U/L (15-37); Albumin 2.1 g/dL (3.4-5.0); Alkaline Phosphatase 71 U/L (45-117); BUN Blood Urea Nitrogen 11 mg/dL (7-18); Bicarbonate 26 mmol/L (21-32); Glucose Level 72 mg/dL (74-106); HDL Cholesterol 22 mg/dL (40-60); LDL Cholesterol, Calculated 29 (<130); Magnesium 1.8 mg/dL (1.8-2.4); Phosphorus 4.5 mg/dL (2.5-4.9); Potassium 3.4 mmol/L (3.5-5.1); Protein, Total 5.4 g/dL (6.4-8.2); Sodium Level 139 mmol/L (136-145)
--- NOTE | 2019-06-12 06:11 | EKG ---
Test Date: 2019-06-11 Test Time: 19:08:20 Diplomatic Interpreter/Translator: EVANGELINA MEASUREMENT RESULTS: Intervals: Rate: 109 AL: 144 QRSD: 82 QT: 388 QTc: 522 [place]: P: AL: 144 QRS: 56 T: 38 INTERPRETIVE STATEMENTS: Sinus tachycardia T wave abnormality, consider anterior ischemia Prolonged QT Abnormal ECG Compared to ECG 06/11/2019 15:53:34 T-wave abnormality now present Prolonged QT interval now present ST (T wave) deviation no longer present Possible ischemia still present Electronically Signed On 06-12-19 06:11:31 CDT by Demarcus Donato
[2019-06-12] MEDS: NA CHLORIDE 0.9% 1,000 ML IV SCH ×2 (06:12→15:52)
[2019-06-12] MEDS: INSULIN -REGULAR HUMAN 50 UNIT/0.5 ML ML SQ SCH ×4 (07:30→21:00)
[2019-06-12] MEDS ORDERED: CEFTRIAXONE 1 GM/NS 50 ML 1 GM/50 ML BAG IV SCH (09:00)
[2019-06-12] MEDS: CEFTRIAXONE/SWI 1gm 1 GM/10 ML SYR IV SCH (09:47)
[2019-06-12] MEDS: ENOXAPARIN 60 MG/0.6 ML SQ SCH (10:00)
--- NOTE | 2019-06-12 12:12 | CON ---
I am asked to see Mr. Reynolds because of abnormal troponins. History Of Present Illness: Mr. Reynolds was not having chest pain or shortness of breath. He has nev er had any kind of heart trouble that he knows of. He does have severe underlying disease and is pre sently a partial do not resuscitate patient. He has orders not to intubate him if he should be unabl e to breathe or have a cardiac arrest. He has history of hypertension, diabetes, dyslipidemia, lung cancer, throat cancer in some degree of partial remission. He started to have a lot of nausea, troub le keeping foods down and since being in the hospital, he has been found to have evidence of a urinar y tract infection. He is presently being treated with antibiotics and seems to be getting better. I n the course of the workup, an EKG showed nonspecific T-wave abnormality, no evidence of infarction, injury, or ischemia and serial troponins have been 0.11, 0.09, 0.04. Procalcitonin is up and microbi ology has not identified an organism, but it seems that there are colonies growing in the urine that just have not been identified yet. Physical Examination: Constitutional: The patient is 5 feet 10 inches, 147 pounds, underweight. Heart: Does not reveal a friction rub or gallop. Abdomen: Soft. Extremities: Barely palpable distal pulses. Lungs: Diffuse mild large airway sounds. No crackles or wheezes. Impression: Mr. Reynolds is not having an acute coronary syndrome. I think he had a troponin release because of sepsis. We seemed to see this a lot. I would not recommend that we do any further testing on the heart. NINA/CARSON Voice ID: [id number] Report ID: [id number]
[2019-06-12] MEDS ORDERED: D50W 25 GM/50 ML SYRINGE IV ONE (12:13)
--- NOTE | 2019-06-12 12:28 | EKG ---
Test Date: 2019-06-12 Test Time: 07:02:45 Machine Tank Operator: JUAN MEASUREMENT RESULTS: Intervals: Rate: 69 [place]: QRSD: 74 QT: 386 QTc: 413 [place]: P: [place]: QRS: 25 T: 54 INTERPRETIVE STATEMENTS: Atrial fibrillation Low voltage QRS Abnormal ECG Compared to ECG 06/11/2019 19:08:20 Low QRS voltage now present Sinus tachycardia no longer present T-wave abnormality no longer present Possible ischemia no longer present Prolonged QT interval no longer present Electronically Signed On 06-12-19 12:26:53 CDT by Demarcus Donato
--- NOTE | 2019-06-12 14:51 | P.PN ---
Subjective Date of Service: 06/12/19 Chief Complaint: Nausea and vomiting The patient reports some nausea today. Her blood pressure has improved. Urine culture is pending. He has been afebrile. Physical Examination - Vital Signs Temperature: 98.9 F Blood Pressure: 112/58 Pulse: 109 Respirations: 19 Pulse Ox (%): 94 - Physical Exam General: Alert, In no apparent distress HEENT: Atraumatic, Normocephalic, Mucous membr. moist/pink Neck: Supple, JVD not distended Respiratory: Clear to auscultation bilaterally, Normal air movement Cardiovascular: No edema, Regular rate/rhythm, Normal S1 S2, No murmurs Capillary refill: <2 Seconds Gastrointestinal: Normal bowel sounds, Soft and benign, Non-distended, No tenderness Musculoskeletal: No clubbing, No swelling Integumentary: No rashes Neurological: Normal strength at 5/5 x4 extr, Cranial nerves 3-12 intact Lymphatics: No axilla or inguinal lymphadenopathy Urinary: Reagan catheter - Studies Laboratory Data (last 24 hrs) 06/11/19 16:24: PT 18.2 H, INR 1.57 06/11/19 16:24: WBC 12.1 H D, Hgb 14.2, Hct 41.3, Plt Count 356 06/11/19 16:24: Sodium 137, Potassium 3.5, BUN 10, Creatinine 1.24, Glucose 86, Magnesium 1.6 L D, Total Bilirubin 1.1 H, AST 25, ALT 11 L, Alkaline Phosphatase 86, Lipase 40 L Microbiology Data (last 24 hrs): 06/11/19 17:00 Blood - Blood Anaerobic Blood Culture - Final Assessment And Plan - Current Problems (Diagnosis) (1) Sepsis Current Visit: Yes Status: Acute (2) Hypotension Current Visit: Yes Status: Acute (3) Gastroenteritis Current Visit: Yes Status: Acute (4) UTI (urinary tract infection) Current Visit: Yes Status: Acute (5) BPH (benign prostatic hyperplasia) Current Visit: Yes Status: Acute (6) Elevated troponin Current Visit: Yes Status: Acute - Plan Continue IV hydration with normal saline. Continue IV Rocephin Urine culture result is pending. Follow urine culture. Reagan catheter is changed in the ED on the day of admission. Maintain Reagan catheter. Supportive measures with antiemetics Advanced diet as tolerated. Patient is seen by cardiology for elevated troponin. Elevated troponin considered to be secondary to sepsis and demand ischemia. Discontinue full dose Lovenox.
--- NOTE | 2019-06-12 17:11 | ECHO ---
HEIGHT: 5 ft 10 in WEIGHT: 147 lb 6.4 oz DATE OF STUDY: 06/12/[address]: tania ambrocio 2-DIMENSIONAL: YES M.MODE: YES DOPPLER: YES COLOR FLOW: YES TDS: YES PORTABLE: DEFINITY: BUBBLE STUDY: DIAGNOSIS: HYPOTENSION CARDIAC HISTORY: CATHERIZATION: NO SURGERY: NO PROSTHETIC VALVE: NO PACEMAKER: NO MEASUREMENTS (cm) DIASTOLIC (NORMALS) SYSTOLIC (NORMALS) IVSd 1.2 (0.6-1.2) LVEF 65% LVIDd 3.4 (3.5-5.7) LVIDs 2.2 (2.0-3.5) %FS 35% LVPWd 0.9 (0.6-1.2) Ao Diam 2.4 (2.0-3.7) 2 DIMENSIONAL ASSESSMENT: RIGHT ATRIUM: NORMAL LEFT ATRIUM: NORMAL RIGHT VENTRICLE: NORMAL LEFT VENTRICLE: NORMAL TRICUSPID VALVE: NORMAL MITRAL VALVE: NORMAL PULMONIC VALVE: NORMAL AORTIC VALVE: NORMAL PERICARDIAL EFFUSION: NONE AORTIC ROOT: NORMAL LEFT VENTRICULAR WALL MOTION: NORMAL DOPPLER/COLOR FLOW: NORMAL COMMENTS: NORMAL TWO DIMENSIONAL ECHOCARDIOGRAM WITH DOPPLER. TECHNOLOGIST: RO SANCHEZ
[2019-06-12 21:59] VITALS: BMI 21.1
[2019-06-13] MEDS: HYDROMORPHONE HCL 0.5 MG/0.5 ML INJ IV PRN ×2 (01:11→08:18)
[2019-06-13] MEDS: NA CHLORIDE 0.9% 1,000 ML IV SCH ×3 (01:13→13:12)
[2019-06-13 05:55] LABS: Absolute Lymphocytes (CBC) 0.6 K/uL (0.7-4.9); Basophils % 1.2 % (0-1.3); Hematocrit 33.6 % (39.6-49.0); Lymphocytes % 7.5 % (15.3-44.8)
[2019-06-13 06:02] LABS: ALT/SGPT 7 U/L (12-78); AST/SGOT 24 U/L (15-37); Albumin 1.9 g/dL (3.4-5.0); Alkaline Phosphatase 67 U/L (45-117); BUN Blood Urea Nitrogen 8 mg/dL (7-18); Bicarbonate 28 mmol/L (21-32); Bilirubin Total 0.8 mg/dL (0.2-1.0); Glucose Level 100 mg/dL (74-106); Potassium 3.2 mmol/L (3.5-5.1); Protein, Total 5.1 g/dL (6.4-8.2); Sodium Level 139 mmol/L (136-145)
[2019-06-13] MEDS ORDERED: POTASSIUM CL 40 MEQ in NA CHLORIDE 0.9% 500 ML IV SCH (07:00)
[2019-06-13] MEDS: INSULIN -REGULAR HUMAN 50 UNIT/0.5 ML ML SQ SCH ×2 (07:30→11:30)
[2019-06-13] MEDS: CEFTRIAXONE/SWI 1gm 1 GM/10 ML SYR IV SCH (08:21)
[2019-06-13 11:21] VITALS: O2SAT 98
--- NOTE | 2019-06-13 13:24 | P.DS ---
Admission Date: 06/11/19 Discharge Date: 06/13/19 Disposition: TRANSFER TO SKILLED NURSING Discharge Condition: FAIR Reason for Admission: Nausea and vomiting - Problems (1) Sepsis Current Visit: Yes Status: Acute (2) Hypotension Current Visit: Yes Status: Acute (3) Gastroenteritis Current Visit: Yes Status: Acute (4) UTI (urinary tract infection) Current Visit: Yes Status: Acute (5) BPH (benign prostatic hyperplasia) Current Visit: Yes Status: Acute (6) Elevated troponin Current Visit: Yes Status: Acute Brief History of Present Illness: 74-year-old man with a history of BPH, chronic urinary retention with indwelling Reagan catheter presented to the emergency department due to nausea, vomiting and decreased oral intake of 2 days duration. Patient reports his son also experienced similar symptoms. In the ED, patient was noted to be hypotensive, had mild leukocytosis and procalcitonin elevated. His troponin was also mildly elevated. He was resuscitated with IV normal saline and admitted for further management of hypotension and sepsis. Hospital Course: Patient admitted to the medical floor. Treated with IV hydration with normal saline and IV antibiotics. Urine culture and blood culture reported no growth. His blood pressure improved with IV hydration. He tolerated feeding without nausea or vomiting. His troponin was mildly elevated but flat with no acute rise to suggest acute coronary ischemia. He was evaluated by cardiology-Dr. Donato and his elevated troponin considered to be secondary to sepsis and demand ischemia. Sepsis has resolved, cultures have yielded no growth. His chest x-ray reported Oscal soft tissue density in the left upper lobe. Patient is prescribed Augmentin for possible pneumonia and also for possible Reagan catheter associated UTI. Vital Signs/Physical Exam: Temp Pulse Resp BP Pulse Ox 98.2 F 90 19 130/55 L 98 06/13/19 08:00 06/13/19 08:00 06/13/19 08:48 06/13/19 08:00 06/13/19 08:48 General: Alert, In no apparent distress, Oriented x3 HEENT: Mucous membr. moist/pink Neck: Supple, JVD not distended Respiratory: Normal air movement, Other (Mild scattered rhonchi.) Cardiovascular: No edema, Regular rate/rhythm, Normal S1 S2, No murmurs Capillary refill: <2 Seconds Gastrointestinal: Normal bowel sounds, Soft and benign, Non-distended, No tenderness Musculoskeletal: No clubbing, No swelling Integumentary: No rashes Neurological: Normal strength at 5/5 x4 extr, Cranial nerves 3-12 intact Urinary: Reagan catheter Laboratory Data at Discharge: WBC 8.3 K/uL (4.3-10.9) D 06/13/19 05:11 Hgb 11.5 g/dL (13.6-17.9) L 06/13/19 05:11 Hct 33.6 % (39.6-49.0) L 06/13/19 05:11 Plt Count 218 K/uL (152-406) D 06/13/19 05:11 PT 18.2 SECONDS (9.5-12.5) H 06/11/19 16:24 INR 1.57 06/11/19 16:24 Sodium 139 mmol/L (136-145) 06/13/19 05:11 Potassium 3.2 mmol/L (3.5-5.1) L 06/13/19 05:11 BUN 8 mg/dL (7-18) 06/13/19 05:11 Creatinine 0.60 mg/dL (0.55-1.3) 06/13/19 05:11 Glucose 100 mg/dL (74-106) 06/13/19 05:11 Phosphorus 4.5 mg/dL (2.5-4.9) 06/12/19 05:10 Magnesium 1.8 mg/dL (1.8-2.4) 06/12/19 05:10 Total Bilirubin 0.8 mg/dL (0.2-1.0) 06/13/19 05:11 AST 24 U/L (15-37) 06/13/19 05:11 ALT 7 U/L (12-78) L 06/13/19 05:11 Alkaline Phosphatase 67 U/L (45-117) 06/13/19 05:11 Troponin I 0.04 ng/mL (0.0-0.045) 06/12/19 05:10 Triglycerides 118 mg/dL (<150) 06/12/19 05:10 Cholesterol 75 mg/dL (<200) 06/12/19 05:10 HDL Cholesterol 22 mg/dL (40-60) L 06/12/19 05:10 Cholesterol/HDL Ratio 3.41 06/12/19 05:10 Lipase 40 U/L (73-393) L 06/11/19 16:24 Home Medications: Acetaminophen with Codeine [Acetaminophen-Cod #3 Tablet] 1 tab PO Q4HR 06/13/19 Albuterol Neb [Proventil 0.083% Neb Soln] 2.5 mg NEB Q6HP PRN #0 amp 06/13/19 Amox/Clavulanate [Augmentin 875-125 Tab] 1 each PO BID 7 Days #14 tab 06/13/19 Arformoterol Tartrate [Brovana] 2 ml IH BID 06/13/19 Finasteride [Proscar*] 1 tab PO DAILY 06/13/19 Ipratropium Neb [Atrovent*] 0.5 mg NEB [id number] PRN amp 06/13/19 Ondansetron HCl [Zofran] 1 tab PO Q6HR PRN 06/13/19 Pantoprazole Sodium [Protonix] 1 tab PO [id number] 06/13/19 Pentoxifylline 1 tab PO DAILY 06/13/19 Simvastatin 1 tab PO BEDTIME 06/13/19 Tamsulosin [Flomax*] 1 cap PO DAILY 06/13/19 New Medications: Amox/Clavulanate [Augmentin 875-125 Tab] 1 each PO BID 7 Days #14 tab Diet: AHA Activity: Ad bettye
[2019-06-13 15:47] VITALS: BP 130/62; TEMP 98
== END 2019-06-13 15:57 | DRG 871 ==
LOC: ER 15:47 → ERHOLD 17:51 → 2ND 19:57
PROVIDERS: ADMIT Family Medicine; ATTEND Family Medicine
DX: A41.9 Sepsis, unspecified organism (principal); J18.9 Pneumonia, unspecified organism; T83.511A Infection and inflammatory reaction due to indwelling urethral catheter, initial encounter; N40.0 Benign prostatic hyperplasia without lower urinary tract symptoms; I95.9 Hypotension, unspecified; K52.9 Noninfective gastroenteritis and colitis, unspecified; R79.89 Other specified abnormal findings of blood chemistry
CPT/HCPCS: 36415; 51702; 71045; 80048; 80053; 80061; 80076; 81001; 82962; 83690; 83735; 83880; 84100; 84145; 84484; 85025; 85610; 87040; 87070; 87086; 87088; 87205; 93005; 93306; 94760; 96365; 96368; 96372; 96375; 99285; J0696; J1170; J1650; J3475; J7030; J7040